=== PATIENT | male | born 1970 | race Caucasian/White ===

== ENCOUNTER 2016-11-13 16:29 | Observation (INO) | payer MEDICARE, OTHER ==
[~2016-11-13] VITALS: Ht 180.3 cm; Wt 122.3 kg
--- NOTE | ~2016-11-13 | HEMODYNAMI ---
PATIENT:DARA TOMPKINS MEDICAL RECORD: [id number] : 70 LOCATION:[facility] D.2114 ADMISSION DATE: 11/13/16 Generatedon:11/15/20169:49 Patient name: DARA TOMPKINS Patient #: [id number] SSN: : 1970 Date of study: 11/15/2016 Page: Of Hemodynamic Procedure Report Patient Data Patient Demographics Procedure consent was obtained First Name: DARA Gender: Male Last Name: LEDA : 1970 [facility] Initial: H Age: 46 year(s) Patient #: [id number] Race: Additional ID: [id number] Contact details Address: [address] [place] [address] State: [place] City: [place] Zip code: [address] Past Medical History History of disease Date Diagnosis Comments CAD Allergies: No known allergies Admission Admission Data Admission Date: 11/13/2016 Admission Time: 16:29 Room #: D.2114 Insurance Payor: Private health insurance, Medicare Height (in.): 71 BSA: 2.4 (m2) Height (cm.): 180.34 BMI: 37.82 (kg/m2) Weight (lbs.): 271.17 Weight (kg.): 123 Procedure Procedure Types Cath Procedure Diagnostic Procedure C [facility] w/Coronaries Miscellaneous Procedures Moderate Sedation up to 15 minutes Procedure Description Procedure Date Procedure Date: 11/15/2016 Procedure Start Time: 9:37 Procedure End Time: 9:44 Procedure Staff Name Function iRley Tran MD Performing Physician Kelly Marie RT Scrub Keith Gallardo RN Nurse Shashank Gilliam RT Monitor Procedure Data Cath Procedure Fluoroscopy Diagnostic fluoroscopy Total fluoroscopy Time: 1.2 time: 1.2 min min Diagnostic fluoroscopy Total fluoroscopy dose: 589 dose: 589 mGy mGy Contrast Material Contrast Material Type Amount (ml) Isovue 300 49 Entry Location Entry Primary Successful Side Size Upsize Upsize Entry Closure Succes sful Closure Location (Fr) 1 (Fr) 2 (Fr) Remarks Device Remarks Femoral Right 5 Fr Vascade artery Closure System Estimated blood loss: 5 ml Diagnostic catheters Device Type Used For End Catheter Placement Cordis 5Fr Pigtail Procedure Catheter (MP) Cordis 5Fr JL 4.0 Procedure Catheter (MP) Cordis 5Fr 3DRC Catheter Procedure (MP) Procedure Complications No complications Procedure Medications Medication Administration Route Dosage Oxygen NC 2 l/min Lidocaine 2% added to field 20 Heparin Flush Bag added to field 2 bags (1000units/500ml NS) 0.9% NaCl I.V. 100 ml/hr Versed I.V. 2 mg Fentanyl I.V. 100 mcg Versed I.V. 1 mg Fentanyl I.V. 50 mcg Versed I.V. 1 mg Hemodynamics Rest BSA: 2.4 (m2) O2 Consumption: Estimated: 284.47 (ml/min) O2 Consumption indexed: Estimated:118.53 (ml/min/m) Heart Rate: 65 (bpm) Snapshots Pre Cath Intra NCS Post Cath Vital Signs Time Heart Resp SPO2 etCO2 [id number] NIBP Rhythm Pain Sedation Rate (ipm) (%) (mmHg) (mmHg) (mmHg) Status Level (bpm) 9:31:21 64 14 95 0 0 94/54(79) NSR 0 (11) 10(A) , No pain 9:35:30 63 16 94 0 0 101/51(77) NSR 0 (11) 10(A) , No pain 9:39:40 62 17 94 0 0 101/51(68) NSR 0 (11) 9(A) , No pain 9:43:44 61 16 95 0 0 91/65(83) NSR 0 (11) 9(A) , No pain 9:48:31 64 16 94 0 0 85/63(69) NSR 0 (11) 10(A) , No pain Medications Time Medication Route Dose Verified Delivered Reason Notes Effect iveness by by 9:25:56 Oxygen NC 2 Riley Buffie used for l/min Chelsea Gallardo RN procedure 9:26:02 Lidocaine 2% added 20ml Riley Buffie used for to vial Chelsea Gallardo nurse [employer] field 9:26:07 Heparin Flush added 2 Riley Buffie used for Bag to bags Chelsea Gallardo nurse [employer] (1000units/500ml field NS) 9:26:16 0.9% NaCl I.V. 100 Riley Parker Per ml/hr Chelsea Gallardo RN physician 9:34:09 Versed I.V. 2 mg Riley Parker for Chelsea Gallardo RN sedation 9:34:14 Fentanyl I.V. 100 Riley Parker for mcg Chelsea Gallardo RN sedation 9:39:39 Versed I.V. 1 mg Riley Parker for Chelsea Gallardo RN sedation 9:39:53 Fentanyl I.V. 50 Riley Willettie for mcg Chelsea Gallardo RN sedation 9:42:00 Versed I.V. 1 mg Riley Parker for Chelsea Gallardo RN sedation Procedure Log Time Note 9:00:25 Kelly Marie RT(R) sent for patient. Start room use. 9:07:08 Diagnostic Cath Status : Elective 9:07:33 Time tracking: Regular hours 9:08:02 Plan of Care:Hemodynamics will remain stable., Cardiac rhythm will remain stable., Comfort level will be maintained., Respiratory function will remain adequate., Patient/ family verbilizes understanding of procedure., Procedure tolerated without complication., Recovers from procedure without complications.. 9:25:56 Oxygen 2 l/min NC was given by Keith Gallardo RN; used for procedure; 9:25:57 Patient received from Med II to CCL 1 Alert and oriented. Tansferred to table in Supine position. 9:26:02 Lidocaine 2% 20ml vial added to field was given by Keith Gallardo RN; used for procedure; 9:26:07 Heparin Flush Bag (1000units/500ml NS) 2 bags added to field was given by Keith Gallardo RN; used for procedure; 9:26:16 0.9% NaCl 100 ml/hr I.V. was given by Keith Gallardo RN; Per physician; 9:29:46 Kelly Marie RT(R) was relieved by Shashank Gilliam RT(R) as monitoring person 9:29:52 Plan of Care:Hemodynamics will remain stable., Cardiac rhythm will remain stable., Comfort level will be maintained., Respiratory function will remain adequate., Patient/ family verbilizes understanding of procedure., Procedure tolerated without complication., Recovers from procedure without complications.. 9:30:05 Warm blankets applied, and regine hugger turned on for patient comfort. 9:30:06 Correct patient and procedure confirmed by team. 9:30:07 Signed procedure consent form obtained from patient. 9:30:08 ECG and BP/O2 sat monitors applied to patient. 9:30:09 Baseline sample Acquired. 9:30:09 Vital chart was started 9:30:24 Rhythm: sinus rhythm 9:30:25 Full Disclosure recording started 9:31:20 H&P Date Dictated: 11/14/2016 Within 30 days and on chart.. 9:31:21 Pre-procedure instructions explained to patient. 9:31:21 Pre-op teaching completed and patient verbalized understanding. 9:31:23 Family unavailable. 9:31:24 Patient NPO since Midnight. 9:31:32 Patient allergic to No known allergies 9:31:34 Is the patient allergic to Iodine/contrast media? No. 9:31:35 Is patient on blood thinner?Yes 9:31:38 ACC The patient was administered the following blood thiners within the last 24 hours: ACCEffient 9:31:39 Patient diabetic? No. 9:31:43 Previous problem with sedation/anesthesia? No ? 9:31:46 Snore? Yes 9:31:47 Sleep apnea? Yes 9:31:48 Deviated septum? No 9:31:49 Opens mouth fully? Yes 9:31:49 Sticks out tongue? Yes 9:31:53 Airway obstruction? Yes COPD 9:31:57 Dentures? No ? 9:32:02 Pre procedure: right dorsailis pedis pulse 2+ Normal; easily identifiable; not easily obliterated 9:32:05 Patient pain scale 7/10 ?. 9:32:23 IV patent on arrival in left forearm with 0.9% NaCl at [facility]. 9:32:58 Lab Result : Creatinine 0.6 mg/dl 9:32:58 Lab Result : BUN 6 mg/dl 9:32:58 Lab Result : Hemoglobin 14.8 g/dl 9:33:03 Lab results completed and on chart. 9:33:05 Right groin area was prepped with chlora-prep and draped in sterile fashion 9:33:06 Alarms reviewed by R. N. 9:33:06 Sharps counted by scrub and verified by R.N. 9:33:10 Use device set Femoral Dx 9:33:11 Tegaderm 4 x 4 opened to sterile field. 9:33:14 Acist Manifold opened to sterile field. 9:33:15 Acist Hand Control opened to sterile field. 9:33:17 Acist Syringe opened to sterile field. 9:33:17 Bag Decanter opened to sterile field. 9:33:18 Cardinal Cath Pack opened to sterile field. 9:33:19 Terumo 5Fr [place] Sheath opened to sterile field. 9:33:19 St Abdiel 260cm J .035 wire opened to sterile field. 9:33:20 Cordis Infinity 5Fr Multipack catheter opened to sterile field. 9:33:28 --------ALL STOP TIME OUT------ 9:33:28 Final Timeout: patient, procedure, and site verified with staff and physician. All members of the team are in agreement. 9:33:30 Right groin site verified by team. 9:33:33 Physical assessment completed. ASA score P 3 - A patient with severe systemic disease as per Riley Tran MD. 9:33:35 Sedation plan: IV Moderate Sedation Versed, Fentanyl 9:34:09 Versed 2 mg I.V. was given by Keith Gallardo RN; for sedation; 9:34:14 Fentanyl 100 mcg I.V. was given by Keith Gallardo RN; for sedation; 9:36:57 Zero performed for pressure channel P1 9:37:05 Procedure started. 9:37:08 Local anesthetic to right femoral artery with Lidocaine 2% by Riley Tran MD.INITIAL ACCESS ONLY 9:37:15 A 5 Fr sheath was inserted into the Right Femoral artery 9:37:21 A Cordis 5Fr Pigtail Catheter (MP) was advanced over the wire and used for Procedure. 9:37:57 LV gram done using AQUINO 9:38:02 EF : 50 % 9:38:03 Catheter exchanged over wire. 9:38:07 A Cordis 5Fr JL 4.0 Catheter (MP) was advanced over the wire and used for Procedure. 9:39:10 LCA angiography performed. 9:39:39 Versed 1 mg I.V. was given by Keith Gallardo RN; for sedation; 9:39:53 Fentanyl 50 mcg I.V. was given by Keith Gallardo RN; for sedation; 9:40:24 Catheter exchanged over wire. 9:40:31 A Cordis 5Fr 3DRC Catheter (MP) was advanced over the wire and used for Procedure. 9:40:57 RCA totally occluded 9:41:03 Catheter removed. 9:41:09 Vascade 5Fr Closure Device opened to sterile field. 9:41:18 Patient Weight : 271.17 lbs 9:41:29 Patient Height : 71 inches 9:41:39 Insurance Payor : Private health insurance, Medicare 9:42:00 Versed 1 mg I.V. was given by Keith Gallardo RN; for sedation; 9:42:03 Sheath removed intact; hemostasis achieved with Vascade Closure System to the Right Femoral artery. 9:42:22 Procedure ended.(Physican Out) 9:42:35 Fluoroscopy time 01.20 minutes. 9:42:39 Flurop Dose total: 589 9:42:39 Fluoroscopy dose: 589 mGy 9:42:51 Contrast amount:Isovue 300 49ml. 9:42:53 Sharps counted by scrub and verified by R.N. 9:42:53 Insertion/operative site no bleeding no hematoma. 9:42:57 Post-op/insertion site Right Femoral artery dressed using a 4 x 4 and Tegaderm. 9:43:00 Post right femoral artery:stable, soft, clean and dry 9:43:02 Post Procedure Pulses reassessed and unchanged 9:43:09 Post-procedure physical assessment completed. ASA score P 3 - A patient with severe systemic disease as per Riley Tran MD. 9:43:12 Post procedure rhythm: unchanged. 9:43:14 Estimated blood loss: 5 ml 9:43:15 Post procedure instruction explained to patient.Patient verbalizes understanding. 9:43:15 Patient needs reinforcement of post procedure teaching. 9:43:57 Procedure type changed to Cath procedure, Diagnostic procedure, LHC, LHC w/Coronaries, Miscellaneous Procedures, Moderate Sedation up to 15 minutes 9:44:10 Procedure and supply charges have been captured, reviewed, submitted and are correct. 9:44:12 Procedure Complication : No complications 9:44:14 Vital chart was stopped 9:44:14 See physician's report for complete and final results. 9:44:15 Report given to PCU. 9:44:17 Patient transfered to PCU with Stretcher. 9:44:19 Procedure ended. 9:44:19 Full Disclosure recording stopped 9:44:25 ACC-PCI Only Patient was given prescriptions, or instructed by Riley Tran MD to start/continue the following medications upon discharge: Effient 9:45:14 End room use (Document Last) Device Usage Item Name Manufacture Quantity Catalog Number Hospital Part Current Minimal Lot# / Charge Number Stock Stock Serial# Code Tegaderm 1 [id number] [id number] 197799 5 4 x 4 Acist Acist 1 59388 206415 127000 594140 5 Manifold Medical Systems Inc Acist Acist 1 97712 044550 427086 019281 5 Hand Medical Control Systems Inc Acist Acist 1 25253 703468 165641 185519 20 Syringe Medical Systems Inc Bag Microtek 1 2002S 453487 08836 412235 5 Decanter Medical Inc. Cardinal Cardinal 1 [id number] 162635 33395 298618 5 Cath Pack Health Terumo Terumo 1 [id number] 306551 176917 631870 [address] [place] [address] Abd[address] St Abdiel 1 955847 704833 256369 703046 30 260cm J .035 wire Cordis Cardinal 1 [id number] 605485 37230 663481 30 Infinity Health 5Fr Multipack catheter Cordis Cardinal 1 105574 5 5Fr Health Pigtail Catheter (MP) Cordis Cardinal 1 691939 5 5Fr JL Health 4.0 Catheter (MP) Cordis Cardinal 1 [id number] 5 5Fr 3DRC Health Catheter (MP) Vascade Cardiva 1 [id number] 556022 34585 264636 10 5Fr Medical, Closure Inc. Device Signature Audit [place] Stage Time Signature Unsigned Intra-Procedure 11/15/2016 Shashank Gilliam 9:49:16 AM RT(R) Signatures Monitor : Shashank Gilliam RT Signature : Date : Time : [facility] [address] [facility] [place] [address]
[~2016-11-13 16:29] MED LIST: ASPIRIN325 MG PO; ASPIRIN81 MG PO; BABY ASPIRIN81 MG PO; BAYER CHEWABLE81 MG PO; BYSTOLIC20 MG PO; CARDIZEM120 MG; CARDIZEM120 MG PO; CIPRO500 MG PO; COMBIVENT INH14.7 GM INH; COMBIVENT RESPIM4 GM INH; CRESTOR5 MG PO; DALIRESP500 MCG PO; DILAUDID4 MG PO; DILAUDID8 MG PO; DUONEB 2.5-0.5 M3 ML UPD; EFFIENT10 MG PO; FLOMAX0.4 MG PO; HUMALOG 30100 UNITS/; HYDROXYZINE PA100 MG; IMDUR30 MG PO; IMDUR60 MG PO; LANTUS SOL100 UNIT/1 INJ; LANTUS SOL100 UNIT/1 SC; LASIX20 MG PO; LEVAQUIN500 MG PO; LIBRIUM5 MG PO; LOVENOX INJ100 MG/ML SC; LOVENOX150 MG/ML; LOVENOX150 MG/ML SC; LOVENOX150 MG/ML SQ; MIRALAX17 GM PO; NITROQUICK0.4 MG SL; OLEPTRO ER150 MG PO; OXYGEN; PERCOCET 5/3251 TA1 PO; PLAVIX75 MG PO; POTASSIUM99 M1 PO; PRAVACHOL40 MG PO; PREDNISONE10 MG; PREDNISONE20 MG PO; PROTONIX40 MG PO; SINGULAIR10 MG PO; TAPAZOLE 5 MG TA5 MG PO; THEO-24300 MG PO; THEO-24400 MG PO; THEOCHRON100 MG PO; TOPROL XL25 MG PO; TRAZODONE HCL150 MG PO; TRAZODONE HCL300 MG PO; TUSSIONEX 5 ML S5 ML PO; XANAX2 MG PO; XARELTO15 MG PO; XARELTO20 MG PO; ZEBETA10 MG PO; ZITHROMAX500 MG PO; ZOCOR20 MG PO
[2016-11-13] MEDS ORDERED: DILAUDID2 MG PO (16:54)
[2016-11-13 16:59] VITALS: BP 160/93
[2016-11-13 17:01] VITALS: BP 160/93; BMI 37.0
--- NOTE | 2016-11-13 17:12 | NUR ---
ARRIVED FROM DR. PAZ OFFICE VIA . ASSESSMENT DONE. ON 4L O2. MONITOR SHOWS SR @ 87. WILL CONTINUE TO MONITOR.
[2016-11-13 17:31] LABS: BASOPHILS 0.3 % (0.0-2.0); EOSINOPHILS 0.9 % (0-7); HEMATOCRIT 43.1 % (42.0-54.0); HEMOGLOBIN 14.8 g/dL (13.5-17.5); IMMATURE GRANULOCYTES 0.3 % (0-5); LYMPHOCYTES 21.7 % (15-50); MCH 28.7 pg (26.0-34.0); MCHC 34.3 g/dL (31.0-37.0); MCV 83.5 fL (80.0-100.0); MEAN PLATELET VOLUME 9.7 fL (7.4-10.4); MONOCYTES 4.5 % (2-11); NEUTROPHILS 72.3 % (40-80); PLATELET COUNT 261 10x3/uL (130-400); RBC 5.16 10x6/uL (4.20-6.10); WBC 10.9 10x3/uL (4.8-10.8)
[2016-11-13 17:54] LABS: CALC OSMOLALITY 277 mosm/kg (275-300); CALCIUM 9.1 mg/dL (8.5-10.1); CARBON DIOXIDE 28.5 mmol/L (21.0-32.0); CHLORIDE - SERUM 103 mmol/L (98-107); CREATININE - SERUM 0.6 mg/dL (0.6-1.3); GLUCOSE 110 mg/dL (74-106); POTASSIUM - SERUM 3.7 mmol/L (3.5-5.1); SODIUM 140 mmol/L (136-145); TROPONIN-I 0.045 ng/mL (0.000-0.060); UREA NITROGEN 6 mg/dL (7-18); eGFR NON AFRICAN AMERICAN > 90 mL/min (90-120)
[2016-11-13 22:18] VITALS: BP 155/97
--- NOTE | 2016-11-13 23:00 | NUR ---
REPORT RECIEVED AD INITIAL ASSESSMENT COMPLETE, PLEASE SEE FLOW SHEETS FOR DETAILS. COMPLAINS OF CHEST PAIN AT 9/10. ASKED FOR WATER BEFORE MIDNIGHT, THIS WAS PROVIDED. NO S&S OF ACUTE DISTRESS NOTED, WILL CONTINUE TO MONITOR.
--- NOTE | 2016-11-14 01:00 | NUR ---
PT SLEEPING, NO S&S OF ACUTE DISTRESS, RR EVEN AND UNLABORED. VSS AT THIS TIME, WILL CONTINUE TO MONITOR.
[2016-11-14 01:42] VITALS: BP 109/62
--- NOTE | 2016-11-14 05:18 | NUR ---
PT REFUSED TO TAKE MALCOLM PER PROFESSOR OF FAMILY MEDICINE, TALKED TO PT, HE AGREED TO SHOWER IF PROVIDED A SHOWER CHAIR. EXPLAINED THAT THIS WOULD BE PROVIDED.
[2016-11-14 05:48] VITALS: BP 104/73
[2016-11-14 07:45] VITALS: BP 114/48
--- NOTE | 2016-11-14 07:55 | NUR ---
SLEEPING AT PRESENT TIME. MONITOR SHOWS SINUS @ 70. WILL CONTINUE TO MONITOR
--- NOTE | 2016-11-14 10:06 | NUR ---
AWAKE CO CHEST PAIN "PRESSURE LIKE AND RADIATING DOWN LEFT ARM." PATIENT WARM AND DRY. MONITOR SHOWS NSR. DR. PAZ CALLED AND ORDERS RECEIVED FOR IV DILAUDID 1-2 MG Q2 FOR CHEST. IV OUT AND WAS RESTARTED WITH 20 G ON FIRST ATTEMPT. DILAUDID 1 MG GIVEN.
--- NOTE | 2016-11-14 11:57 | NUR ---
CO PAIN IN BACK AND L LEG. FEMSTOP RELEASED. NO BLEEDING AND EDEMA. SITE CLEAN ORDERS RECEIVED FROM DR. PAZ FOR MS IV FOR PAIN.
[2016-11-14 12:20] VITALS: BP 117/63
[2016-11-14 15:05] VITALS: Ht 180.3 cm; Wt 122.3 kg
[2016-11-14 15:43] VITALS: BP 131/56
[2016-11-14 20:03] VITALS: BP 181/96
[2016-11-15 01:14] VITALS: BP 102/57
[2016-11-15 04:00] VITALS: BP 101/56
--- NOTE | 2016-11-15 07:20 | NUR ---
PT LAYING IN BED WITH CELL PHONE IN HAND AND NO DISTRESS OBSERVED PT AMBULATORY TO BATHROOM WITH NO ASSISTANCE NEEDED CALL LIGHTIN REACH SRX2 BED LOW AND LOCKED PT REQUESTED PAIN MEDS X2 DOCUMENTED IN DEC. SR ON TELEMETRY AND RESPERATIONS EVEN AND UNLABORED ON 2LNC IVP TO RIGHT FOREARM SALINE LOCKED AND FLUSHED WITH 10CC SALINE WILL MONITOR
[2016-11-15 07:50] VITALS: BP 111/61
--- NOTE | 2016-11-15 09:10 | NUR ---
TELEMETRY SR. PRE-OPS GIVEN. TO CLERK OPERATOR BY BED.
--- NOTE | 2016-11-15 10:07 | NUR ---
BACK FROM SHIPPING PACKER. VS WNL. RIGHT GROIN STABLE WITHOUT BLEEDING OR HEMATOMA NBOTED. WILL MONITOR.
[2016-11-15] MEDS ORDERED: CARDIZEM CD240 MG PO (10:41)
[2016-11-15] MEDS ORDERED: ISOSORBIDE MONO60 M1 PO (10:44)
--- NOTE | 2016-11-15 11:57 | NUR ---
BR UP. GROIN STABLE. 500CC BOLLUS GIVEN FOR B/P 85/44. BP NOW STABLE AT 109/59. WILL CONT. PLAN OF CARE.
[2016-11-15 11:59] VITALS: BP 85/44
--- NOTE | 2016-11-15 14:29 | NUR ---
AWAKE AND ALERT. IV AND TELEMETRY DCD. DC PLANS GIVE. UNDERSTANDING VOICED. SPOKE TO FOR RIDE HOME. WILL CONT. PLAN OF CARE.
--- NOTE | 2016-11-15 16:09 | NUR ---
ESCORTED TO CAR BY W/C.
--- NOTE | 2016-11-16 13:59 | OP ---
PATIENT NAME: DARA TOMPKINS MEDICAL RECORD: [id number] :70 LOCATION:D.M2 D.2114 ADMISSION DATE:11/13/16 SURGEON: ISIDRA PAZ MD DATE OF OPERATION: 11/15/2016 PROCEDURES: 1. Left heart catheterization. 2. Selective coronary angiography. 3. Left ventriculogram. INDICATION: Angina and coronary artery disease. PROCEDURE: After informed consent was obtained and after detailed explanation of risks, benefits as well as alternative therapies, the patient elected to proceed with angiogram and heart catheterization. The right femoral area was prepped and draped in normal sterile fashion. The right femoral artery was cannulated via modified Seldinger technique with placement of 6-Khmer sheath. All catheters exchanged through this sheath. FINDINGS: Left ventriculogram was performed in standard 30-degree AQUINO view reveals preserved cardiac wall motion, ejection fraction 50%. SELECTIVE CORONARY ANGIOGRAPHY: 1. Left main showed no significant angiographic disease. 2. Left anterior descending has moderate irregularities, but no flow-limiting stenosis. 3. The left circumflex has moderate irregularities, but no flow-limiting stenosis. 4. Right coronary is chronically totally occluded. The distal right coronary fills via left to right collaterals. OVERALL IMPRESSION: Chronic total occlusion of the right coronary artery with left to right collaterals. Continue medical management of the coronary artery disease, cardiac risk factors, and chronic stable angina. TRANSINT:[id number] Voice Confirmation ID: [id number] DOCUMENT ID: [id number] ISIDRA PAZ MD at 1359 CC: [id number] DICTATION DATE: 11/15/16 0950 ELECTROSTATIC PAINTER: 11/15/16 1019 DIS IN 11/15/16 [facility] [address] [place] [address]
--- NOTE | 2016-11-16 13:59 | DS ---
PATIENT:DARA VENEGAS :70 MEDICAL RECORD: [id number] DISCHARGE SUMMARY ADMISSION DATE: 11/13/16 DISCHARGE DATE: 11/15/16 DISCHARGE DIAGNOSES: 1. Angina, chronic, stable. 2. Hypertension. 3. Chronic obstructive pulmonary disease. HOSPITAL COURSE: Mr. Venegas presents with anginal symptomatology and out of control hypertension. He underwent cardiac catheterization revealing total occlusion of the RCA with good collateral flow from left to right. His blood pressure was controlled with increasing his diltiazem and increasing his Imdur. His chest pain was well controlled. He was discharged home with the increased diltiazem, increased Imdur, discontinuation of the Procardia and continuing the atenolol. He will follow up with [facility] in 1 month. TRANSINT:[id number] Voice Confirmation ID: [id number] DOCUMENT ID: [id number] ISIDRA PAZ MD at 1359 CC: [id number] DICTATION DATE: 11/15/16 0948 MACHINE WHITENER: 11/15/16 1145 DIS IN 11/15/16 [facility] [address] [place] [address]
== END 2016-11-15 16:10 | disposition home or self-care (01) ==
LOC: OBSVTIME 16:29 → D.M2 16:29
PROVIDERS: ADMIT Internal Medicine Interventional Cardiology
DX: I25.118 Atherosclerotic heart disease of native coronary artery with other forms of angina pectoris (principal); I25.82 Chronic total occlusion of coronary artery; I10 Essential (primary) hypertension; J44.9 Chronic obstructive pulmonary disease, unspecified

== ENCOUNTER → 2016-11-30 09:27 | Outpatient (CLI) | payer MEDICARE, OTHER ==
[2016-11-14 15:05] VITALS: BMI 37.6
[~2016-11-30 09:27] MED LIST changes: +CARDIZEM CD240 MG PO; +DILAUDID2 MG PO; +HYDROCODONE-APA1 TAB PO; +IPRAT-ALBUT 0.5-3 ML UPD; +ISOSORBIDE MONO60 M1 PO; +LOVENOX40 MG/0.4 SC; +PHENERGAN25 M1 PO; +REGLAN10 MG PO
== END | disposition home or self-care (01) ==
LOC: D.RAD 09:27
DX: R13.10 Dysphagia, unspecified (principal); K21.9 Gastro-esophageal reflux disease without esophagitis

== ENCOUNTER 2016-12-12 07:13 | Day surgery (SDC) | payer MEDICARE, OTHER ==
[~2016-12-12] VITALS: Ht 180.3 cm; Wt 119.5 kg
[~2016-12-12 07:13] MED LIST changes: -HYDROCODONE-APA1 TAB PO; -IPRAT-ALBUT 0.5-3 ML UPD; -LOVENOX40 MG/0.4 SC; -PHENERGAN25 M1 PO; -REGLAN10 MG PO
[2016-12-12 08:34] LABS: HEMATOCRIT 44.5 % (42.0-54.0); HEMOGLOBIN 15.1 g/dL (13.5-17.5); MCH 28.2 pg (26.0-34.0); MCHC 33.9 g/dL (31.0-37.0); MEAN PLATELET VOLUME 9.7 fL (7.4-10.4); RBC 5.36 10x6/uL (4.20-6.10); RDW 14.1 % (11.5-14.5); WBC 10.2 10x3/uL (4.8-10.8)
[2016-12-12] MEDS ORDERED: XANAX2 MG PO (08:40)
[2016-12-12 08:46] LABS: CALC OSMOLALITY 276 mosm/kg (275-300); CALCIUM 9.5 mg/dL (8.5-10.1); CARBON DIOXIDE 29.3 mmol/L (21.0-32.0); CHLORIDE - SERUM 102 mmol/L (98-107); CREATININE - SERUM 0.7 mg/dL (0.6-1.3); GLUCOSE 125 mg/dL (74-106); POTASSIUM - SERUM 3.6 mmol/L (3.5-5.1); SODIUM 139 mmol/L (136-145); UREA NITROGEN 8 mg/dL (7-18); eGFR NON AFRICAN AMERICAN > 90 mL/min (90-120)
[2016-12-12 08:49] VITALS: BP 136/78; Ht 180.3 cm; Wt 119.5 kg
--- NOTE | 2016-12-12 13:51 | NUR ---
1115 IV DC WITH CATHER TIP INTACT
--- NOTE | 2017-01-05 13:21 | OP ---
PATIENT NAME: DARA TOMPKINS MEDICAL RECORD: [id number] :70 LOCATION:D.OPS ADMISSION DATE: SURGEON: SHAJI SHEPPARD MD DATE OF OPERATION: 12/12/2016 PREOPERATIVE DIAGNOSES: 1. History of achalasia. 2. Dysphagia. 3. Chronic obstructive pulmonary disease. 4. Coronary artery disease. 5. GERD. 6. Hypertension. 7. Hypercholesterolemia. 8. Obstructive sleep apnea. 9. Morbid obesity. 10. Diabetes mellitus. 11. History of deep venous thrombosis/pulmonary embolism. POSTOPERATIVE DIAGNOSES: 1. History of achalasia. 2. Dysphagia. 3. Chronic obstructive pulmonary disease. 4. Coronary artery disease. 5. GERD. 6. Hypertension. 7. Hypercholesterolemia. 8. Obstructive sleep apnea. 9. Morbid obesity. 10. Diabetes mellitus. 11. History of deep venous thrombosis/pulmonary embolism. PROCEDURE: EGD with biopsy. SURGEON: Shaji Sheppard MD REPORT OF PROCEDURE: An Olympus endoscope was advanced through the mouth and esophagus. We were able to pass through the stomach and into the duodenum. We got to the third portion of the duodenum. As we pulled back, I could see there was a polyp present just past the pylorus and biopsy was performed. We did not completely remove the polyp. It was approximately 1 to 1.5 cm in size. As we continued our pulled back, there was another small polyp present at the prepyloric region of the antrum. A biopsy was taken overlying this. Again, this was about 1 to 1.5 cm in size and appeared to be submucosal. There was some mild gastritis in the antrum of the stomach, but no other masses, lesions or ulcerations were visualized. We retroflexed the camera and can see that the patient still had an intact partial wrap from the previous Heller myotomy with Homer fundoplication. There was no sign of a hiatal hernia. We pulled back to the GE junction and can see there were some signs of some ulceration present. A biopsy was performed at the distal end of the esophagus. The esophagus itself appeared to be open and patent with no signs of continued achalasia. The remainder of the esophagus appeared to be normal with no masses or lesions visible. At this point, the insufflation was removed followed by the scope. COMPLICATIONS: None. OPERATIVE REPORT [id number] DARA TOMPKINS CONDITION: Stable. ANESTHESIA: TIVA. BLOOD LOSS: Minimal. TRANSINT:[id number] Voice Confirmation ID: [id number] DOCUMENT ID: [id number] SHAJI SHEPPARD MD at 1321 CC: MARYAM GONZALEZ MD [id number] DICTATION DATE: 12/12/16 1018 SODA TESTER: 12/12/16 1150 [facility] 12/12/[address] [address]
== END 2016-12-12 11:30 | disposition home or self-care (01) ==
LOC: D.OPS 07:13
PROVIDERS: Anesthesiology
DX: K29.50 Unspecified chronic gastritis without bleeding (principal); K22.0 Achalasia of cardia; R13.10 Dysphagia, unspecified; K21.9 Gastro-esophageal reflux disease without esophagitis; J44.9 Chronic obstructive pulmonary disease, unspecified; I25.10 Atherosclerotic heart disease of native coronary artery without angina pectoris; I10 Essential (primary) hypertension; E78.00 Pure hypercholesterolemia, unspecified; G47.33 Obstructive sleep apnea (adult) (pediatric); E66.01 Morbid (severe) obesity due to excess calories; E11.9 Type 2 diabetes mellitus without complications; Z86.718 Personal history of other venous thrombosis and embolism

== ENCOUNTER 2017-01-01 12:45 | Emergency (ER) | payer MEDICARE, OTHER ==
[2016-12-12 08:49] VITALS: BMI 36.7
[2017-01-01 13:39] LABS: BASOPHILS 0.3 % (0.0-2.0); EOSINOPHILS 1.4 % (0-7); HEMATOCRIT 44.2 % (42.0-54.0); HEMOGLOBIN 14.9 g/dL (13.5-17.5); IMMATURE GRANULOCYTES 0.2 % (0-5); LYMPHOCYTES 22.3 % (15-50); MCH 28.1 pg (26.0-34.0); MCHC 33.7 g/dL (31.0-37.0); MCV 83.2 fL (80.0-100.0); MEAN PLATELET VOLUME 10.3 fL (7.4-10.4); MONOCYTES 6.1 % (2-11); NEUTROPHILS 69.7 % (40-80); RBC 5.31 10x6/uL (4.20-6.10); RDW 14.3 % (11.5-14.5); WBC 11.2 10x3/uL (4.8-10.8)
[2017-01-01 14:02] LABS: PLATELET COUNT 318 10x3/uL (130-400)
[2017-01-01 14:02] LABS: ALBUMIN 3.8 g/dL (3.4-5.0); ALKALINE PHOSPHATASE 81 U/L (46-116); ALT (SGPT) 34 U/L (10-68); CALC OSMOLALITY 278 mosm/kg (275-300); CALCIUM 9.3 mg/dL (8.5-10.1); CARBON DIOXIDE 27.2 mmol/L (21.0-32.0); CHLORIDE - SERUM 100 mmol/L (98-107); CREATININE - SERUM 0.8 mg/dL (0.6-1.3); GLUCOSE 150 mg/dL (74-106); POTASSIUM - SERUM 3.3 mmol/L (3.5-5.1); PROTEIN - SERUM 7.8 g/dL (6.4-8.2); SODIUM 139 mmol/L (136-145); UREA NITROGEN 7 mg/dL (7-18); eGFR NON AFRICAN AMERICAN > 90 mL/min (90-120)
[2017-01-01 14:25] LABS: CHOL - HDL RATIO 5.2 ratio (2.3-4.9); CHOLESTEROL, TOTAL 194 mg/dL (0-200); CKMB 3.4 U/L (0.0-3.6); CREATINE KINASE 346 UL (21-232); HDL CHOLESTEROL 37 mg/dL (32-96); LDL CHOLESTEROL 110 mg/dL (0-100); MAGNESIUM - SERUM 1.9 mg/dL (1.8-2.4); PRO BNP 133 pg/mL (0-125); TROPONIN-I 0.049 ng/mL (0.000-0.060)
[2017-01-01 14:28] LABS: TRIGLYCERIDE 235 mg/dL (30-200)
== END 2017-01-01 17:48 | disposition home or self-care (01) ==
LOC: D.ER 12:45
PROVIDERS: Emergency Medicine
DX: R07.9 Chest pain, unspecified (principal); J44.9 Chronic obstructive pulmonary disease, unspecified; I10 Essential (primary) hypertension; J45.909 Unspecified asthma, uncomplicated; N40.0 Benign prostatic hyperplasia without lower urinary tract symptoms; E11.9 Type 2 diabetes mellitus without complications

== ENCOUNTER 2017-01-11 05:50 | Day surgery (SDC) | payer MEDICARE, OTHER ==
[2017-01-10 11:41] LABS: BASOPHILS 0.3 % (0.0-2.0); EOSINOPHILS 0.8 % (0-7); HEMATOCRIT 46.5 % (42.0-54.0); HEMOGLOBIN 15.7 g/dL (13.5-17.5); IMMATURE GRANULOCYTES 0.2 % (0-5); LYMPHOCYTES 16.2 % (15-50); MCHC 33.8 g/dL (31.0-37.0); MONOCYTES 5.1 % (2-11); NEUTROPHILS 77.4 % (40-80); PLATELET COUNT 281 10x3/uL (130-400); RDW 13.9 % (11.5-14.5); WBC 10.8 10x3/uL (4.8-10.8)
[2017-01-10 11:48] LABS: CALC OSMOLALITY 277 mosm/kg (275-300); CALCIUM 9.6 mg/dL (8.5-10.1); CARBON DIOXIDE 30.2 mmol/L (21.0-32.0); CHLORIDE - SERUM 101 mmol/L (98-107); CREATININE - SERUM 0.8 mg/dL (0.6-1.3); GLUCOSE 136 mg/dL (74-106); POTASSIUM - SERUM 4.4 mmol/L (3.5-5.1); SODIUM 139 mmol/L (136-145); UREA NITROGEN 8 mg/dL (7-18); eGFR NON AFRICAN AMERICAN > 90 mL/min (90-120)
[2017-01-10 11:56] LABS: APTT 25.6 SECONDS (22.8-39.4); INR 0.95 (0.85-1.17); PROTIME 12.6 SECONDS (11.6-15.0)
[~2017-01-11] VITALS: Ht 180.3 cm; Wt 118.2 kg
--- NOTE | ~2017-01-11 | OP ---
PATIENT NAME: DARA TOMPKINS MEDICAL RECORD: [id number] :70 LOCATION:D.MS [id number] ADMISSION DATE: SURGEON: SHAJI SHEPPARD MD DATE OF OPERATION: 01/11/2017 PREOPERATIVE DIAGNOSES: 1. Gastroesophageal reflux disease. 2. History of achalasia status post Heller myotomy. 3. Coronary artery disease. 4. Chronic obstructive pulmonary disease. 5. Diabetes mellitus. 6. Hypertension. 7. Hypercholesterolemia. 8. Obstructive sleep apnea. 9. Morbid obesity. 10. History of deep venous thrombosis/pulmonary thromboembolism POSTOPERATIVE DIAGNOSES: 1. Gastroesophageal reflux disease. 2. History of achalasia status post Heller myotomy. 3. Coronary artery disease. 4. Chronic obstructive pulmonary disease. 5. Diabetes mellitus. 6. Hypertension. 7. Hypercholesterolemia. 8. Obstructive sleep apnea. 9. Morbid obesity. 10. History of deep venous thrombosis/pulmonary thromboembolism. PROCEDURES: 4. Laparoscopic Toupet fundoplication with hiatal hernia repair. 5. Laparoscopic lysis of adhesions. SURGEON: Shaji Sheppard MD. REPORT OF PROCEDURE: The patient's abdomen was prepped and draped in sterile fashion. A Veress needle was inserted in the left upper quadrant and abdomen was insufflated. An 11-mm Visiport trocar was inserted in the midline just above the umbilicus. I could see the Veress needle at this point and could see there was no sign of any injury to bowel or surrounding structures. The 11-mm trocar was placed in the left subcostal region. A 5-mm trocar was placed in the epigastrium, a 5-mm blunt trocar was placed in the left subcostal region and a 5-mm trocar was placed in the right lateral subcostal region. The patient's abdomen was then inspected and there was a large amount of adhesions present in the patient's left upper quadrant from her previous laparoscopic Heller myotomy. These were taken down with a tedious blunt dissection and the use of Harmonic scalpel, I was eventually able to come around the fundus of the stomach where there were some scant adhesions present from previous ligation of the vessels at the previous surgery. At this point, I could see the lateral aspect of the patient's esophagus along with the left side of the right gavin. We dissected this free as much as we could. At this point, we went back to the area between the stomach and the liver bed. Again, the adhesions here were very dense, but I was eventually able to get through these adhesions. There were a few times when I got some bites end of the liver. Any liver bleeding was treated with electrocautery. I was eventually able to get to the right side of the right OPERATIVE REPORT [id number] DARA TOMPKINS. We continued our dissection up into the thoracic cavity, was eventually able to dissect out the patient's small hiatal hernia. The patient's esophageal hiatus was opened and I did not see any evidence of the sutures, which were placed at the previous surgery. Once we had a completely dissected free, then we reapproximated the esophageal hiatus with interrupted 0 Polydek times 3. There was good reapproximation of the tissue at this point. We then performed a 270-degree posterior to Toupet wrap. The stomach was pulled posterior to the esophagus. Three sutures were used to affix this portion of the stomach to the right side of the patient's esophagus. The most superior suture was actually attached to the patient's esophageal hiatus. The other 2 were used to get bites into the patient's esophagus, this rewrap the other side. This again incorporating the bite of the esophageal hiatus with the most superior bite and the other 2 bites of the stomach incorporated by the patient's esophagus. At this point, the wrap appeared to be intact. I inspected closely and saw no sign of any bleeding. We irrigated out the abdomen thoroughly with normal saline and one last inspection showed there did not appear to be any sign of any bile leakage present. At this point, the two 11-mm trocar site fascias were closed with 0 Vicryl using a Venancio-Herminia suture passer device. At this point, the ports and insufflation were then removed. The subcutaneous tissues were infused with a total of 10 mL of 0.25% Marcaine with epinephrine and the skin incisions were then closed with subcutaneous 5-0 Monocryl. COMPLICATIONS: None. CONDITION: Stable. ANESTHESIA: General endotracheal and local. BLOOD LOSS: 50 mL. TRANSINT:[id number] Voice Confirmation ID: [id number] DOCUMENT ID: [id number] SHAJI SHEPPARD MD CC: MARYAM GONZALEZ MD [id number] DICTATION DATE: 01/11/17 4525 EDUCATION PROFESSOR: 04/06/17 1556 [facility] [address] [id number]
[2017-01-11 06:56] VITALS: BP 134/78; BMI 36.3
[2017-01-11] MEDS ORDERED: IPRAT-ALBUT 0.5-3 ML UPD (06:56)
[2017-01-11 12:16] VITALS: BP 168/104
[2017-01-11 12:25] VITALS: BP 168/104; Ht 180.3 cm; Wt 118.2 kg
--- NOTE | 2017-01-11 12:33 | NUR ---
RECIEVED TO ROOM FROM R WITH PAIN UNCONTROLLED RATE OF 10 LAP SITES X 5 NOTED TO ABDOMEN FIRM. VERY TENDER. PIV TO RIGHT FORARM PROJECT OFFICER DILAUDID INIATED BOLUS DOSE OF 0.4 MG GIVEN O2 4LPM NOTED
[2017-01-11 12:52] VITALS: BP 168/96
--- NOTE | 2017-01-11 14:58 | NUR ---
PT AWAKE LYING IN BED WITH NO ACUTE DISTRESS NOTED PATIENT ACCESS DIRECTOR DILAUDID BEING USED FOR PAIN CONTROL.
[2017-01-11 16:00] VITALS: BP 156/95
--- NOTE | 2017-01-11 18:58 | NUR ---
TOLERATING PAIN MEDS WELL PAIN CONTROLLED WITH DILAUDID FOUNDRY HAND LAP SITES X 5 WITH NO BLEEDING NOTED VITAL SIGNS WNL.
[2017-01-11 19:00] VITALS: BP 146/86
[2017-01-12] VITALS: BP 163/82
[2017-01-12 04:00] VITALS: BP 154/92
--- NOTE | 2017-01-12 04:28 | NUR ---
PT HAS LIED IN BED ALL SHIFT. ENCOURAGED PT TO MOVE AROUND AND SIT UP IN BED TO NO AVAIL. PT USING QUARRYING SPECIALIST FOR PAIN CONTROL. NO OTHER NEEDS. WILL CONTINUE TO MONITOR.
[2017-01-12 05:26] LABS: BASOPHILS 0.2 % (0.0-2.0); EOSINOPHILS 2.3 % (0-7); HEMATOCRIT 43.4 % (42.0-54.0); HEMOGLOBIN 14.4 g/dL (13.5-17.5); IMMATURE GRANULOCYTES 0.2 % (0-5); LYMPHOCYTES 11.8 % (15-50); MCH 28.1 pg (26.0-34.0); MCHC 33.2 g/dL (31.0-37.0); MCV 84.6 fL (80.0-100.0); MEAN PLATELET VOLUME 10.3 fL (7.4-10.4); MONOCYTES 7.9 % (2-11); NEUTROPHILS 77.6 % (40-80); PLATELET COUNT 252 10x3/uL (130-400); RBC 5.13 10x6/uL (4.20-6.10); RDW 14.3 % (11.5-14.5); WBC 11.1 10x3/uL (4.8-10.8)
[2017-01-12 05:43] LABS: CALC OSMOLALITY 272 mosm/kg (275-300); CALCIUM 8.7 mg/dL (8.5-10.1); CARBON DIOXIDE 31.1 mmol/L (21.0-32.0); CHLORIDE - SERUM 100 mmol/L (98-107); CREATININE - SERUM 0.8 mg/dL (0.6-1.3); GLUCOSE 98 mg/dL (74-106); POTASSIUM - SERUM 3.9 mmol/L (3.5-5.1); SODIUM 137 mmol/L (136-145); UREA NITROGEN 9 mg/dL (7-18); eGFR NON AFRICAN AMERICAN > 90 mL/min (90-120)
--- NOTE | 2017-01-12 07:15 | NUR ---
ANA AT BEDSIDE.PT IS TALKING WITH HER,HE WANTS FOOD AND DRINKS.HE IS WITHOUT DISTRESS AND NAUSEA.CALL LIGHT IN REACH.INSTRUCTED USE.
--- NOTE | 2017-01-12 07:35 | NUR ---
GETTING DRESSED FOR XRAY, HOPEFUL TO HAVE FOOD LATER TODAY, DENIES NEEDS, BED LOWEST POSITION, CALL LIGHT IN REACH, WILL CONTINUE TO MONITOR
[2017-01-12 08:20] VITALS: BP 123/76
[2017-01-12 12:14] VITALS: BP 125/74
[2017-01-12] MEDS ORDERED: DILAUDID2 MG PO (13:11)
[2017-01-12] MEDS ORDERED: HYDROCODONE-APA1 TAB PO (13:12)
[2017-01-12] MEDS ORDERED: REGLAN10 MG PO (13:13)
[2017-01-12] MEDS ORDERED: PHENERGAN25 M1 PO (13:13)
--- NOTE | 2017-01-12 14:20 | NUR ---
DISCHARGE PAPER AND INSTRUCTIONS GIVEN TO PT AND SPOUSE, QUESTIONS ANSWERED, IV REMOVED TIP INTACT, DISCHARGED PER WC WITH BELONGINGS
== END 2017-01-12 14:23 | disposition home or self-care (01) ==
LOC: D.MS 05:50 → D.OPS 05:50 → D.PAN 07:30 → D.MS 11:55 → D.OPS 01-12 14:23
PROVIDERS: Surgery
DX: K21.9 Gastro-esophageal reflux disease without esophagitis (principal); I25.10 Atherosclerotic heart disease of native coronary artery without angina pectoris; J44.9 Chronic obstructive pulmonary disease, unspecified; E11.9 Type 2 diabetes mellitus without complications; I10 Essential (primary) hypertension; E78.00 Pure hypercholesterolemia, unspecified; E66.01 Morbid (severe) obesity due to excess calories; Z68.36 Body mass index [BMI] 36.0-36.9, adult; Z86.718 Personal history of other venous thrombosis and embolism; G47.33 Obstructive sleep apnea (adult) (pediatric)

== ENCOUNTER 2017-01-14 09:57 | Emergency (ER) | payer MEDICARE, OTHER ==
[~2017-01-14 09:57] MED LIST changes: +HYDROCODONE-APA1 TAB PO; +IPRAT-ALBUT 0.5-3 ML UPD; +PHENERGAN25 M1 PO; +REGLAN10 MG PO
[2017-01-14 10:37] LABS: BASOPHILS 0.2 % (0.0-2.0); EOSINOPHILS 5.7 % (0-7); HEMATOCRIT 45.3 % (42.0-54.0); HEMOGLOBIN 15.2 g/dL (13.5-17.5); IMMATURE GRANULOCYTES 0.3 % (0-5); LYMPHOCYTES 17.4 % (15-50); MCHC 33.6 g/dL (31.0-37.0); MCV 83.4 fL (80.0-100.0); MEAN PLATELET VOLUME 9.9 fL (7.4-10.4); MONOCYTES 6.7 % (2-11); NEUTROPHILS 69.7 % (40-80); PLATELET COUNT 258 10x3/uL (130-400); RBC 5.43 10x6/uL (4.20-6.10); RDW 13.9 % (11.5-14.5)
[2017-01-14 10:45] LABS: APTT 25.1 SECONDS (22.8-39.4); INR 1.11 (0.85-1.17); PROTIME 14.2 SECONDS (11.6-15.0)
[2017-01-14 10:50] LABS: ALBUMIN 3.4 g/dL (3.4-5.0); ALKALINE PHOSPHATASE 79 U/L (46-116); ALT (SGPT) 68 U/L (10-68); BILIRUBIN - TOTAL 0.52 mg/dL (0.2-1.3); CALC OSMOLALITY 272 mosm/kg (275-300); CALCIUM 9.4 mg/dL (8.5-10.1); CARBON DIOXIDE 29.4 mmol/L (21.0-32.0); CHLORIDE - SERUM 99 mmol/L (98-107); CREATININE - SERUM 0.8 mg/dL (0.6-1.3); GLUCOSE 117 mg/dL (74-106); POTASSIUM - SERUM 3.7 mmol/L (3.5-5.1); PROTEIN - SERUM 8.1 g/dL (6.4-8.2); SODIUM 137 mmol/L (136-145); UREA NITROGEN 7 mg/dL (7-18); eGFR NON AFRICAN AMERICAN > 90 mL/min (90-120)
[2017-01-14 14:34] LABS: APPEARANCE CLEAR (CLEAR); BACTERIA FEW /hpf (NONE SEEN); BILIRUBIN NEGATIVE (NEGATIVE); COLOR DK YELLOW (YELLOW); EPITHELIAL CELLS OCC /hpf (0-5); GLUCOSE NEGATIVE (NEGATIVE); KETONE MODERATE mg/dL (NEGATIVE); LEUKOCYTE ESTERASE 1+ (NEGATIVE); MUCUS <1+ /lpf (NONE SEEN); NITRITE NEGATIVE (NEGATIVE); PROTEIN NEGATIVE (NEGATIVE); SPECIFIC GRAVITY 1.005 (1.005-1.020)
--- NOTE | 2017-02-14 09:43 | PN ---
PATIENT:DARA VENEGAS MEDICAL RECORD: [id number] LOCATION:D.ER ADMISSION DATE: 01/14/17 PROGRESS NOTE DATE OF SERVICE: 01/14/2017 CHIEF COMPLAINT: Coughing up blood. I received a beep from Mr. Venegas earlier today. I answered his beep. He states that he has been coughing up blood, having hematochezia, is also his hematuria. He was having some shortness of breath. He is on 4 liters of oxygen by nasal cannula at home. He recently underwent a Payam fundoplication. I saw him in the Emergency Room. I think he can be dismissed home. I have personally reviewed the CT images. I have personally reviewed the CT report. He does not have a pulmonary embolism on the CT scan of the chest. He does have a right upper quadrant cecum but it does not appear to be a cecal volvulus. He does not have pain in the right upper quadrant. Most of the pain is around the incisions and the epigastrium as well as the left upper quadrant. The patient had a DVT in the past. He is on Effient as well as Lovenox. I told him to stop Lovenox for a week, can continue the Effient. Hopefully, this will help cause the bleeding to stop. In a week, he can restart the Lovenox. When Dr. Sheppard returns tomorrow, I will tell him about my visit with Mr. Venegas in the Emergency Room. TRANSINT:[id number] Voice Confirmation ID: [id number] DOCUMENT ID: [id number] LUIS ANTONIO ALLEN MD at 0943 CC: MARYAM GONZALEZ MD and KRISTINA SHEPPARD MD [id number] DICTATION DATE: 01/14/17 1457 WAD BLANKING PRESS ADJUSTER: 01/14/[address] [facility] ER 01/14/17 [facility] [address] [id number]
== END 2017-01-14 15:39 | disposition home or self-care (01) ==
LOC: D.ER 09:57
PROVIDERS: Emergency Medicine; Nurse Practitioner Family
DX: R10.9 Unspecified abdominal pain (principal); R11.2 Nausea with vomiting, unspecified; Z98.890 Other specified postprocedural states; J45.909 Unspecified asthma, uncomplicated; N40.0 Benign prostatic hyperplasia without lower urinary tract symptoms; J44.9 Chronic obstructive pulmonary disease, unspecified; E11.9 Type 2 diabetes mellitus without complications; I10 Essential (primary) hypertension

== ENCOUNTER → 2017-02-01 09:17 | Outpatient (CLI) | payer MEDICARE, OTHER ==
[2017-01-11 12:25] VITALS: BMI 36.3
[~2017-02-01 09:17] MED LIST changes: +LOVENOX40 MG/0.4 SC
== END | disposition home or self-care (01) ==
LOC: D.RAD 09:17
DX: R13.10 Dysphagia, unspecified (principal)

== ENCOUNTER 2017-02-02 09:03 | Day surgery (SDC) | payer MEDICARE, OTHER ==
[~2017-02-02] VITALS: Ht 180.3 cm; Wt 110.0 kg
[~2017-02-02 09:03] MED LIST changes: -LOVENOX40 MG/0.4 SC
[2017-02-02 10:13] LABS: BASOPHILS 0.3 % (0-2); EOSINOPHILS 3.5 % (0-7); HEMATOCRIT 46.5 % (42.0-54.0); HEMOGLOBIN 15.7 g/dL (13.5-17.5); IMMATURE GRANULOCYTES 0.2 % (0-5); LYMPHOCYTES 25.5 % (15-50); MCH 28.5 pg (26.0-34.0); MCHC 33.8 g/dL (31.0-37.0); MCV 84.5 fL (80.0-100.0); MEAN PLATELET VOLUME 10.1 fL (7.4-10.4); MONOCYTES 5.2 % (2-11); NEUTROPHILS 65.3 % (40-80); PLATELET COUNT 269 10x3/uL (130-400); RDW 14.4 % (11.5-14.5); WBC 8.9 10x3/uL (4.8-10.8)
[2017-02-02 10:25] LABS: CALC OSMOLALITY 273 mosm/kg (275-300); CALCIUM 9.5 mg/dL (8.5-10.1); CHLORIDE - SERUM 101 mmol/L (98-107); CREATININE - SERUM 0.9 mg/dL (0.6-1.3); GLUCOSE 99 mg/dL (74-106); POTASSIUM - SERUM 3.7 mmol/L (3.5-5.1); SODIUM 138 mmol/L (136-145); UREA NITROGEN 8 mg/dL (7-18); eGFR NON AFRICAN AMERICAN > 90 mL/min (90-120)
[2017-02-02 10:29] VITALS: BP 126/87; Ht 180.3 cm; Wt 110.0 kg
[2017-02-02 10:41] LABS: INR 1.01 (0.85-1.17); PROTIME 13.1 SECONDS (11.6-15.0)
[2017-02-02] MEDS ORDERED: LOVENOX40 MG/0.4 SC (10:44)
--- NOTE | 2017-02-06 14:52 | OP ---
PATIENT NAME: DARA TOMPKINS MEDICAL RECORD: [id number] :70 LOCATION:DTammyOPS ADMISSION DATE: SURGEON: KRISTINA SHEPPARD MD DATE OF OPERATION: 02/02/2017 PREOPERATIVE DIAGNOSES: 1. Food bolus in the esophagus. 2. Gastroesophageal reflux disease, status post recent Toupet fundoplication. 3. Achalasia with history of Heller myotomy. 4. Chronic obstructive pulmonary disease. 5. Morbid obesity. 6. History of deep venous thrombosis/pulmonary embolism on chronic blood thinners. POSTOPERATIVE DIAGNOSES: 1. Food bolus in the esophagus. 2. Gastroesophageal reflux disease, status post recent Toupet fundoplication. 3. Achalasia with history of Heller myotomy. 4. Chronic obstructive pulmonary disease. 5. Morbid obesity. 6. History of deep venous thrombosis/pulmonary embolism on chronic blood thinners. PROCEDURE: EGD with removal of esophageal food bolus. SURGEON: Kristina Sheppard MD. REPORT OF PROCEDURE: An Olympus endoscope was advanced through the mouth and esophagus. In the lower third of the esophagus, we encountered a large bolus of food, it was difficult to determine what the contents were, but it appeared to be a potato or possibly shrimp, it appeared to have been present there for quite some time as it was not very firm, but just balled and mashed up. There was a pill that was present within it. As I maneuvered around this and into the stomach, I could see that the opening from the recent Toupet fundoplication was open and patent into the stomach without obstruction. I then backed up and began manipulation of the food bolus and was eventually able to get most of the food bolus into the stomach through the distal esophagus, there were a few pieces of the food bolus, which I could not manipulate down and these were grasped and brought out through the mouth. At the conclusion of the case, we had irrigated out the esophagus and all of the food bolus was completely removed. The stomach itself appeared to be intact and there was no sign of any injury to the esophagus or GE junction. At this point, the insufflation and the scope were removed. COMPLICATIONS: None. CONDITION: Stable. ANESTHESIA: TIVA. BLOOD LOSS: None. TRANSINT:[id number] Voice Confirmation ID: [id number] DOCUMENT ID: [id number] OPERATIVE REPORT [id number] BROWN,KRISTINA LOPEZ MD at 1452 CC: [id number] DICTATION DATE: 02/02/17 1333 SUPERINTENDENT TESTS: 02/02/172024 [facility] 02/02/17 [address] [place] [address]
== END 2017-02-02 13:30 | disposition home or self-care (01) ==
LOC: D.OPS 09:03
PROVIDERS: Anesthesiology
DX: T18.128A Food in esophagus causing other injury, initial encounter (principal); K21.9 Gastro-esophageal reflux disease without esophagitis; K22.0 Achalasia of cardia; J44.9 Chronic obstructive pulmonary disease, unspecified; E66.01 Morbid (severe) obesity due to excess calories; Z86.718 Personal history of other venous thrombosis and embolism

== ENCOUNTER 2017-04-24 13:55 | Emergency (ER) | payer MEDICARE, OTHER ==
[2017-02-02 10:29] VITALS: BMI 33.8
[~2017-04-24 13:55] MED LIST changes: +LOVENOX40 MG/0.4 SC
[2017-04-24 14:33] LABS: BASOPHILS 0.4 % (0-2); EOSINOPHILS 3.2 % (0-7); HEMATOCRIT 43.3 % (42.0-54.0); HEMOGLOBIN 14.7 g/dL (13.5-17.5); IMMATURE GRANULOCYTES 0.3 % (0-5); LYMPHOCYTES 28.3 % (15-50); MCH 29.1 pg (26.0-34.0); MCHC 33.9 g/dL (31.0-37.0); MCV 85.6 fL (80.0-100.0); MEAN PLATELET VOLUME 9.4 fL (7.4-10.4); NEUTROPHILS 60.8 % (40-80); PLATELET COUNT 292 10x3/uL (130-400); RBC 5.06 10x6/uL (4.20-6.10); RDW 14.8 % (11.5-14.5); WBC 9.6 10x3/uL (4.8-10.8)
[2017-04-24 14:46] LABS: APPEARANCE CLEAR (CLEAR); BILIRUBIN NEGATIVE (NEGATIVE); COLOR YELLOW (YELLOW); GLUCOSE NEGATIVE (NEGATIVE); KETONE NEGATIVE (NEGATIVE); LEUKOCYTE ESTERASE NEGATIVE (NEGATIVE); NITRITE NEGATIVE (NEGATIVE); PROTEIN NEGATIVE (NEGATIVE); UROBILINOGEN NORMAL (NORMAL)
[2017-04-24 14:58] LABS: ALBUMIN 3.8 g/dL (3.4-5.0); ALKALINE PHOSPHATASE 83 U/L (46-116); ALT (SGPT) 60 U/L (10-68); BILIRUBIN - TOTAL 0.23 mg/dL (0.2-1.3); CALC OSMOLALITY 282 mosm/kg (275-300); CALCIUM 8.8 mg/dL (8.5-10.1); CARBON DIOXIDE 27.6 mmol/L (21.0-32.0); CHLORIDE - SERUM 100 mmol/L (98-107); CREATININE - SERUM 0.7 mg/dL (0.6-1.3); POTASSIUM - SERUM 4.3 mmol/L (3.5-5.1); PROTEIN - SERUM 7.5 g/dL (6.4-8.2); SODIUM 139 mmol/L (136-145); UREA NITROGEN 13 mg/dL (7-18); eGFR NON AFRICAN AMERICAN > 90 mL/min (90-120)
[2017-04-24 14:58] LABS: UDS - AMPHET NEGATIVE QUAL (NEGATIVE); UDS - BARB NEGATIVE QUAL (NEGATIVE); UDS - BENZO POSITIVE QUAL (NEGATIVE); UDS - COCAINE NEGATIVE QUAL (NEGATIVE); UDS - METH NEGATIVE QUAL (NEGATIVE); UDS - OPIATE NEGATIVE QUAL (NEGATIVE); UDS - PCP NEGATIVE QUAL (NEGATIVE); UDS - THC NEGATIVE QUAL (NEGATIVE)
[2017-04-24 15:02] LABS: GLUCOSE 194 mg/dL (74-106); TROPONIN-I 0.042 ng/mL (0.000-0.060)
== END 2017-04-24 18:43 | disposition home or self-care (01) ==
LOC: D.ER 13:55
PROVIDERS: Emergency Medicine
DX: R06.00 Dyspnea, unspecified (principal); F17.200 Nicotine dependence, unspecified, uncomplicated; I10 Essential (primary) hypertension; J44.9 Chronic obstructive pulmonary disease, unspecified; E11.9 Type 2 diabetes mellitus without complications; Z95.5 Presence of coronary angioplasty implant and graft; R94.31 Abnormal electrocardiogram [ECG] [EKG]

== ENCOUNTER 2017-06-06 18:00 | Observation (INO) | payer MEDICARE, OTHER ==
[~2017-06-06] VITALS: Ht 180.3 cm; Wt 126.0 kg
--- NOTE | 2017-06-06 18:31 | NUR ---
TRANSFER FROM ADMISSIONS BY W/C. OREINTED TO ROOM. CALL LIGHT IN REACH. WILL CONT. PLAN OF CARE.
[2017-06-06 19:00] VITALS: BP 141/113
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
[2017-06-06 23:55] VITALS: BP 141/113; BMI 13.9
[2017-06-07] VITALS: BP 114/61
[2017-06-07 04:00] VITALS: BP 94/57
[2017-06-07 09:12] VITALS: BP 100/57
[2017-06-07 11:33] VITALS: BP 102/62
[2017-06-07 13:41] VITALS: Ht 180.3 cm; Wt 126.0 kg
--- NOTE | 2017-06-07 16:30 | NUR ---
REVIEWED DISCHARGED INSTRUCTIONS WITH PT STATES UNDERSTANDING COPY GIVEN DCD SALINE LOCK TO RFA WITH IV CATHETER INTACT SITE FREE OF REDNESS OR EDEMA PT DISCHARGED HOME LEFT UNIT VIA W/C IN STABLE CONDITION WITH ALL PERSONAL BELONGINGS
--- NOTE | 2017-06-08 13:52 | DS ---
PATIENT:DARA VENEGAS :70 MEDICAL RECORD: [id number] DISCHARGE SUMMARY ADMISSION DATE: 06/06/17 DISCHARGE DATE: 06/07/17 DATE OF SERVICE: 06/07/2017 DISCHARGE DIAGNOSES: 1. Angina. 2. Coronary artery disease. 3. Chronic obstructive pulmonary disease. 4. Hypertension. 5. Hyperlipidemia. HOSPITAL COURSE: Mr. Venegas presents with increasing anginal symptomatology; however, cardiac catheterization reveals no new disease. We will continue medical management of the chronic stable angina. TRANSINT:[id number] Voice Confirmation ID: [id number] DOCUMENT ID: [id number] ISIDRA PAZ MD at 1352 CC: [id number] DICTATION DATE: 06/07/17 1244 CAREER DEVELOPMENT DIRECTOR: 06/08/17 0115 DIS IN 06/07/17 [facility] [address] [place] [address]
--- NOTE | 2017-06-08 13:52 | OP ---
PATIENT NAME: DARA TOMPKINS MEDICAL RECORD: [id number] :70 LOCATION:D.M2 D.2117 ADMISSION DATE:06/06/17 SURGEON: ISIDRA PAZ MD DATE OF OPERATION: 06/07/2017 PROCEDURES: 1. Left heart catheterization. 2. Selective coronary angiography. 3. Left ventriculogram. INDICATION: Angina and coronary artery disease. PROCEDURE IN DETAIL: After informed consent was obtained and after detailed explanation of risks, benefits as well as alternative therapies, the patient elected to proceed with angiogram and heart catheterization. The right femoral area was prepped and draped in normal sterile fashion. The right femoral artery was cannulated via modified Seldinger technique with placement of 6-Burundian sheath. All catheters exchanged through this sheath. FINDINGS: The left ventriculogram was performed in the standard 30-degree AQUINO view, reveals global hypokinesis throughout all segments. Overall ejection fraction estimated at 35%. SELECTIVE CORONARY ANGIOGRAPHY: 1. Left main showed no significant angiographic disease. 2. Left anterior descending has moderate irregularities, but no flow-limiting stenosis. 3. The left circumflex shows moderate irregularities, but no flow-limiting stenosis. 4. Right coronary is chronically totally occluded, unchanged from previous angiography. OVERALL IMPRESSION: Wide patency of the left system, chronic total occlusion of the RCA, unchanged from previous angiography. Center medical management on treatment of chronic stable angina. TRANSINT:[id number] Voice Confirmation ID: [id number] DOCUMENT ID: [id number] ISIDRA PAZ MD at 1352 CC: [id number] DICTATION DATE: 06/07/17 1246 CERTIFIED PERFORMANCE TECHNOLOGIST: 06/07/17 1832 DIS IN 06/07/17 [address] [place] [address]
== END 2017-06-07 16:30 | disposition home or self-care (01) ==
LOC: D.M2 18:00 → OBSVTIME 18:00 → D.M2 18:00
PROVIDERS: ADMIT Internal Medicine Interventional Cardiology
DX: I25.118 Atherosclerotic heart disease of native coronary artery with other forms of angina pectoris (principal); I10 Essential (primary) hypertension; J44.9 Chronic obstructive pulmonary disease, unspecified; E78.5 Hyperlipidemia, unspecified

== ENCOUNTER 2017-06-28 13:57 | Emergency (ER) | payer MEDICARE, OTHER ==
[2017-06-07 13:41] VITALS: BMI 38.7
[2017-06-28 16:32] LABS: BASOPHILS 0.5 % (0-2); EOSINOPHILS 3.3 % (0-7); HEMATOCRIT 44.4 % (42.0-54.0); HEMOGLOBIN 15.4 g/dL (13.5-17.5); IMMATURE GRANULOCYTES 0.2 % (0-5); LYMPHOCYTES 26.2 % (15-50); MCH 28.9 pg (26.0-34.0); MCHC 34.7 g/dL (31.0-37.0); MCV 83.3 fL (80.0-100.0); MEAN PLATELET VOLUME 10.4 fL (7.4-10.4); MONOCYTES 7.8 % (2-11); PLATELET COUNT 313 10x3/uL (130-400); RBC 5.33 10x6/uL (4.20-6.10); RDW 13.7 % (11.5-14.5); WBC 9.5 10x3/uL (4.8-10.8)
[2017-06-28 16:36] LABS: ALBUMIN 3.8 g/dL (3.4-5.0); ALKALINE PHOSPHATASE 87 U/L (46-116); ALT (SGPT) 30 U/L (10-68); BILIRUBIN - TOTAL 0.18 mg/dL (0.2-1.3); CALC OSMOLALITY 279 mosm/kg (275-300); CARBON DIOXIDE 25.1 mmol/L (21.0-32.0); CHLORIDE - SERUM 101 mmol/L (98-107); CREATININE - SERUM 0.8 mg/dL (0.6-1.3); GLUCOSE 190 mg/dL (74-106); POTASSIUM - SERUM 4.5 mmol/L (3.5-5.1); PROTEIN - SERUM 7.4 g/dL (6.4-8.2); SODIUM 138 mmol/L (136-145); UREA NITROGEN 9 mg/dL (7-18); eGFR NON AFRICAN AMERICAN > 90 mL/min (90-120)
[2017-06-28 16:43] LABS: APTT 24.7 SECONDS (22.8-39.4); INR 0.89 (0.85-1.17); PROTIME 11.9 SECONDS (11.6-15.0)
== END 2017-06-28 19:28 | disposition home or self-care (01) ==
LOC: D.ER 13:57
PROVIDERS: Physician Assistant
DX: M79.605 Pain in left leg (principal); R22.42 Localized swelling, mass and lump, left lower limb; Z86.718 Personal history of other venous thrombosis and embolism; J44.9 Chronic obstructive pulmonary disease, unspecified; Z86.79 Personal history of other diseases of the circulatory system; E11.9 Type 2 diabetes mellitus without complications

== ENCOUNTER 2017-07-10 02:07 | Observation (INO) | payer MEDICARE, OTHER ==
--- NOTE | ~2017-07-10 | HEMODYNAMI ---
PATIENT:DARA TOMPKINS MEDICAL RECORD: [id number] : 70 LOCATION:[facility] D.2115 ADMISSION DATE: 07/10/17 Generatedon:07/10/201711:25 Patient name: DARA TOMPKINS Patient #: [id number] SSN: : 1970 Date of study: 07/10/2017 Page: Of Hemodynamic Procedure Report Patient Data Patient Demographics Procedure consent was obtained First Name: DARA Gender: Male Last Name: LEDA : 1970 [facility] Initial: H Age: 47 year(s) Patient #: [id number] Race: Additional ID: [id number] Contact details Address: [address] [place] [address] State: [place] City: [place] Zip code: [address] Past Medical History History of disease Date Diagnosis Comments CAD Allergies: No known allergies Admission Admission Data Admission Date: 07/10/2017 Admission Time: 2:07 Room #: D.2115 Height (in.): 70.87 BSA: 2.4 (m2) Height (cm.): 180 BMI: 37.96 (kg/m2) Weight (lbs.): 271.17 Weight (kg.): 123 Lab Results Lab Result Date: 07/10/2017 Lab Result Time: 0:00 Biochemistry Name Units Result Min Max BUN mg/dl 15 --(--*-)-- 7 18 Creatinine mg/dl 0.8 --(-*--)-- 0.6 1.3 CBC Name Units Result Min Max Hematocrit % 44.2 --(*---)-- 42 54 Hemoglobin g/dl 15 --(-*--)-- 13.5 17.5 Procedure Procedure Types Cath Procedure Diagnostic Procedure [facility] w/Coronaries Miscellaneous Procedures Moderate Sedation up to 15 minutes Procedure Description Procedure Date Procedure Date: 07/10/2017 Procedure Start Time: 11:18 Procedure End Time: 11:23 Procedure Staff Name Function Riley Tran MD Performing Physician Kelly PATEL Scrub Keith Gallardo RN Nurse Kym Schreiber RT Monitor Procedure Data Cath Procedure Fluoroscopy Diagnostic fluoroscopy Total fluoroscopy Time: 0.7 time: 0.7 min min Diagnostic fluoroscopy Total fluoroscopy dose: 368 dose: 368 mGy mGy Contrast Material Contrast Material Type Amount (ml) Isovue 300 35 Entry Location Entry Primary Successful Side Size Upsize Upsize Entry Closure Succes sful Closure Location (Fr) 1 (Fr) 2 (Fr) Remarks Device Remarks Femoral Right 5 Fr Exoseal artery Estimated blood loss: 10 ml Diagnostic catheters Device Type Used For End Catheter Placement Cordis 5Fr Pigtail Procedure Catheter (MP) Cordis 5Fr JL 4.0 Procedure Catheter (MP) Cordis 5Fr 3DRC Catheter Procedure (MP) Procedure Complications No complications Procedure Medications Medication Administration Route Dosage Oxygen NC 2 l/min Lidocaine 2% added to field 20 Heparin Flush Bag added to field 2 bags (1000units/500ml NS) 0.9% NaCl I.V. 100 ml/hr Versed I.V. 2 mg Fentanyl I.V. 100 mcg Versed I.V. 1 mg Fentanyl I.V. 50 mcg Versed I.V. 1 mg Fentanyl I.V. 50 mcg Hemodynamics Rest BSA: 2.4 (m2) O2 Consumption: Estimated: 326.4 (ml/min) O2 Consumption indexed: Estimated:136 (ml/min/m) Pre Cath Intra NCS Post Cath Vital Signs Time Heart Resp SPO2 NIBP (mmHg) Rhythm Pain Sedation Rate (ipm) (%) Status Level (bpm) 11:09:51 82 15 97 160/100(134) NSR 0 (11) 10(A) , No pain 11:14:11 81 15 96 146/91(127) NSR 0 (11) 10(A) , No pain 11:18:23 80 14 98 158/98(115) NSR 0 (11) 9(A) , No pain 11:22:31 78 15 97 146/98(138) NSR 0 (11) 10(A) , No pain Medications Time Medication Route Dose Verified Delivered Reason Notes Effe ctiveness by by 11:08:11 Oxygen NC 2 Riley Parker used for l/min Chelsea Gallardo agricultural services director 11:08:21 Lidocaine 2% added 20ml Riley Lin for local to vial Chelsea Tran MD anesthetic field 11:08:30 Heparin Flush added 2 Riley Lin used for Bag to bags Chelsea Tran MD procedure (1000units/500ml field NS) 11:08:38 0.9% NaCl I.V. 100 Riley Buffie Per ml/hr Chelsea Gallardo RN physician 11:13:59 Versed I.V. 2 mg Riley Buffie for Chelsea Gallardo RN sedation 11:14:06 Fentanyl I.V. 100 Riley Buffie for mcg Chelsea Gallardo RN sedation 11:18:26 Versed I.V. 1 mg Riley Buffie for Chelsea Gallardo RN sedation 11:18:30 Fentanyl I.V. 50 Riley Buffie for mcg Chelsea Gallardo RN sedation 11:21:49 Versed I.V. 1 mg Riley Buffie for Chelsea Gallardo RN sedation 11:21:53 Fentanyl I.V. 50 Riley Buffie for mcg Chelsea Gallardo RN sedation Procedure Log Time Note 10:31:25 Kelly Marie RT(R) sent for patient. Start room use. 10:31:30 Diagnostic Cath Status : Elective 10:53:29 Patient Height : 180 inches 10:53:33 Patient Weight : 123 lbs 10:54:17 Lab Result : Hematocrit 44.2 % 10:54:17 Lab Result : Hemoglobin 15 g/dl 10:54:17 Lab Result : BUN 15 mg/dl 10:54:17 Lab Result : Creatinine 0.8 mg/dl 10:55:10 Time tracking: Regular hours 10:55:14 Plan of Care:Hemodynamics will remain stable., Cardiac rhythm will remain stable., Comfort level will be maintained., Respiratory function will remain adequate., Patient/ family verbilizes understanding of procedure., Procedure tolerated without complication., Recovers from procedure without complications.. 10:55:21 Patient received from Med II to CCL 2 Alert and oriented. Tansferred to table in Supine position. 10:55:23 Warm blankets applied, and regine hugger turned on for patient comfort. 10:55:24 Correct patient and procedure confirmed by team. 10:55:26 Signed procedure consent form obtained from patient. 10:55:37 H&P Date Dictated: 07/09/2017 Within 30 days and on chart.. 10:55:40 Family unavailable. 10:55:45 Patient NPO since Midnight. 10:55:53 Patient allergic to No known allergies 10:55:56 Is the patient allergic to Iodine/contrast media? No. 11:08:11 Oxygen 2 l/min NC was administered by Keith Gallardo RN; used for procedure; 11:08:21 Lidocaine 2% 20ml vial added to field was administered by Riley Tran MD; for local anesthetic; 11:08:30 Heparin Flush Bag (1000units/500ml NS) 2 bags added to field was administered by Riley Tran MD; used for procedure; 11:08:38 0.9% NaCl 100 ml/hr I.V. was administered by Keith Gallardo RN; Per physician; 11:08:44 Vital chart was started 11:12:17 Is patient on blood thinner?No 11:12:22 Patient diabetic? Yes. 11:12:30 Snore? Yes 11:12:33 Sleep apnea? No 11:12:43 Airway obstruction? Yes COPD 11:12:47 Dentures? No ? 11:12:52 Patient pain scale 0/10 ?. 11:13:16 IV started by Keith Gallardo RN inLeft upper arm with a 22 gauge IV catheter with 0.9% NaCl at KVO. 11:13:20 Lab results completed and on chart. 11:13:24 Right groin area was prepped with chlora-prep and draped in sterile fashion 11:13:26 Alarms reviewed by R. N. 11:13:26 Sharps counted by scrub and verified by R.N. 11:13:28 Physician arrived 11:13:29 --------ALL STOP TIME OUT------ 11:13:30 Final Timeout: patient, procedure, and site verified with staff and physician. All members of the team are in agreement. 11:13:33 Right groin site verified by team. 11:13:38 Sedation plan: IV Moderate Sedation Versed, Fentanyl 11:13:59 Versed 2 mg I.V. was administered by Keith Gallardo RN; for sedation; 11:14:06 Fentanyl 100 mcg I.V. was administered by Keith Gallardo RN; for sedation; 11:17:33 Use device set Femoral Dx 11:17:35 Acist Syringe opened to sterile field. 11:17:35 Bag Decanter opened to sterile field. 11:17:36 Medline Cath Pack opened to sterile field. 11:17:36 Terumo 5Fr [place] Sheath opened to sterile field. 11:17:37 St Abdiel 260cm J .035 wire opened to sterile field. 11:17:38 Acist Hand Control opened to sterile field. 11:17:38 Acist Manifold opened to sterile field. 11:17:38 Diagnostic Infinity 5Fr Multipack catheter opened to sterile field. 11:17:39 Tegaderm 4 x 4 opened to sterile field. 11:17:47 Procedure started. 11:17:48 Full Disclosure recording started 11:18:06 Local anesthetic to right femoral artery with Lidocaine 2% by Riley Tran MD.INITIAL ACCESS ONLY 11:18:18 A 5 Fr sheath was inserted into the Right Femoral artery 11:18:22 Zero performed for pressure channel P1 11:18:26 Versed 1 mg I.V. was administered by Keith Gallardo RN; for sedation; 11:18:27 Zero performed for pressure channel P1 11:18:30 Fentanyl 50 mcg I.V. was administered by Keith Gallardo RN; for sedation; 11:18:35 Zero performed for pressure channel P1 11:18:43 Zero performed for pressure channel P1 11:19:06 A Cordis 5Fr Pigtail Catheter (MP) was advanced over the wire and used for Procedure. 11:19:15 EF : 50 % 11:19:17 Catheter removed. 11:19:24 A Cordis 5Fr JL 4.0 Catheter (MP) was advanced over the wire and used for Procedure. 11:20:08 Catheter removed. 11:20:39 A Cordis 5Fr 3DRC Catheter (MP) was advanced over the wire and used for Procedure. 11:20:54 Catheter removed. 11:21:02 Cordis 5Fr Exoseal opened to sterile field. 11:21:39 Sheath removed intact; hemostasis achieved with Exoseal to the Right Femoral artery. 11:21:43 Procedure ended.(Physican Out) 11:21:49 Versed 1 mg I.V. was administered by Keith Gallardo RN; for sedation; 11:21:53 Fentanyl 50 mcg I.V. was administered by Keith Gallardo RN; for sedation; 11:21:54 Fluoroscopy time 00.70 minutes. 11::57 Fluoroscopy dose: 368 mGy 11:21:57 Flurop Dose total: 368 11:22:01 Contrast amount:Isovue 300 35ml. 11:22:34 Sharps counted by scrub and verified by R.N. 11:22:36 Insertion/operative site no bleeding no hematoma. 11:22:40 Post right femoral artery:stable 11:22:42 Post Procedure Pulses reassessed and unchanged 11:22:46 Post procedure rhythm: unchanged. 11:22:49 Estimated blood loss: 10 ml 11:22:50 Post procedure instruction explained to patient.Patient verbalizes understanding. 11:22:55 Procedure and supply charges have been captured, reviewed, submitted and are correct. 11:23:15 Procedure Complication : No complications 11:23:17 Vital chart was stopped 11:23:18 See physician's report for complete and final results. 11:23:20 Report given to [facility]. 11:23:26 Patient transfered to [facility] with Bed. 11:23:28 Procedure ended. 11:23:28 Full Disclosure recording stopped 11:23:39 End room use (Document Last) Device Usage Item Name Manufacture Quantity Catalog Hospital Part Current Minimal Lo t# / Number Charge Number Stock Stock Serial# Code Acist Acist 1 10873 350556 658553 147431 20 Syringe [employer] Inc Bag Microtek 1 2002S 500239 08790 479922 5 Decanter [employer] Medline Cardinal 1 [id number] 077787 23722 771356 5 Cath Pack Health Terumo 5Fr Terumo 1 [id number] 593234 669800 061163 [address] [place] [address] Abdiel 1 789464 369713 002514 584104 30 260cm J .035 wire Acist Hand Acist 1 33437 834769 474074 593756 5 Control [employer] Inc Acist Acist 1 00692 717210 259434 104468 5 Manifold Medical [employer] Inc Diagnostic Cardinal 1 DW2450 007577 88626 612096 30 Infinity Health 5Fr Multipack catheter Tegaderm 4 3M 1 1626W 418338 351487 352527 5 x 4 Cordis 5Fr Cardinal 1 397383 5 Pigtail Health Catheter (MP) Cordis 5Fr Cardinal 1 018404 5 JL 4.0 Health Catheter (MP) Cordis 5Fr Cardinal 1 748036 5 3DRC Health Catheter (MP) Cordis 5Fr Cardinal 1 EX500 467112 751055 050750 10 Exoseal Health Signature Audit [place] Stage Time Signature Unsigned Intra-Procedure 07/10/2017 Kym Schreiber 11:25:36 AM RT(R) Signatures Monitor : Kym Schreiber Signature : RT Date : Time : [address] [place] [address]
--- NOTE | 2017-07-10 01:50 | NUR ---
PT ARRIVES VIA EMS FROM [facility]. ASSISTED INTO BED VIA EMS. RESP EVEN AND UNLABORED. AUDIBLE WHEEZING HEARD THROUGH OUT ALL LUNG BARNARD. O2 4LPM NC - PT STATES WEARING THIS AT HOME. SATS 96%. NSR ON MONITOR, HR 90'S. ROSARIO CATH TO BSD, DRAINS CLEAR ANDREA URINE. MEDICATIONS RECONCILED AT THE BEDSIDE. ASSESSMENT AND HISTORY COMPLETED. UNIT ROUTINES AND PROTOCOLS DISCUSSED WITH PT, UNDERSTANDING VERBALIZED. CALL LIGHT PLACED WITHIN REACH. WILL CONT TO MONITOR.
[2017-07-10 02:09] VITALS: BP 145/122; BMI 38.0
--- NOTE | 2017-07-10 02:38 | NUR ---
SPOKE WITH DR MORGAN RE: ADMISSION ORDERS. WILL KEEP NPO FOR POSSIBLE CATH IN AM BY DR PAZ. PT UPDATED ON POC AND VERBALIZES UNDERSTANDING. WILL CONT TO MONITOR.
--- NOTE | 2017-07-10 03:13 | NUR ---
PT C/O CHEST PAIN, RATES @ 6/10 ON PAIN SCALE. ALSO REPORTS FEELING NAUSEATED AND C/O DYSPNEA. MORPHINE 4 MG IV AND ZOFRAN 4 MG IV GIVEN. CALL TO RT BHAVANI - NOTIFIED THAT PT IS REQUESTING A BREATHING TREATMENT. WILL MONITOR.
[2017-07-10 04:28] VITALS: BP 117/83
--- NOTE | 2017-07-10 07:35 | NUR ---
ASSESSMENT COMPLETED. MORPHINE GIVEN FOR C/O PAIN. TELEMERTY SHOWS SR 98 . O2 AT 4 L/M PER NC. ROSARIO CATH PATENT TO GRAVITY BAG. NPO FOR CATH. WILL MONITOR
[2017-07-10 08:01] LABS: BASOPHILS 0.5 % (0-2); EOSINOPHILS 3.2 % (0-7); HEMATOCRIT 44.2 % (42.0-54.0); IMMATURE GRANULOCYTES 0.1 % (0-5); LYMPHOCYTES 28.1 % (15-50); MCH 28.1 pg (26.0-34.0); MCHC 33.9 g/dL (31.0-37.0); MCV 82.9 fL (80.0-100.0); MEAN PLATELET VOLUME 9.4 fL (7.4-10.4); MONOCYTES 7.4 % (2-11); NEUTROPHILS 60.7 % (40-80); PLATELET COUNT 259 10x3/uL (130-400); RBC 5.33 10x6/uL (4.20-6.10); RDW 13.5 % (11.5-14.5); WBC 9.8 10x3/uL (4.8-10.8)
[2017-07-10 08:09] LABS: CALC OSMOLALITY 278 mosm/kg (275-300); CALCIUM 8.8 mg/dL (8.5-10.1); CARBON DIOXIDE 29.6 mmol/L (21.0-32.0); CHLORIDE - SERUM 101 mmol/L (98-107); CREATININE - SERUM 0.8 mg/dL (0.6-1.3); GLUCOSE 170 mg/dL (74-106); SODIUM 137 mmol/L (136-145); UREA NITROGEN 15 mg/dL (7-18); eGFR NON AFRICAN AMERICAN > 90 mL/min (90-120)
[2017-07-10 09:05] VITALS: BP 150/88
[2017-07-10 10:19] VITALS: BMI 37.9
--- NOTE | 2017-07-10 10:54 | NUR ---
TO TRANSITIONAL NURSE PER BED
--- NOTE | 2017-07-10 12:00 | NUR ---
BACK FROM RESIDENT PHYSICIAN. V/S STABLE. LEFT GROIN SOFT WITH DRSG DRY AND INTACT. TELEMERTY SHOWS SR. PPP. CLEAN CATH.
[2017-07-10 15:25] VITALS: BP 118/89
--- NOTE | 2017-07-10 18:09 | NUR ---
PT WANTING TO GO HOME. AWAITING DR SCHERER'S RECOMMENDATION FOR ROSARIO. RIGHT GROIN SOFT WITH DRSG DRY AND INTACT. PPP. TELEMERTY SHOWS SR..WILL MONITOR
[2017-07-10 19:00] VITALS: BP 131/82
--- NOTE | 2017-07-10 19:30 | NUR ---
ASSESSMENT COMPLETE, A&O. RESPERATIONS EVEN ON O2 AT 4 LITER VIA NC. IV TO LEFT UPPER ARM SL, SITE CLEAN AND DRY. ROSARIO CATH DRAINING TO GRAVITY. DRSG TO RIGHT GROIN C/D/I. PT DENIES PAIN OR NEEDS, BED LOW, CL IN REACH, WILL CONT TO MONITOR.
--- NOTE | 2017-07-10 21:50 | NUR ---
HS MEDS GIVEN WITH FRESH ICE WATER. XANAX 2 MG GIVEN AT TPT REQUEST TO ASSIST WITH ANXIETY AND SLEEP. NO OTHER NEEDS AT THIS TIME VOICED. BED LOW, CL IN REACH.
--- NOTE | 2017-07-11 00:08 | NUR ---
MOLD OPERATOR AT BED SIDE TO OBTAIN VITALS.
[2017-07-11 04:00] VITALS: BP 100/47
--- NOTE | 2017-07-11 04:58 | NUR ---
PT LYING IN BED ON LEFT SIDE, RESPIRATIONS EVEN AND UNLABORED. CONTINUE TO MONITOR.
[2017-07-11 08:11] VITALS: BP 131/77
--- NOTE | 2017-07-11 11:46 | OP ---
PATIENT NAME: DARA TOMPKINS MEDICAL RECORD: [id number] :70 LOCATION:D.M2 D.2115 ADMISSION DATE:07/10/17 SURGEON: ISIDRA PAZ MD DATE OF OPERATION: 07/10/2017 PROCEDURES: 1. Left heart catheterization. 2. Selective coronary angiography. 3. Left ventriculogram. INDICATION: Chest pain compatible with angina, increased troponin. PROCEDURE: After informed consent was obtained and after a detailed explanation of risks and benefits as well as alternative therapies, the patient elected to proceed with angiogram and heart catheterization. The right femoral area was prepped and draped in normal sterile fashion. The right femoral artery was cannulated via modified Seldinger technique with placement of a 6-Lao sheath. All catheter was exchanged through this sheath. FINDINGS: The left ventriculogram was performed in standard 30-degree AQUINO view, reveals inferior hypokinesis. Ejection fraction 45% to 50%. SELECTIVE CORONARY ANGIOGRAPHY: 1. Left main showed no significant angiographic disease. 2. Left anterior descending has mild irregularities, but no flow-limiting stenosis. 3. Left circumflex shows mild irregularities, but no flow-limiting stenosis. 4. Right coronary is chronically totally occluded, unchanged from previous angiography. OVERALL IMPRESSION: Wide patency of the left system. Chronic total occlusion of the RCA, unchanged from previous angiography. Chest pain is secondary to the demand ischemia from the distal RCA. TRANSINT:[id number] Voice Confirmation ID: [id number] DOCUMENT ID: [id number] ISIDRA PAZ MD at 1146 CC: [id number] DICTATION DATE: 07/10/17 1126 MAIL CARRIER TECHNICIAN: 07/10/17 1209 ADM IN [facility] [address] [id number]
--- NOTE | 2017-07-11 14:03 | NUR ---
IV AND TELEMETRY DCD FOR DC. WILL DC HOME WITH ROSARIO CATH. RESTS IN BED AWAITING RIDE HOME.
--- NOTE | 2017-07-11 15:00 | NUR ---
ESCORTED PATIENT VIA WHEELCHAIR TO AWAITING VEHICLE. SPOKE WITH SHREDDED FILLER CIGAR MAKER MACHINE WHO IDENTIFIED HERSELF MRS. TOMPKINS/PT'S SPOUSE. ASSISTED PATIENT INTO VEHICLE, SECURED DOOR AND WITNESSED VEHICLE DRIVE OUT OF DROP OFF/BUNK ASSEMBLER AREA.
--- NOTE | 2017-07-13 13:09 | DS ---
PATIENT:DARA VENEGAS :70 MEDICAL RECORD: [id number] DISCHARGE SUMMARY ADMISSION DATE: 07/10/17 DISCHARGE DATE: 07/11/17 DISCHARGE DIAGNOSES: 1. Chest pain. 2. Coronary artery disease. 3. Previous percutaneous transluminal coronary angioplasty stent. 4. Urinary retention. 5. Bladder pacemaker. HOSPITAL COURSE: Mr. Venegas presented to [place] [facility] with urinary retention. His troponin was mildly elevated. He was sent here. He has a chronically totally occluded RCA. Angiogram revealed no change. He was discharged home. No change in cardiac medication. Keep his cardiac followup as previously scheduled. TRANSINT:[id number] Voice Confirmation ID: [id number] DOCUMENT ID: [id number] ISIDRA PAZ MD at 1309 CC: [id number] DICTATION DATE: 07/11/17 1147 WEBSITE PROGRAMMER: 07/11/17 1442 DIS IN 07/11/17 [address] [place] [address]
== END 2017-07-11 15:06 | disposition home or self-care (01) ==
LOC: OBSVTIME 02:07 → D.M2 02:07 → D.SDCHOLD 18:01 → D.M2 18:02
PROVIDERS: Internal Medicine Interventional Cardiology; ADMIT Internal Medicine Interventional Cardiology
DX: I24.8 Other forms of acute ischemic heart disease (principal); I25.119 Atherosclerotic heart disease of native coronary artery with unspecified angina pectoris; Z95.5 Presence of coronary angioplasty implant and graft; R79.89 Other specified abnormal findings of blood chemistry; I25.82 Chronic total occlusion of coronary artery; R33.9 Retention of urine, unspecified; E11.9 Type 2 diabetes mellitus without complications; I10 Essential (primary) hypertension; J44.9 Chronic obstructive pulmonary disease, unspecified; Z86.718 Personal history of other venous thrombosis and embolism; Z79.01 Long term (current) use of anticoagulants; Z87.891 Personal history of nicotine dependence

== ENCOUNTER 2018-11-30 15:52 | Observation (INO) | payer MEDICARE, OTHER ==
[~2018-11-30] VITALS: Ht 180.3 cm; Wt 106.8 kg
--- NOTE | ~2018-11-30 | HEMODYNAMI ---
PATIENT:DARA TOMPKINS MEDICAL RECORD: [id number] : 70 LOCATION:[facility] D.2115 ADMISSION DATE: 11/30/18 Generatedon:12/03/201810:43 Patient name: DARA TOMPKINS Patient #: [id number] SSN: : 1970 Date of study: 12/03/2018 Page: Of Hemodynamic Procedure Report Patient Data Patient Demographics Procedure consent was obtained First Name: DARA Gender: Male Last Name: LEDA : 1970 [facility] Initial: H Age: 48 year(s) Patient #: [id number] Race: Additional ID: [id number] Contact details [address]: [address] [place] [address] State: [place] City: [place] Zip code: [address] Past Medical History History of disease Date Diagnosis Comments CAD Allergies: No known allergies Admission Admission Data Admission Date: 11/30/2018 Admission Time: 15:52 Room #: .[facility]5 Weight (lbs.): 235.9 Weight (kg.): 107 Lab Results Lab Result Date: 12/03/2018 Lab Result Time: 0:00 Biochemistry Name Units Result Min Max BUN mg/dl 11 --(-*--)-- 7 18 Creatinine mg/dl 0.8 --(-*--)-- 0.6 1.3 CBC Name Units Result Min Max Hemoglobin g/dl 12.4 *-(----)-- 13.5 17.5 Platelets 10^3/l 260 --(-*--)-- 130 400 Coagulation Name Units Result Min Max INR units 2.28 --(----)-* 0.85 1.17 PT sec 24.4 --(----)-* 11.6 15 Procedure Procedure Types Cath Procedure Diagnostic Procedure LHC LHC w/Coronaries Procedure Description Procedure Date Procedure Date: 12/03/2018 Procedure Start Time: 10:30 Procedure End Time: 10:38 Procedure Staff Name Function Riley Tran MD Performing Physician Otoniel Moreno RT Monitor Kelly Marie RT Scrub Silvina Friend RT Scrub Alcon Parra RN Nurse Kym Schreiber RT Monitor Procedure Data Cath Procedure Fluoroscopy Diagnostic fluoroscopy Total fluoroscopy Time: 1.3 time: 1.3 min min Diagnostic fluoroscopy Total fluoroscopy dose: 534 dose: 534 mGy mGy Contrast Material Contrast Material Type Amount (ml) Isovue 300 48 Entry Location Entry Primary Successful Side Size Upsize Upsize Entry Closure Castillo ccessful Closure Location (Fr) 1 (Fr) 2 (Fr) Remarks Device Remarks Radial Right 6 Fr Mechanical artery Short Compression Estimated blood loss: 10 ml Diagnostic catheters Device Type Used For End Catheter Placement DIAGNOSTIC Mobile 110cm 5 Procedure Fr catheter ([id number]) Procedure Complications No complications Procedure Medications Medication Administration Route Dosage 0.9% NaCl I.V. 100 ml/hr Oxygen etCO2 Nasal cannula 2 l/min Heparin Flush Bag added to field 2 bags (1000units/500ml NS) Lidocaine 2% added to field 20 Radial Cocktail added to field 1 syringe (Verapomil 2mg/Nitro 400mcg/Heparin 1500units) Versed I.V. 2 mg Fentanyl I.V. 100 mcg Versed I.V. 2 mg Fentanyl I.V. 100 mcg Versed I.V. 2 mg Radial Cocktail I.A. 1 syringe (Verapomil 2mg/Nitro 400mcg/Heparin 1500units) Hemodynamics Rest HGB: 12.4 (g/dl) Heart Rate: 68 (bpm) Snapshots Pre Cath Intra NCS Post Cath Vital Signs Time Heart Resp SPO2 etCO2 NIBP (mmHg) Rhythm Pain Sedation Rate (ipm) (%) (mmHg) Status Level (bpm) 9:33:20 66 20 100 0 137/85(101) NSR 0 (11) 10(A) , No pain 9:37:32 68 15 96 0 141/84(115) NSR 0 (11) 10(A) , No pain 9:42:21 63 14 97 0 137/83(107) NSR 0 (11) 10(A) , No pain 9:46:35 66 14 96 0 129/76(105) NSR 0 (11) 10(A) , No pain 9:50:45 62 12 97 0 131/83(106) NSR 0 (11) 10(A) , No pain 9:54:55 64 19 97 0 134/78(97) NSR 0 (11) 10(A) , No pain 10:00:22 70 15 95 0 140/84(99) NSR 0 (11) 10(A) , No pain 10:04:32 65 10 97 0 139/82(97) NSR 0 (11) 10(A) , No pain 10:08:42 64 19 96 0 128/84(105) NSR 0 (11) 10(A) , No pain 10:14:30 73 12 95 0 137/84(105) NSR 0 (11) 10(A) , No pain 10:18:44 63 17 95 0 136/78(111) NSR 0 (11) 10(A) , No pain 10:22:56 67 15 100 0 134/84(98) NSR 0 (11) 10(A) , No pain 10:27:08 66 14 99 0 133/82(121) NSR 0 (11) 10(A) , No pain 10:38:06 68 12 98 0 114/78(101) NSR 0 (11) 10(A) , No pain Medications Time Medication Route Dose Verified Delivered Reason Notes Effectiveness by by 9:32:14 0.9% NaCl I.V. 100 Alcon Alcon Per ml/hr Aida Parra physician RN RN 9:32:30 Oxygen etCO2 2 l/min Alcon Alcon for low 02 Nasal Lorigan Lorigan sats cannula RN RN 9:32:45 Heparin Flush added 2 bags Alcon Alcon used for Bag to Lorigan Aida procedure (1000units/500ml RN RN NS) 9:32:56 Lidocaine 2% added 20ml Alcon Alcon for local to vial Lorigan Lorigan anesthetic field PATEL RN 9:35:12 Radial Cocktail added 1 Alcon Alcon used for (Verapomil to syringe Lorigan Lorigan procedure 2mg/Nitro RN RN 400mcg/Heparin 1500units) 10:28:26 Versed I.V. 2 mg Alcon Alcon for sedation Aida Parra RN RN 10:28:34 Fentanyl I.V. 100 mcg Alcon Alcon for sedation Aida Parra RN RN 10:29:53 Versed I.V. 2 mg Alcon Alcon for sedation Lorigan Lorigan RN RN 10:29:59 Fentanyl I.V. 100 mcg Alcon Alcon for sedation Aida Parra RN RN 10:31:38 Versed I.V. 2 mg Alcon Alcon for sedation Aida Parra RN RN 10:32:41 Radial Cocktail I.A. 1 Alcon Lin for (Verapomil syringe Aida Tran MD vasodilation 2mg/Nitro RN 400mcg/Heparin 1500units) Procedure Log Time Note 9:07:26 Diagnostic Cath Status : Elective 9:07:59 Kelly Marie RT(R) sent for patient. Start room use. 9:08:00 Time tracking: Regular hours (M-F 7:00 - 5:00) 9:08:04 Plan of Care:Hemodynamics will remain stable., Cardiac rhythm will remain stable., Comfort level will be maintained., Respiratory function will remain adequate., Patient/ family verbilizes understanding of procedure., Procedure tolerated without complication., Recovers from procedure without complications.. 9:24:00 Patient received from PCU to CCL 2 Alert and oriented. Tansferred to table in Supine position. 9:24:01 Warm blankets applied, and regine hugger turned on for patient comfort. 9:24:01 Correct patient and procedure confirmed by team. 9:24:03 Signed procedure consent form obtained from patient. 9:24:09 ECG and BP/O2 sat monitors applied to patient. 9:24:10 Full Disclosure recording started 9:24:40 H&P Date Dictated: 12/01/2018 Within 30 days and on chart.. 9:24:41 Pre-procedure instructions explained to patient. 9:24:41 Pre-op teaching completed and patient verbalized understanding. 9:24:46 Family in patients room. 9:24:48 Patient NPO since Midnight. 9:25:04 Is the patient allergic to Iodine/contrast media? No. 9:26:01 Is patient on blood thinner?Yes 9:26:06 ACC The patient was administered the following blood thiners within the last 24 hours: Coumadin 9:29:15 PATIENT'S LAST DOSE OF COUMADIN 12/02/18. INR 2.28 THIS AM AFTER 5UNITS FFP. DR. TRAN AWARE. 9:29:17 If diabetic: On Metformin? Yes 9:29:22 If on Metformin: Last Dose? 12/02/2018 9:29:26 Previous problem with sedation/anesthesia? No ? 9:29:27 Snore? Yes 9:29:28 Sleep apnea? Yes 9:29:28 Deviated septum? No 9:29:29 Opens mouth fully? Yes 9:29:30 Sticks out tongue? Yes 9:29:33 Airway obstruction? Yes COPD 9:29:47 Dentures? No ? 9:29:51 Pre procedure: right dorsailis pedis pulse 2+ Normal; easily identifiable; not easily obliterated 9:29:55 Modified Hussein's test Ulnar < 7 seconds 9:29:59 Patient pain scale 0/10 ?. 9:30:32 IV patent on arrival in right forearm with 0.9% NaCl at [facility]. 9:31:00 Lab results completed and on chart. 9:31:03 Right Radial & Right Groin area was prepped with chlora-prep and draped in sterile fashion 9:31:04 Alarms reviewed by R. N. 9:31:05 Sharps counted by scrub and verified by R.N. 9:32:14 0.9% NaCl 100 ml/hr I.V. was administered by Alcon Parra RN; Per physician; 9:32:15 Vital chart was started 9:32:30 Oxygen 2 l/min etCO2 Nasal cannula was administered by Alcon Parra RN; for low 02 sats; 9:32:45 Heparin Flush Bag (1000units/500ml NS) 2 bags added to field was administered by Alcon Parra RN; used for procedure; 9:32:56 Lidocaine 2% 20ml vial added to field was administered by Alcon Parra RN; for local anesthetic; 9:35:12 Radial Cocktail (Verapomil 2mg/Nitro 400mcg/Heparin 1500units) 1 syringe added to field was administered by Alcon Parra RN; used for procedure; 9:36:33 Use device set Radial Dx or PCI 9:36:35 Medline Cath Pack ([id number]) opened to sterile field. 9:36:36 ACIST Syringe (54185) opened to sterile field. 9:36:37 Bag Decanter () opened to sterile field. 9:36:37 DIAGNOSTIC WIRE .035 260cm J wire (320397) opened to sterile field. 9:36:38 ACIST Hand Control (11291) opened to sterile field. 9:36:39 ACIST Manifold (91798) opened to sterile field. 9:36:40 Tegaderm 4 x 4 (1626W) opened to sterile field. 9:36:41 MBrace Wrist Support ([id number]) opened to sterile field. 9:36:43 SHEATH 6FR Slender (57-0758) opened to sterile field. 9:39:47 Baseline sample Acquired. 9:44:51 Patient Weight : 235.9 lbs 9:45:50 Lab Result : Hemoglobin 12.4 g/dl 9:45:50 Lab Result : Creatinine 0.8 mg/dl 9:45:50 Lab Result : BUN 11 mg/dl 9:45:50 Lab Result : INR 2.28 units 9:45:50 Lab Result : PT 24.4 sec 9:45:50 Lab Result : Platelets 260 10^3/l 9:46:01 Rhythm: sinus rhythm 10:06:32 Pre procedure: right dorsailis pedis pulse 2+ Normal; easily identifiable; not easily obliterated 10:06:35 Pre procedure: left dorsailis pedis pulse 2+ Normal; easily identifiable; not easily obliterated 10:16:08 Physician paged 10:27:52 Physician arrived 10:27:54 --------ALL STOP TIME OUT------ 10:27:58 Final Timeout: patient, procedure, and site verified with staff and physician. All members of the team are in agreement. 10:28:03 Right Radial & Right Groin site verified by team. 10:28:08 Fire Safety Assessment: A--An alcohol-based skin anteseptic being used preoperatively., C--Open oxygen or nitrous oxide is being used., D--An ESU, laser, or fiber-optic light is being used. 10:28:13 Physical assessment completed. ASA score P 2 - A patient with mild systemic disease as per Riley Tran MD. 10:28:16 Sedation plan: IV Moderate Sedation Medication:Versed, Fentanyl 10:28:26 Versed 2 mg I.V. was administered by Alcon Parra RN; for sedation; 10:28:34 Fentanyl 100 mcg I.V. was administered by Alcon Lorigan RN; for sedation; 10:29:53 Versed 2 mg I.V. was administered by Alcon Parra RN; for sedation; 10::59 Fentanyl 100 mcg I.V. was administered by Alcon Parra RN; for sedation; 10:30:21 Zero performed for pressure channel P1 10:30:31 Procedure started. 10:30:42 Local anesthetic to right radial artery with Lidocaine 2% by Riley Tran MD.INITIAL ACCESS ONLY 10:31:38 Versed 2 mg I.V. was administered by Alcon Parra RN; for sedation; 10:31:44 A 6 Fr Short sheath was inserted into the Right Radial artery 10::59 A DIAGNOSTIC Mobile 110cm 5 Fr catheter ([id number]) was advanced over the wire and used for Procedure. 10:32:41 Radial Cocktail (Verapomil 2mg/Nitro 400mcg/Heparin 1500units) 1 syringe I.A. was administered by Riley Tran MD; for vasodilation; 10:32:50 LV angiography performed. 10:33:38 EF : 55 % 10:33:55 LCA angiography performed. 10:34:57 RCA angiography performed. 10:35:26 Catheter removed. 10:35:33 TR BAND Standard ([id number]) opened to sterile field. 10:36:15 Sheath removed intact; hemostasis achieved with Mechanical Compression to the Right Radial artery. 10:36:21 Procedure ended.(Physican Out) 10:36:32 Fluoroscopy time 01.30 minutes. 10:36:36 Fluoroscopy dose: 534 mGy 10:36:36 Flurop Dose total: 534 10:36:52 Contrast amount:Isovue 300 48ml. 10:36:53 Sharps counted by scrub and verified by R.N. 10:36:58 TR band inflated with 13cc of air. 10:37:00 Insertion/operative site no bleeding no hematoma. 10:37:15 Post-procedure physical assessment completed. ASA score P 2 - A patient with mild systemic disease as per Riley Tran MD. 10:37:19 Post procedure rhythm: unchanged. 10:37:23 Estimated blood loss: 10 ml 10:37:24 Post procedure instruction explained to patient.Patient verbalizes understanding. 10:37:36 Procedure and supply charges have been captured, reviewed, submitted and are correct. 10:37:55 Procedure Complication : No complications 10:37:58 Vital chart was stopped 10:37:59 See physician's report for complete and final results. 10:38:15 Report given to Med II. 10:38:19 Patient transfered to Med II with Stretcher. 10:38:22 Procedure ended. 10:38:22 Full Disclosure recording stopped 10:38:28 End room use (Document Last) Device Usage Item Name Manufacture Quantity Catalog Hospital Part Current Minimal Lot# / Number Charge Number Stock Stock Serial# Code Medline Medline 1 [id number] 232669 29650 848147 5 Cath Pack ([id number]) ACIST Acist 1 95640 762329 682389 358393 20 Syringe Medical (37696) Systems Inc Bag Microtek 1 2001S 292959 28497 419237 5 Decanter Medical Inc. (2001S) DIAGNOSTIC St Abdiel 1 742781 425148 869177 873490 30 WIRE .035 260cm J wire (171531) ACIST Hand Acist 1 72164 098902 414837 700832 5 Control Medical (88001) Systems Inc ACIST Acist 1 67543 465658 311207 312831 5 Manifold Medical (15525) Systems Inc Tegaderm 4 3M 1 1626W 395279 823489 282912 5 x 4 (1626W) MBrace Advanced 1 140-0250-00 687225 75733 776648 5 Wrist Vascular Support Dynamics ([id number]) SHEATH 6FR Terumo 1 [id number] 184436 976307 717627 5 Slender (80-1060) DIAGNOSTIC Terumo 1 40-6283 655046 614981 886201 5 Mobile 110cm 5 Fr catheter (924638) TR BAND Terumo 1 [id number] 531153 361828 347355 40 Standard ([id number]) Signature Audit [place] Stage Time Signature Unsigned Intra-Procedure 12/03/2018 Kym Schreiber 10:43:29 AM RT(R) Signatures Monitor : Otoniel Moreno RT Signature : Date : Time : Monitor : Kym Schreiber Signature : RT Date : Time : [address] [place] [address]
--- NOTE | 2018-11-30 17:58 | NUR ---
RECEIVED VIA STRETCHER TO ROOM. ON 2L PER NC. PATIENT HAS A "HEART MONITOR" ON THAT HE STATES FROM A CARIOLOGIS FROM [place]. RIGHT FA PIV SEEN SALINE LOCK. WILL ADMIT
[2018-11-30 18:04] VITALS: BP 142/61; BMI 32.8
[2018-11-30] MEDS ORDERED: XANAX2 MG PO (18:25)
[2018-11-30] MEDS ORDERED: COREG 3.1253.125 MG PO (18:27)
[2018-11-30] MEDS ORDERED: COLACE100 MG (18:28)
[2018-11-30] MEDS ORDERED: ISOSORBIDE MONO60 M1 PO (18:34)
[2018-11-30] MEDS ORDERED: THEOCHRON200 MG PO (18:36)
[2018-11-30] MEDS ORDERED: HYDRALAZINE HCL50 MG PO ×2 (18:37→18:42)
[2018-11-30] MEDS ORDERED: OXYBUTYNIN CHLOR5 M1 PO (18:37)
[2018-11-30] MEDS ORDERED: LIPITOR80 MG PO (18:38)
[2018-11-30] MEDS ORDERED: KLOR-CON M2020 MEQ PO (18:38)
[2018-11-30] MEDS ORDERED: BAYER CHEWABLE81 MG PO (18:38)
[2018-11-30] MEDS ORDERED: BUMETANIDE0.5 MG PO (18:41)
[2018-11-30] MEDS ORDERED: ZESTRIL10 MG PO (18:42)
[2018-11-30] MEDS ORDERED: GLUCOPHAGE500 MG PO (18:43)
[2018-11-30] MEDS ORDERED: NITROSTAT0.4 MG SL (18:43)
[2018-11-30] MEDS ORDERED: ULTRAM50 MG PO (18:44)
[2018-11-30] MEDS ORDERED: ZOFRAN4 MG PO (18:44)
[2018-11-30] MEDS ORDERED: COUMADIN4 MG PO (18:45)
[2018-11-30] MEDS ORDERED: TRAMADOL HCL E100 M1 PO (18:45)
[2018-11-30] MEDS ORDERED: COMBIVENT RESPIM4 GM INH (20:08)
[2018-11-30 20:10] VITALS: BP 136/73
[2018-11-30] MEDS ORDERED: IPRAT-ALBUT 0.5-3 ML UPD (20:10)
--- NOTE | 2018-11-30 22:11 | NUR ---
INITIAL ROUNDS COMPLETED AT 0 HRS. PT ASKING FOR HIS PM TRAZADONE, XANAX AND ULTRAM. ASSESSMENT COMPLETED AT [address] PER CM HR 133. O2 2LNC. LUNGS DIMINISHED IN BASES BILAT. EDWARDS. IV TO RFA SL. ALERT AND ORIENTED TO PERSON, PLACE AND TIME. FAMILY AT BEDSIDE. ULTRAM 50MG PO GIVEN AT 2056 HRS FOR C/O CHRONIC CHEST PAIN 06/17. PM MEDS GIVEN AT 2149 HRS. PT STATES HE TAKES HIS TRAZADONE AND XANAX TOGETHER AT HS AND HAS DONE SO FOR A LONG TIME. PT CURRENTLY WATCHING TV. WILL CONTINUE TO MONITOR. SR UP X2, CALL LIGHT WITHIN REACH.
[2018-11-30 23:55] VITALS: BP 98/62
--- NOTE | 2018-12-01 00:11 | NUR ---
PT RESTING WITH EYES CLOSED. ON R SIDE. RESP 15 DEEP EVEN AND REGULAR. S RUP X2, CALL LIGHT WITHIN REACH.
--- NOTE | 2018-12-01 02:30 | NUR ---
PT RESTING WITH EYES CLOSED. RESP EVEN AND REGULAR. SR UP X2, CALL LIGHT WITHIN REACH.
[2018-12-01 03:55] VITALS: BP 91/54
--- NOTE | 2018-12-01 04:58 | NUR ---
PT RESTING WITH EYES CLOSED. RESP EVEN AND REGULAR. SR UP X2, CALL LIGHT WITHIN REACH.
--- NOTE | 2018-12-01 05:42 | NUR ---
VSS THROUGHOUT NIGHT. SR PER CM. PT RESTED WELL DURING SHIFT. PT NOW HAS C/O SOB. NO DISTRESS NOTED. REQUESTS UD. RT NOTIFIED.
--- NOTE | 2018-12-01 07:14 | NUR ---
ROUNDING DONE WITH PATIENT LAYING ON RIGHT SIDE, DENIES NEEDS AT THIS TIME. ON HEART MONITOR SHOWING SR, HR 68. ON 2L PER NC. RIGHT FA PIV SEEN WITH SALINE LOCK. AMINAH MAT ALARM IS ON AND IN USE. DENIES NEEDS AT THIS TIME.
[2018-12-01 08:50] VITALS: BP 118/65
--- NOTE | 2018-12-01 09:28 | NUR ---
PATIENT HAS AN INFUSAPORT SEEN TO LEFT UPPER CHEST AREA THAT IS NOT ACCESSED. PATIENT STATES THAT IT HAS NOT BEEN USED FOR APPROX. 7 MONTHS AND THAT IT "FLIPPED OVER".
--- NOTE | 2018-12-01 09:30 | NUR ---
BILATERAL SCD'S PLACED ON PATIENT AND TURNED ON.
[2018-12-01 10:20] LABS: INR 3.45 (0.85-1.17)
[2018-12-01 12:21] VITALS: BP 122/68
--- NOTE | 2018-12-01 13:24 | NUR ---
DENIES NEEDS AT THIS TIME. EMPTIED URINAL.
[2018-12-01 15:48] VITALS: BP 113/63
[2018-12-01 19:55] VITALS: BP 132/77
[2018-12-01 23:50] VITALS: BP 124/75
--- NOTE | 2018-12-02 00:16 | NUR ---
INITIAL ROUNDS COMPLETED AT 1909 HRS. NO DISTRESS NOTED. ASSESSMENT COMPLETED AT 1954 HRS. VSS. SR PER CM HR 73. O2 3LNC. LUNGS DIMINISHED IN BASES BILAT. GRACE. IV TO RFA SL. ALERT AND ORIENTED TO PERSON, PLACE AND TIME. GRACE. [facility] EXPLAINED TO PT. PM MEDS GIVEN. PT CURRENTLY WATCHING TV; NO DISTRESS NOTED. CALL LIGHT WITHIN REACH AND BED ALARM ON.
--- NOTE | 2018-12-02 02:50 | NUR ---
PT RESTING WITH EYES CLOSED. RESP EVEN AND REGULAR. SR UP X2, CALL LIGHT WITHIN REACH.
[2018-12-02 03:43] VITALS: BP 122/74
--- NOTE | 2018-12-02 05:08 | NUR ---
PT OFF MONITOR AT 0435. WENT IN PT'S ROOM AND FOUND PT LYING ON TOP OF HIS BLANKETS IN THE SUPINE POSITION. PT STATED HE ROLLED OUT OF BED. PT ALSO STATED HE HIT HIS HEAD ON THE FLOOR. DENIED ANY LOC. NO SWELLING NOTED TO BACK OF HEAD. NO INJURIES NOTED. ASSISTED PT WITH STAFF X3 TO BED. MAE. BERKWOITZ. ALERT AND ORIENTED TO PERSON, PLACE AND TIME. WEEK BU T EQUAL HAND AND FOOT STRENGHT. VS BP 122/74. HR 75 SR. TEMP 97.4, RESP 18 WITH O2 SAT 98% ON 3LNC. SR UP X2, CALL LIGHT WITHIN REACH AND BED ALARM ON.
--- NOTE | 2018-12-02 05:19 | NUR ---
DR JACKSON GALARZA.
--- NOTE | 2018-12-02 05:53 | NUR ---
DR PAZ RETURNS PAGE. INFORMED PT ROLLED OUT OF BED AND STATED HIT HIS HEAD. INFORMED OF CURRENT VS, SR PER CM, NO EURO DEIFICITS, NO INJURIES NOTED AND INR YESTERDAY WAS 3.45. NEW ORDERS RECEIVED AND NOTED.
[2018-12-02 05:54] LABS: BASOPHILS 0.2 % (0-2); EOSINOPHILS 3.9 % (0-7); HEMATOCRIT 37.6 % (42.0-54.0); HEMOGLOBIN 12.4 g/dL (13.5-17.5); IMMATURE GRANULOCYTES 0.1 % (0-5); LYMPHOCYTES 25.6 % (15-50); MCH 26.3 pg (26.0-34.0); MCV 79.7 fL (80.0-100.0); MEAN PLATELET VOLUME 9.7 fL (7.4-10.4); MONOCYTES 7.6 % (2-11); NEUTROPHILS 62.6 % (40-80); PLATELET COUNT 260 10x3/uL (130-400); RBC 4.72 10x6/uL (4.20-6.10); RDW 15.1 % (11.5-14.5); WBC 9.7 10x3/uL (4.8-10.8)
[2018-12-02 06:01] LABS: INR 4.83 (0.85-1.17); PROTIME 44.3 SECONDS (11.6-15.0)
[2018-12-02 06:02] LABS: CALC OSMOLALITY 278 mosm/kg (275-300); CALCIUM 9.3 mg/dL (8.5-10.1); CARBON DIOXIDE 25.1 mmol/L (21.0-32.0); CHLORIDE - SERUM 101 mmol/L (98-107); CREATININE - SERUM 0.8 mg/dL (0.6-1.3); GLUCOSE 136 mg/dL (74-106); POTASSIUM - SERUM 3.6 mmol/L (3.5-5.1); SODIUM 139 mmol/L (136-145); UREA NITROGEN 11 mg/dL (7-18); eGFR NON AFRICAN AMERICAN > 90 mL/min (90-120)
[2018-12-02 06:06] LABS: TROPONIN-I < 0.017 ng/mL (0.000-0.060)
--- NOTE | 2018-12-02 06:34 | NUR ---
PT STATED NOT TO CALL FAMILY ABOUT HIM ROLLING OUT OF BED.
[2018-12-02 08:21] VITALS: BP 121/54
[2018-12-02 08:47] LABS: INR 3.47 (0.85-1.17); PROTIME 34.1 SECONDS (11.6-15.0)
--- NOTE | 2018-12-02 08:50 | NUR ---
1ST UNIT FFP STARTED. VS WNL. LINE IS PATENT. WILL MONITOR.
[2018-12-02 11:09] LABS: INR 2.47 (0.85-1.17)
--- NOTE | 2018-12-02 11:16 | NUR ---
PT INR CALLED TO DR. PAZ.
[2018-12-02 12:40] VITALS: Ht 180.3 cm; Wt 106.8 kg
--- NOTE | 2018-12-02 13:21 | NUR ---
3RD UNIT FFP STARTED. VS WNL. LINE IS PATENT. WILL MONITOR.
--- NOTE | 2018-12-02 14:16 | NUR ---
4TH UNIT FFP INFUSING WITHOUT ADVERSE REACTION NOTED.
--- NOTE | 2018-12-02 15:54 | NUR ---
FFP COMPLETED WITHOUT ADVERSE REACTIONS NOTED.
--- NOTE | 2018-12-02 17:09 | MORECARE ---
CASE MANAGEMENT DISCHARGE SUMMARY PATIENT: DARA TOMPKINS UNIT: [id number] ADM DATE: 11/30/18 AGE: 48 : 70 SEX: M ROOM/BED: D.2115 AUTHOR: ANOOP TORIBIO PHYSICIAN: REFERRING PHYSICIAN: ISIDRA PAZ MD DATE OF SERVICE: 12/02/18 Discharge Plan Patient Name: DARA [facility]PKINS [facility] [facility] 1970 Planned Disposition: Home Anticipated Discharge Date: 12/03/18 Discharge Date: Expected LOS: 3 Initial Reviewer: [email or web address] Initial Review Date: 11/30/2018 Generated: 12/02/18 6:09 pm DCPIA - Discharge Planning Initial Assessment Updated by [email or web address]: Lavell Eastman on 12/02/18 5:07 pm * Is the patient Alert and Oriented? Yes * How many steps to enter\exit or inside your home? * PCP DR. DERICK VELASCO, [place] * Pharmacy [facility], [place] * Preadmission Environment Home with Family * ADLs Independent * Equipment Cane Oxygen * Other Equipment HOME OXYGEN NEEDED [employer] - OXYGEN PROVIDER * List name and contact numbers for known caregivers / representatives who currently or will assist patient after discharge: FAITH RANKIN, GIRLFRIEND, * Verbal permission to speak to the caregivers and representatives has been obtained from the patient. Yes * Community resources currently utilized Home Health Private Duty Care * Please name any agencies selected above. [facility], [facility], M-F, 4-5 HOURS DAILY * Additional services required to return to the preadmission environment? No * Can the patient safely return to the preadmission environment? Yes * Has this patient been hospitalized within the prior 30 days at any hospital? No Patient Name: DARA TOMPKINS Page 69590 at 170 All edits/amendments must be made on the electronic document DICTATION DATE: 12/02/181708 BUFFER NICKEL: KEYANNA 12/02/181708 RPT#: [id number] DC DATE: STATUS: ADM IN [facility] [address] [place] [place] [id number] END OF REPORT
--- NOTE | 2018-12-02 17:16 | MORECARE ---
CASE MANAGEMENT DISCHARGE SUMMARY PATIENT: DARA TOMPKINS UNIT: [id number] ADM DATE: 11/30/18 AGE: 48 : 70 SEX: M ROOM/BED: D.8743 AUTHOR: CATARINO,DOC PHYSICIAN: REFERRING PHYSICIAN: ISIDRA PAZ MD DATE OF SERVICE: 12/02/18 Discharge Plan Patient Name: DARA TOMPKINS Facility: [facility]:[place] : 1970 Planned Disposition: Home Anticipated Discharge Date: 12/03/18 Discharge Date: Expected LOS: 3 Initial Reviewer: [email or web address] Initial Review Date: 11/30/2018 Generated: 12/02/18 6:16 pm Comments DCP- Discharge Planning Updated by [email or web address]: Lavell Eastman on 12/02/18 4:[address] Patient Name: DARA TOMPKINS Admission Status: Elective Accout number: [id number] Admission Date: 11-30-2018 : 1970 Admission Diagnosis: Attending: GARUAV PAZ Current LOS: 2 Anticipated DC Date: 12-03-2018 Planned Disposition: Home WITH HOME HEALTH Primary Insurance: MEDICARE A & B PLANNED EXTERNAL PROVIDER: [facility] Discharge Planning Comments: CM RECEIVED REQUEST FROM PT TO SEE HIM IN ROOM. CM MET WITH PT IN ROOM TO DISCUSS DISCHARGE PLANNING AND NEEDS. PT REPORTS LIVING AT HOME INDEPENDENTLY WITH HIS GIRLFRIEND. PT HAS CANE AND HOME OXYGEN THAT HE USES NEEDED. PT'S MEDICAL EQUIPMENT PROVIDER IS [employer]. PT HAS PERSONAL CARE WITH [facility] 24 HOURS PER WEEK; PT HAS [facility] FOR OBSERVIATION AND ASSESSMENT, PT/INR MONITORING. CM DISCUSSED AVAILABILITY OF HOME HEALTH, REHAB SERVICES AND MEDICAL EQUIPMENT. PT DENIES DISCHARGE NEEDS, AND NEEDS CM TO CALL [place] [employer] FOR DISCHARGE HOME. CM TO ATTEMPT TO ARRANGE MEDICAID BUS IOS DEVELOPER FOR DISCHARGE HOME TOMORROW. PT LIVES AT [address] [place] [address], [place] [address]. PT'S CELL NUMBER IS [phone], MEDICAID NUMBER [id number]. Welt Cutter: Lavell Eastman DCPIA - Discharge Planning Initial Assessment Updated by [email or web address]: Lavell Eastman on 12/02/18 5:07 pm * Is the patient Alert and Oriented? Yes * How many steps to enter\exit or inside your home? * PCP DR. DERICK VELASCO, [place] * Pharmacy [facility], [place] * Preadmission Environment Home with Family * ADLs Independent * Equipment Cane Oxygen * Other Equipment HOME OXYGEN NEEDED [facility] - OXYGEN PROVIDER * List name and contact numbers for known caregivers / representatives who currently or will assist patient after discharge: FAITH RANKIN, GIRLFRIEND, * Verbal permission to speak to the caregivers and representatives has been obtained from the patient. Yes * Community resources currently utilized Home Health Private Duty Care * Please name any agencies selected above. [facility], [facility], M-F, 4-5 HOURS DAILY * Additional services required to return to the preadmission environment? No * Can the patient safely return to the preadmission environment? Yes * Has this patient been hospitalized within the prior 30 days at any hospital? No Last DP export: 12/02/18 4:09 p Patient Name: DARA TOMPKINS Page 70102 at 1716 All edits/amendments must be made on the electronic document DICTATION DATE: 12/02/181715 WATCHMAKER APPRENTICE: KEYANNA 12/02/181715 RPT#: [id number] DC DATE: STATUS: ADM IN [facility] [address] [place] [address] END OF REPORT
--- NOTE | 2018-12-02 20:51 | NUR ---
HS MEDS GIVEN WITH FRESH ICE WATER. ULTRAM 1 TAB GIVEN FOR C/O GENERALIZED PAIN. NO OTHER NEEDS EXPRESSED AT THIS TIME. BED LOW, CL IN REACH.
[2018-12-02 21:43] VITALS: BP 127/64
[2018-12-03 05:57] VITALS: BP 134/68
[2018-12-03 08:10] LABS: INR 2.28 (0.85-1.17); PROTIME 24.4 SECONDS (11.6-15.0)
[2018-12-03 08:19] VITALS: BP 120/74
--- NOTE | 2018-12-03 09:15 | NUR ---
PRE-OPS GIVEN. TO STRUCTURAL MILL SUPERVISOR BY BED.
--- NOTE | 2018-12-03 10:12 | MORECARE ---
CASE MANAGEMENT DISCHARGE SUMMARY PATIENT: DARA TOMPKINS UNIT: [id number] ADM DATE: 11/30/18 AGE: 48 : [birth year] SEX: M ROOM/BED: D.6605 AUTHOR: CATARINO,DOC PHYSICIAN: REFERRING PHYSICIAN: ISIDRA PZA MD DATE OF SERVICE: 12/03/18 Discharge Plan Patient Name: DARA TOMPKINS Facility: [facility]:[place] : 1970 Planned Disposition: Home Anticipated Discharge Date: 12/03/18 Discharge Date: Expected LOS: 3 Initial Reviewer: [id number] Initial Review Date: 11/30/2018 Generated: 12/03/18 11:12 am Comments DCP- Discharge Planning Updated by [id number]: Lavell Eastman on 12/03/18 9:[address] Patient Name: DARA TOMPKINS Encounter No: [id number] : 1970 Primary Insurance: MEDICARE A & B Anticipated DC Date: 12-03-2018 Planned Disposition: Home DCP follow-up note: CM CALLED [facility] [employer], MEDICAID TRANSPORTATION, , SPOKE TO SHARON WHO INFORMED CM THAT THE LATEST PT CAN GEOLOGY PROFESSOR TODAY IS NOON DUE TO DISTANCE OF TRANSPORT. CM SPOKE TO BEDSIDE NURSE WHO INFORMED CM THAT PT WILL NOT BE READY FOR GEOLOGY PROFESSOR AT NOON TODAY AFTER CATH PROCEDURE. CM SCHEDULED FOR 8AM GEOLOGY PROFESSOR 12-04, MEDICAID TRANSPORT WILL GEOLOGY PROFESSOR BETWEEN 4:30AM AND 8:00AM 12-04-18, THE EARLIEST AVAILABLE GEOLOGY PROFESSOR. PT NOTIFIED AND REPORTS THAT TO BE ACCEPTABLE HE HAS NO FUNDS TO PAY FOR TRANSPORT AND HAS NO ONE TO PICK HIM UP TO GET HIM HOME. CM CALLED [employer], , RECEIVED QUOTE OF $245. CM LEFT MESSAGE FOR CM SUPERVISING LIBRARIAN PASCUAL TO UPDATE ON DISCHARGE TRANSPORT SITUATION. PATIENT IS SCHEDULED FOR MEDICAID TRANSPORT GEOLOGY PROFESSOR BETWEEN 4:30AM AND 8:00AM, 12-04-18. ERIC Gleason DCP- Discharge Planning Updated by [email or web address]: Lavell Eastman on 12/02/18 4:[address] Patient Name: DARA TOMPKINS Admission Status: Elective Accout number: [id number] Admission Date: 11-30-2018 : 1970 Admission Diagnosis: Attending: GAURAV PAZ Current LOS: 2 Anticipated DC Date: 12-03-2018 Planned Disposition: Home WITH HOME HEALTH Primary Insurance: MEDICARE A & B PLANNED EXTERNAL PROVIDER: [facility] Discharge Planning Comments: CM RECEIVED REQUEST FROM PT TO SEE HIM IN ROOM. CM MET WITH PT IN ROOM TO DISCUSS DISCHARGE PLANNING AND NEEDS. PT REPORTS LIVING AT HOME INDEPENDENTLY WITH HIS GIRLFRIEND. PT HAS CANE AND HOME OXYGEN THAT HE USES NEEDED. PT'S MEDICAL EQUIPMENT PROVIDER IS [employer]. PT HAS PERSONAL CARE WITH [employer] [facility] 24 HOURS PER WEEK; PT HAS [facility] FOR OBSERVIATION AND ASSESSMENT, PT/INR MONITORING. CM DISCUSSED AVAILABILITY OF HOME HEALTH, REHAB SERVICES AND MEDICAL EQUIPMENT. PT DENIES DISCHARGE NEEDS, AND NEEDS CM TO CALL [place] [facility] TRANSPORT FOR DISCHARGE HOME. CM TO ATTEMPT TO ARRANGE MEDICAID BUS GEOLOGY PROFESSOR FOR DISCHARGE HOME TOMORROW. PT LIVES AT [address] [place] [address]. PT'S CELL NUMBER IS [phone], MEDICAID NUMBER [id number]. Orthopedic Physician: Lavell Eastman DCPIA - Discharge Planning Initial Assessment Updated by [id number]: Lavell Eastman on 12/02/18 5:07 pm * Is the patient Alert and Oriented? Yes * How many steps to enter\exit or inside your home? * PCP DR. DERICK VELASCO, [place] * Pharmacy [facility], [place] * Preadmission Environment Home with Family * ADLs Independent * Equipment Cane Oxygen * Other Equipment HOME OXYGEN NEEDED [employer] - OXYGEN PROVIDER * List name and contact numbers for known caregivers / representatives who currently or will assist patient after discharge: FAITH RANKIN, GIRLFRIEND, * Verbal permission to speak to the caregivers and representatives has been obtained from the patient. Yes * Community resources currently utilized Home Health Private Duty Care * Please name any agencies selected above. [facility], [facility], M-F, 4-5 HOURS DAILY * Additional services required to return to the preadmission environment? No * Can the patient safely return to the preadmission environment? Yes * Has this patient been hospitalized within the prior 30 days at any hospital? No Last DP export: 12/02/18 4:16 p Patient Name: DARA TOMPKINS Page [id number] at 1012 All edits/amendments must be made on the electronic document DICTATION DATE: 12/03/18 1012 DIRECTOR OF RESEARCH: KEYANNA 12/03/18 1012 RPT#: [id number] DC DATE: STATUS: ADM IN [facility] [address] [place] [address] END OF REPORT
--- NOTE | 2018-12-03 11:01 | NUR ---
BACK FROM CDATH LAB. VS WNL. RIGHT WRISR STABLE WITH TR BAND INTACT. WILL MONITOR.
--- NOTE | 2018-12-03 11:18 | HP ---
PATIENT: DARA VENEGAS MEDICAL RECORD: [id number] ACCOUNT: [id number] LOCATION:[address] : [birth year] ADMISSION DATE: 11/30/18 PCP: ISIDRA PAZ MD HISTORY AND PHYSICAL EXAMINATION ADMITTING DIAGNOSES: 1. Angina. 2. Coronary artery disease. 3. Previous percutaneous transluminal coronary angioplasty stent. 4. Chronic obstructive pulmonary disease. 5. Smoking history. 6. Coumadin anticoagulation. 7. Hyperlipidemia. 8. Hypertension. HISTORY OF PRESENT ILLNESS: Mr. Venegas presents with increasing anginal symptomatology. He supposedly underwent cardiac catheterization at the [facility] and was told there was a lesion that could not be fixed. We have not seen him in a couple of years. Back when he lived here, we had to fixed multiple lesions of his right coronary and left system. When he left here, all the vessels were widely patent. PHYSICAL EXAMINATION: GENERAL APPEARANCE: Well-nourished, well-developed, appears stated age. Level of distress, comfortable. PSYCHIATRIC: Mental status, alert, normal affect. Orientation, oriented to time, place and person. EYES: Lids and conjunctiva, noninjected. No discharge, no pallor. ENT: Lips, teeth, gums, normal dentition. Oropharynx, no cyanosis, no pallor. NECK: Carotid arteries, bilateral normal upstroke, no bruits, no thrills. JUGULAR VEINS: No jugular venous pressure or distention. CERVICAL LYMPH NODES: Nontender, nonenlarged. THYROID: Not enlarged. Nontender. No nodules. LUNGS: Respiratory effort, unlabored. CHEST: Normal curvature. No thoracic deformity. No chest wall tenderness. Percussion, resonant. Auscultation, clear. No wheezes, no rales, no rhonchi. CARDIOVASCULAR: Precordial exam, nondisplaced. No heaves or pericardial thrills. Rate and rhythm, regular. Heart sounds, normal S1, normal S2. No S3, no gallop, no rub. Systolic murmur, not heard. Diastolic murmur, not heard. EXTREMITIES: No cyanosis, no edema. Peripheral pulses, full and equal in all extremities, except as noted. No bruits appreciated. ABDOMEN: Soft, nondistended. Normal aorta. No bruit. Nontender. No masses. Liver, nontender, no hepatomegaly. Spleen, nontender, no splenomegaly. MUSCULOSKELETAL: No joint tenderness. No joint swelling. No erythema. NEUROLOGICAL: Normal gait, normal strength, normal tone. SKIN: Warm and dry. OVERALL IMPRESSION: Anginal symptomatology. We will proceed with coronary angiography in the a.m. Further care depends upon findings of the angiography. TRANSINT:[id number] Voice Confirmation ID: [id number] DOCUMENT ID: [id number] HISTORY AND PHYSICAL [id number] DARA VENEGAS JEFFREY MD at 1118 CC: [id number] DICTATION DATE: 12/01/18923 BULLET SWAGING MACHINE OPERATOR: 12/01/18 1010 ADM IN [place] [id number] [place] [id number]
[2018-12-03] MEDS ORDERED: HYDROCODON-ACE1 EAC2 PO (11:51)
[2018-12-03 12:17] VITALS: BP 125/71
--- NOTE | 2018-12-03 14:21 | NUR ---
TR BAND DCD WITHOUT BLEEDING OR HEMATOMA NOTED.
--- NOTE | 2018-12-03 15:16 | NUR ---
02 SAT 97% ON RA.
[2018-12-03 16:26] VITALS: BP 138/70
[2018-12-04] VITALS: BP 152/80
--- NOTE | 2018-12-04 02:42 | NUR ---
AWAKE AND ALERT RESTING IN BED, REQUESTING PAIN MEDICATION WILL NOTIFY PRIMARY NURSE, CALL LIGHT IN REACH
[2018-12-04 04:00] VITALS: BP 101/55
--- NOTE | 2018-12-04 06:25 | NUR ---
IV CATH REMOVED, TIP INTACT. DC INSTRUCTIONS GONE OVER WITH PT AND PRESCRIPTIONS GIVEN. TELEMETRY RETURNED TO SUPERVISOR FELTING. WILL ESCORT PT DOWN TO BUS WHEN BUS ARRIVES.
--- NOTE | 2018-12-04 09:13 | MORECARE ---
CASE MANAGEMENT DISCHARGE SUMMARY PATIENT: DARA TOMPKINS UNIT: [id number] ADM DATE: 11/30/18 AGE: 48 : 70 SEX: M ROOM/BED: D.3055 AUTHOR: CATARINO,DOC PHYSICIAN: REFERRING PHYSICIAN: ISIDRA PAZ MD DATE OF SERVICE: 12/04/18 Discharge Plan Patient Name: DARA TOMPKINS Facility: [facility]:[place] : 1970 Planned Disposition: Home Anticipated Discharge Date: 12/04/18 Discharge Date: 12/04/2018 Expected LOS: 4 Initial Reviewer: [id number] Initial Review Date: 11/30/2018 Generated: 12/04/18 10:13 am Comments DCP- Discharge Planning Updated by [id number]: Lavell Eastman on 12/03/18 9:[address] Patient Name: DARA TOMPKINS Encounter No: [id number] : 1970 Primary Insurance: MEDICARE A & B Anticipated DC Date: 12-03-2018 Planned Disposition: Home DCP follow-up note: CM CALLED [facility], MEDICAID TRANSPORTATION, , SPOKE TO SHARON WHO INFORMED CM THAT THE LATEST PT CAN TRIMMER MACHINE OPERATOR TODAY IS NOON DUE TO DISTANCE OF TRANSPORT. CM SPOKE TO BEDSIDE NURSE WHO INFORMED CM THAT PT WILL NOT BE READY FOR TRIMMER MACHINE OPERATOR AT NOON TODAY AFTER CATH PROCEDURE. CM SCHEDULED FOR 8AM TRIMMER MACHINE OPERATOR 12-04, MEDICAID TRANSPORT WILL TRIMMER MACHINE OPERATOR BETWEEN 4:30AM AND 8:00AM 12-04-18, THE EARLIEST AVAILABLE TRIMMER MACHINE OPERATOR. PT NOTIFIED AND REPORTS THAT TO BE ACCEPTABLE HE HAS NO FUNDS TO PAY FOR TRANSPORT AND HAS NO ONE TO PICK HIM UP TO GET HIM HOME. CM CALLED [employer], , RECEIVED QUOTE OF $245. CM LEFT MESSAGE FOR CM OUTPATIENT PHLEBOTOMIST PASCUAL TO UPDATE ON DISCHARGE TRANSPORT SITUATION. PATIENT IS SCHEDULED FOR MEDICAID TRANSPORT TRIMMER MACHINE OPERATOR BETWEEN 4:30AM AND 8:00AM, 12-04-18. Lavell Eastman, CASE MANAGEMENT DCP- Discharge Planning Updated by [id number]: Lavell Eastman on 12/02/18 4:[address] Patient Name: DARA TOMPKINS Admission Status: Elective Accout number: [id number] Admission Date: 11-30-2018 : 1970 Admission Diagnosis: Attending: GAURAV PAZ Current LOS: 2 Anticipated DC Date: 12-03-2018 Planned Disposition: Home WITH HOME HEALTH Primary Insurance: MEDICARE A & B PLANNED EXTERNAL PROVIDER: [facility] Discharge Planning Comments: CM RECEIVED REQUEST FROM PT TO SEE HIM IN ROOM. CM MET WITH PT IN ROOM TO DISCUSS DISCHARGE PLANNING AND NEEDS. PT REPORTS LIVING AT HOME INDEPENDENTLY WITH HIS GIRLFRIEND. PT HAS CANE AND HOME OXYGEN THAT HE USES NEEDED. PT'S MEDICAL EQUIPMENT PROVIDER IS [employer]. PT HAS PERSONAL CARE WITH [facility] 24 HOURS PER WEEK; PT HAS [facility] FOR OBSERVIATION AND ASSESSMENT, PT/INR MONITORING. CM DISCUSSED AVAILABILITY OF HOME HEALTH, REHAB SERVICES AND MEDICAL EQUIPMENT. PT DENIES DISCHARGE NEEDS, AND NEEDS CM TO CALL [place] [facility] TRANSPORT FOR DISCHARGE HOME. CM TO ATTEMPT TO ARRANGE MEDICAID BUS TRIMMER MACHINE OPERATOR FOR DISCHARGE HOME TOMORROW. PT LIVES AT [address] [place] [address]. PT'S CELL NUMBER IS [phone], MEDICAID NUMBER [id number]. Correspondence Transcriber: Lavell Eastman DCPIA - Discharge Planning Initial Assessment Updated by [id number]: Lavell Eastman on 12/02/18 5:07 pm * Is the patient Alert and Oriented? Yes * How many steps to enter\exit or inside your home? * PCP DR. DERICK VELASCO, [place] * Pharmacy [facility], [place], [place] * Preadmission Environment Home with Family * ADLs Independent * Equipment Cane Oxygen * Other Equipment HOME OXYGEN NEEDED [employer] - OXYGEN PROVIDER * List name and contact numbers for known caregivers / representatives who currently or will assist patient after discharge: FAITH RANKIN, GIRLFRIEND, * Verbal permission to speak to the caregivers and representatives has been obtained from the patient. Yes * Community resources currently utilized Home Health Private Duty Care * Please name any agencies selected above. [facility], [facility], M-F, 4-5 HOURS DAILY * Additional services required to return to the preadmission environment? No * Can the patient safely return to the preadmission environment? Yes * Has this patient been hospitalized within the prior 30 days at any hospital? No Last DP export: 12/03/18 9:12 a Patient Name: DARA TOMPKINS Page [id number] at 0913 All edits/amendments must be made on the electronic document DICTATION DATE: 12/04/18912 FRAMER: KEYANNA 12/04/18912 RPT#: [id number] DC DATE:12/04/18 STATUS: DIS IN [facility] [address] [place] [address] END OF REPORT
--- NOTE | 2018-12-04 15:29 | DS ---
PATIENT:DARA VENEGAS :[birth year] MEDICAL RECORD: [id number] DISCHARGE SUMMARY ADMISSION DATE: 11/30/18 DISCHARGE DATE: 12/04/18 DISCHARGE DIAGNOSES: 1. Angina. 2. Coronary artery disease. 3. Hypertension. 4. Hyperlipidemia. 5. Chronic obstructive pulmonary disease. 6. History of deep vein thrombosis, on Coumadin. HOSPITAL COURSE: Mr. Venegas presents with anginal symptomatology; however, cardiac catheterization was unchanged with chronic total occlusion of his RCA, discharged home to continue his current medications including his Imdur, will follow up with [facility] within the next 6 months. TRANSINT:[id number] Voice Confirmation ID: [id number] DOCUMENT ID: [id number] ISIDRA PAZ MD at 1529 CC: [id number] DICTATION DATE: 12/03/18 1042 DIRECTOR OF CORPORATE SALES: 12/04/18 0241 DIS IN 12/04/18 [place] [address] [place] [address]
--- NOTE | 2018-12-04 15:29 | OP ---
PATIENT NAME: DARA TOMPKINS MEDICAL RECORD: [id number] :[birth year] LOCATION:D.M2 [address].2115 ADMISSION DATE:11/30/18 SURGEON: ISIDRA PAZ MD DATE OF OPERATION: 12/03/2018 PROCEDURES: 1. Left heart catheterization. 2. Selective coronary angiography. 3. Left ventriculogram. INDICATION: Angina and coronary artery disease. PROCEDURE IN DETAIL: After informed consent was obtained and after a detailed description of risks, benefits as well as alternative therapies, the patient elected to proceed with angiogram and heart catheterization. The right radial area was prepped and draped in normal sterile fashion. Right radial artery was cannulated via modified Seldinger technique with placement of 5-[place] Islander sheath. All catheters exchanged through this sheath. FINDINGS: Left ventriculogram was performed in standard 30-degree AQUINO view, reveals mild inferior hypokinesis, but ejection fraction preserved at 50%. SELECTIVE CORONARY ANGIOGRAPHY: 1. Left main has no significant angiographic disease. 2. Left anterior descending has mild irregularities, but no flow-limiting stenosis. 3. The left circumflex has mild irregularities, but no flow-limiting stenosis. 4. Right coronary artery is chronically totally occluded, unchanged from previous angiography. OVERALL IMPRESSION: Chronic total occlusion of the RCA with wide patency of the LAD and circumflex. Continue medical management of the coronary artery disease and cardiac risk factors. TRANSINT:[id number] Voice Confirmation ID: [id number] DOCUMENT ID: [id number] ISIDRA PAZ MD at 1529 CC: [id number] DICTATION DATE: 12/03/18 1041 TEXTILE ENGINEER: 12/03/18 1054 DIS IN 12/04/18 [facility] [address] [place] [address]
== END 2018-12-04 06:37 | disposition home or self-care (01) ==
LOC: D.M2 15:52 → OBSVTIME 18:00 → D.M2 12-04 06:37
PROVIDERS: ADMIT Internal Medicine Interventional Cardiology
DX: I25.119 Atherosclerotic heart disease of native coronary artery with unspecified angina pectoris (principal); J44.9 Chronic obstructive pulmonary disease, unspecified; Z87.891 Personal history of nicotine dependence; E78.5 Hyperlipidemia, unspecified; I10 Essential (primary) hypertension; I25.82 Chronic total occlusion of coronary artery; Z86.718 Personal history of other venous thrombosis and embolism; Z79.01 Long term (current) use of anticoagulants

== ENCOUNTER → 2019-07-29 09:17 | Outpatient (CLI) | payer MEDICARE ==
[2018-12-02 12:40] VITALS: BMI 32.9
[~2019-07-29 09:17] MED LIST changes: +BUMETANIDE0.5 MG PO; +COLACE100 MG; +COREG 3.1253.125 MG PO; +COREG12.5 MG PO; +COUMADIN3 MG PO; +COUMADIN4 MG PO; +GLUCOPHAGE500 MG PO; +HYDRALAZINE HCL50 MG PO; +HYDROCODON-ACE1 EA10 PO; +HYDROCODON-ACE1 EAC2 PO; +K-DUR20 MEQ PO; +KLOR-CON M2020 MEQ PO; +LIPITOR80 MG PO; +LISINOPRIL10 MG PO; +NITROSTAT0.4 MG SL; +OXYBUTYNIN CHLOR5 M1 PO; +SEROQUEL50 MG PO; +THEOCHRON200 MG PO; +TRAMADOL HCL E100 M1 PO; +ULTRAM50 MG PO; +ZESTRIL10 MG PO; +ZOFRAN4 MG PO
== END | disposition home or self-care (01) ==
LOC: D.RAD 09:17
PROVIDERS: ATTEND Legal Medicine
DX: R06.02 Shortness of breath (principal)

== ENCOUNTER 2019-08-09 19:25 | Inpatient (IN) | payer MEDICARE ==
[~2019-08-09] VITALS: Ht 180.3 cm; Wt 82.6 kg
--- NOTE | ~2019-08-09 | HEMODYNAMI ---
PATIENT:DARA TOMPKINS MEDICAL RECORD: [id number] : 70 LOCATION:[facility] D.[address] [facility]# [id number] ADMISSION DATE: 08/09/19 Generatedon:08/11/201913:24 Patient name: DARA TOMPKINS Patient #: [id number] SSN: [id number] : 1970 Date of study: 08/11/2019 Page: Of Hemodynamic Procedure Report Patient Data Patient Demographics Procedure consent was obtained First Name: DARA Gender: Male Last Name: LEDA : 1970 Middle Initial: H Age: 49 year(s) Patient #: [id number] Race: SSN: [id number] Additional ID: [id number] Contact details Address: [address] [place] [address] State: [place] City: [facility] Zip code: [address] Past Medical History History of disease Date Diagnosis Comments CAD Allergies: No known allergies Admission Admission Data Admission Date: 08/09/2019 Admission Time: 21:35 Arrival Date: 08/11/2019 Arrival Time: 0:00 Admit Source: Other Insurance Payor: Medicare, Room #: D.2115 Medicaid HIC #: [id number] Height (in.): 70.87 BSA: 2.02 (m2) Height (cm.): 180 BMI: 25.31 (kg/m2) Weight (lbs.): 180.78 Weight (kg.): 82 Lab Results Lab Result Date: 08/11/2019 Lab Result Time: 0:00 Biochemistry Name Units Result Min Max BUN mg/dl 6 -*(----)-- 7 18 Creatinine mg/dl 0.7 --(*---)-- 0.6 1.3 CBC Name Units Result Min Max Hemoglobin g/dl 9.9 *-(----)-- 13.5 17.5 Procedure Procedure Types Cath Procedure Diagnostic Procedure LHC LHC w/Coronaries Procedure Description Procedure Date Procedure Date: 08/11/2019 Procedure Start Time: 13:16 Procedure End Time: 13:23 Procedure Staff Name Function Riley Tran MD Performing Physician Kym Schreiber RT Monitor Georgette Still RN Nurse Kelly Marie RT Scrub Procedure Data Cath Procedure Fluoroscopy Diagnostic fluoroscopy Total fluoroscopy Time: 1 time: 1 min min Diagnostic fluoroscopy Total fluoroscopy dose: 475 dose: 475 mGy mGy Contrast Material Contrast Material Type Amount (ml) Isovue 300 54 Entry Location Entry Primary Successful Side Size Upsize Upsize Entry Closure Succes sful Closure Location (Fr) 1 (Fr) 2 (Fr) Remarks Device Remarks Femoral Right 5 Fr Exoseal artery Estimated blood loss: 10 ml Diagnostic catheters Device Type Used For End Catheter Placement MULTIPACK Pigtail 5 Fr Procedure catheter MULTIPACK JL 4.0 5Fr Procedure catheter MULTIPACK 3DRC 5Fr Procedure catheter Procedure Complications No complications Procedure Medications Medication Administration Route Dosage 0.9% NaCl I.V. 100 ml/hr Oxygen etCO2 Nasal cannula 2 l/min Lidocaine 2% added to field 20 Heparin Flush Bag added to field 2 bags (1000units/500ml NS) Versed I.V. 2 mg Fentanyl I.V. 50 mcg Fentanyl I.V. 50 mcg Hemodynamics Rest BSA: 2.02 (m2) HGB: 9.9 (g/dl) O2 Consumption: Estimated: 274.72 (ml/min) O2 Con sumption indexed: Estimated:136 (ml/min/m) Heart Rate: 0 (bpm) Snapshots Pre Cath Intra NCS Post Cath Vital Signs Time Heart Resp SPO2 etCO2 NIBP Rhythm Pain Sedation Rate (ipm) (%) (mmHg) (mmHg) Status Level (bpm) 13:04:49 64 18 98 28.5 97/55(82) NSR 0 (11) 10(A) , No pain 13:08:55 66 17 97 31.5 94/52(65) NSR 0 (11) 10(A) , No pain 13:13:01 67 20 98 28.5 91/45(75) NSR 0 (11) 10(A) , No pain 13:17:05 66 12 97 24.7 90/51(62) NSR 0 (11) 10(A) , No pain 13:21:06 63 16 97 31.5 96/53(68) NSR 0 (11) 10(A) , No pain Medications Time Medication Route Dose Verified Delivered Reason Notes Eff ectiveness by by 13:03:53 0.9% NaCl I.V. 100 Riley Georgette used for ml/hr Chelsea Still residential energy auditor 13:03:59 Oxygen etCO2 2 Riley Georgette used for Nasal l/min Chelsea Still procedure cannula RN 13:04:03 Lidocaine 2% added 20ml Riley Lin for local to vial Chelsea Tran MD anesthetic field 13:04:07 Heparin Flush added 2 Riley Riley used for Bag to bags Chelsea Tran MD procedure (1000units/500ml field NS) 13:10:30 Versed I.V. 2 mg Riley Georgette for Chelsea Still sedation RN 13:10:35 Fentanyl I.V. 50 Riley Georgette for mcg Chelsea Still sedation RN 13:16:35 Fentanyl I.V. 50 Riley Georgette for mcg Chelsea Still sedation software test analyst Log Time Note 12:41:27 Admit Source: Other 12:41:29 Arrival Date: 08/11/2019 12:00:00 AM 12:41:42 Patient Height : 70.87 inches 12:41:46 Patient Weight : 180.78 lbs 12:42:27 Insurance Payor : Medicare, Medicaid 12:43:12 Lab Result : Hemoglobin 9.9 g/dl 12:43:12 Lab Result : Creatinine 0.7 mg/dl 12:43:12 Lab Result : BUN 6 mg/dl 12:44:13 ACC Patient presents with Stable Angina CCS Anginal Class 2--Slight limitation of ordinary activity. 12:44:17 Procedure Status Urgent Heart Cath (IP). 12:44:21 Kym Schreiber RT(R) sent for patient. Start room use. 12:44:36 Time tracking: Regular hours (M-F 7:00 - 5:00) 12:44:41 Plan of Care:Hemodynamics will remain stable., Cardiac rhythm will remain stable., Comfort level will be maintained., Respiratory function will remain adequate., Patient/ family verbilizes understanding of procedure., Procedure tolerated without complication., Recovers from procedure without complications.. 12:47:43 Patient received from Med II to [facility] 2 Alert and oriented. Tansferred to table in Supine position. 12:49:57 H&P Date Dictated: 08/09/2019 Within 30 days and on chart., H&P Addendum completed by physician on day of procedure. (MUST COMPLETE FOR ALL OUTPATIENTS). 12:50:00 Pre-procedure instructions explained to patient. 12:50:03 Family in patients room. 12:50:06 Patient NPO since Midnight. 12:53:43 Is the patient allergic to Iodine/contrast media? No. 12:53:49 Was the patient premedicated? Yes 12:54:11 Risk of Mortality: .5 12:54:15 Risk of blood transfusion: 6.4 12:54:20 Risk of BRANDYN: 4.2 13:03:45 Vital chart was started 13:03:53 0.9% NaCl 100 ml/hr I.V. was administered by Georgette Still RN; used for procedure; Verbal order read back and verified. 13:03:59 Oxygen 2 l/min etCO2 Nasal cannula was administered by Georgette Still RN; used for procedure; Verbal order read back and verified. 13:04:03 Lidocaine 2% 20ml vial added to field was administered by Riley Tran MD; for local anesthetic; Verbal order read back and verified. 13:04:07 Heparin Flush Bag (1000units/500ml NS) 2 bags added to field was administered by Riley Tran MD; used for procedure; Verbal order read back and verified. 13:07:43 Signed procedure consent form obtained from patient. 13:07:44 Warm blankets applied, and regine hugger turned on for patient comfort. 13:07:45 Correct patient and procedure confirmed by team. 13:07:46 ECG and BP/O2 sat monitors applied to patient. 13:07:47 Baseline sample Acquired. 13:07:49 Baseline sample Acquired. 13:07:55 Baseline sample Acquired. 13:08:01 Baseline sample Acquired. 13:08:06 Full Disclosure recording started 13:08:11 Is patient on blood thinner?Yes 13:08:15 ACC The patient was administered the following blood thiners within the last 24 hours: ACCPlavix 13:08:25 Patient diabetic? No. 13:08:35 Snore? No 13:08:36 Sleep apnea? No 13:08:42 Airway obstruction? Yes copd 13:08:46 Dentures? No ? 13:08:53 Patient pain scale 1/10 ?. 13:08:59 IV patent on arrival in left forearm with 0.9% NaCl at O. 13:09:02 Lab results completed and on chart. 13:09:05 Alarms reviewed by RTammy N. 13:09:06 Sharps counted by scrub and verified by Maryjo. 13:09:06 Physician paged 13:09:07 Physician arrived 13::08 --------ALL STOP TIME OUT------ 13:09:08 Final Timeout: patient, procedure, and site verified with staff and physician. All members of the team are in agreement. 13:09:11 Right groin site verified by team. 13:09:15 Fire Safety Assessment: A--An alcohol-based skin anteseptic being used preoperatively., C--Open oxygen or nitrous oxide is being used., D--An ESU, laser, or fiber-optic light is being used. 13:09:27 Physical assessment completed. ASA score P 3 - A patient with severe systemic disease as per Riley Tran MD. 13:09:38 1) 90+ Normal kidney functon but urine findings or structural abnormalities or genetic trait point to kidney disease. 13:09:41 Maximum allowable contrast dose (3.7 X eGFR X 0.75)249 ml. 13:09:45 Sedation plan: IV Moderate Sedation Medication:Versed, Fentanyl 13:09:52 Use device set Femoral Dx 13:10:18 ACIST Syringe (24974) opened to sterile field. 13:10:19 Bag Decanter (2002S) opened to sterile field. 13:10:19 Medline Cath Pack ([id number]) opened to sterile field. 13:10:21 ACIST Hand Control (83603) opened to sterile field. 13:10:21 ACIST Manifold (89982) opened to sterile field. 13:10:22 DIAGNOSTIC Multipack 5Fr catheter set (VA6024) opened to sterile field. 13:10:26 SHEATH 5FR [place] (WWM081) opened to sterile field. 13:10:27 EMERALD Guide Wire (888-772) opened to sterile field. 13:10:30 Versed 2 mg I.V. was administered by Georgette Still RN; for sedation; Verbal order read back and verified. 13:10:30 Tegaderm 4 x 4 (1626W) opened to sterile field. 13:10:35 Fentanyl 50 mcg I.V. was administered by Georgette Still RN; for sedation; Verbal order read back and verified. 13:13:08 Zero performed for pressure channel P1 13:15:52 Procedure started. 13:16:01 Local anesthetic to right femoral artery with Lidocaine 2% by Riley Tran MD.INITIAL ACCESS ONLY 13:16:10 A 5 Fr sheath was inserted into the Right Femoral artery 13:16:35 Fentanyl 50 mcg I.V. was administered by Georgette Still RN; for sedation; Verbal order read back and verified. 13:16:41 J wire advanced. 13:16:51 A MULTIPACK Pigtail 5 Fr catheter was advanced over the wire and used for Procedure. 13:16:55 LV gram done using AQUINO 13:17:30 EF : 50 % 13:17:33 LV hemodynamics recorded. 13:17:38 Catheter removed. 13:17:46 A MULTIPACK JL 4.0 5Fr catheter was advanced over the wire and used for Procedure. 13:17:54 LCA angiography performed. 13:19:04 Catheter removed. 13:19:14 A MULTIPACK 3DRC 5Fr catheter was advanced over the wire and used for Procedure. 13:19:16 RCA angiography performed. 13:19:52 Catheter removed. 13:20:08 Sheath removed intact; hemostasis achieved with Exoseal to the Right Femoral artery. 13:20:36 Procedure ended.(Physican Out) 13:20:49 Fluoroscopy time 01.00 minutes. 13:20:55 Fluoroscopy dose: 475 mGy 13:20:55 Flurop Dose total: 475 13:21:03 Dose Area Product 55935 mGy/cm. 13:21:08 Contrast amount:Isovue 300 54ml. 13:21:11 Maximum allowable dose exceeded? No. 13:21:16 Insertion/operative site no bleeding no hematoma. 13:21:21 Post right femoral artery:stable 13:21:26 Post Procedure Pulses reassessed and unchanged 13:21:30 Post-procedure physical assessment completed. ASA score P 2 - A patient with mild systemic disease as per Riley Tran MD. 13:21:34 Post procedure rhythm: unchanged. 13:21:38 Estimated blood loss: 10 ml 13:21:43 Post procedure instruction explained to patient.Patient verbalizes understanding. 13:21:56 Procedure and supply charges have been captured, reviewed, submitted and are correct. 13:22:38 Procedure Complication : No complications 13:22:42 Vital chart was stopped 13:22:49 [facility] Findings: mild to moderate CAD (<70%) 13:22:52 Operative report dictated upon procedure completion. 13:22:53 See physician's report for complete and final results. 13:22:57 Report given to [facility] II. 13:23:01 Patient transfered to [facility] II with Bed. 13:23:03 Procedure ended. 13:23:03 Full Disclosure recording stopped 13:23:14 End room use (Document Last) 13:23:32 End room use (Document Last) 13:24:05 End room use (Document Last) Device Usage Item Name Manufacture Quantity Catalog Hospital Part Current Minimal L ot# / Number Charge Number Stock Stock Serial# Code ACIST Acist 1 70061 094457 660644 144684 20 Syringe Medical (83792) Systems Inc Bag Microtek 1 [id number] 92930 432479 5 Decanter Medical Inc. () Medline Medline 1 [id number] 661641 35238 826094 5 Cath Pack ([id number]) ACIST Hand Acist 1 12058 666905 527059 848490 5 Control Medical (01126) Systems Inc ACIST Acist 1 53679 684274 087183 931255 5 Manifold Medical (50656) Systems Inc DIAGNOSTIC Cardinal 1 ZM8383 632251 25952 567470 30 Multipack Health 5Fr catheter set (VP3988) SHEATH 5FR Terumo 1 WAY562 564115 943276 235391 5 [place] (XBB579) EMERALD Cardinal 1 502-455 037138 678431 621045 5 Guide Wire Health (502-455) Tegaderm 4 3M 1 1626W 774046 098198 059186 5 x 4 (1626W) MULTIPACK Cardinal 1 196652 5 Pigtail 5 Health Fr catheter MULTIPACK Cardinal 1 325541 5 JL 4.0 5Fr Health catheter MULTIPACK Cardinal 1 226652 5 3DRC 5Fr Health catheter Signature Audit [place] Stage Time Signature Unsigned Intra-Procedure 08/11/2019 Kym Schreiber 1:23:33 PM RT(R) Intra-Procedure 08/11/2019 Georgette Still 1:24:05 PM RN Intra-Procedure 08/11/2019 Riley Tran 1:24:28 PM MD Signatures Performing Physician : Signature : Riley Tran MD Date : Time : Monitor : Kym Schreiber Signature : RT Date : Time : Nurse : Georgette Still RN Signature : Date : Time : [place] [address] [place] [address]
[~2019-08-09 19:25] MED LIST changes: -COREG12.5 MG PO; -COUMADIN3 MG PO; -HYDROCODON-ACE1 EA10 PO; -K-DUR20 MEQ PO; -LISINOPRIL10 MG PO; -SEROQUEL50 MG PO
[2019-08-09] MEDS ORDERED: COREG12.5 MG PO (19:32)
[2019-08-09] MEDS ORDERED: COUMADIN3 MG PO (19:33)
[2019-08-09] MEDS ORDERED: LISINOPRIL10 MG PO (19:34)
[2019-08-09] MEDS ORDERED: HYDROCODON-ACE1 EA10 PO (19:34)
[2019-08-09] MEDS ORDERED: PROTONIX40 MG PO (19:35)
--- NOTE | 2019-08-09 19:47 | NUR ---
URINE SPECIMEN SENT TO LAB
[2019-08-09 20:07] LABS: BASOPHILS 0 % (0-2); EOSINOPHILS 0.9 % (0-7); HEMOGLOBIN 11.6 g/dL (13.5-17.5); IMMATURE GRANULOCYTES 0.3 % (0-5); MCH 27.8 pg (26.0-34.0); MCHC 33.1 g/dL (31.0-37.0); MCV 83.9 fL (80.0-100.0); MEAN PLATELET VOLUME 9.6 fL (7.4-10.4); MONOCYTES 6.1 % (2-11); NEUTROPHILS 83.7 % (40-80); PLATELET COUNT 223 10x3/uL (130-400); RBC 4.17 10x6/uL (4.20-6.10); RDW 16.7 % (11.5-14.5); WBC 6.8 10x3/uL (4.8-10.8)
[2019-08-09 20:13] LABS: APTT 21.8 SECONDS (22.8-39.4); INR 1.09 (0.85-1.17); PROTIME 13.6 SECONDS (11.6-15.0)
[2019-08-09 20:25] LABS: C-REACTIVE PROTEIN 1.9 mg/dL (0.0-0.9)
[2019-08-09 20:35] LABS: ALBUMIN 3.1 g/dL (3.4-5.0); ALKALINE PHOSPHATASE 593 U/L (46-116); ALT (SGPT) 314 U/L (10-68); BILIRUBIN - TOTAL 1.25 mg/dL (0.2-1.3); C-REACTIVE PROTEIN 1.6 mg/dL (0.0-0.9); CALC OSMOLALITY 279 mosm/kg (275-300); CALCIUM 8.3 mg/dL (8.5-10.1); CARBON DIOXIDE 28.2 mmol/L (21.0-32.0); CHLORIDE - SERUM 97 mmol/L (98-107); CKMB 1.2 U/L (0.0-3.6); CREATINE KINASE 101 UL (21-232); CREATININE - SERUM 0.8 mg/dL (0.6-1.3); GLUCOSE 275 mg/dL (74-106); MAGNESIUM - SERUM 1.6 mg/dL (1.8-2.4); PROTEIN - SERUM 6.4 g/dL (6.4-8.2); SODIUM 136 mmol/L (136-145); UREA NITROGEN 7 mg/dL (7-18); eGFR NON AFRICAN AMERICAN > 90 mL/min (90-120)
[2019-08-09 20:37] LABS: POTASSIUM - SERUM 2.7 mmol/L (3.5-5.1)
--- NOTE | 2019-08-09 20:37 | NUR ---
FLU SWAB OBTAINED AND SENT TO LAB
[2019-08-09 20:40] LABS: TROPONIN-I 0.079 ng/mL (0.000-0.060)
[2019-08-09 20:42] VITALS: BP 151/85
[2019-08-09 21:00] LABS: APPEARANCE CLEAR (CLEAR); COLOR YELLOW (YELLOW); GLUCOSE 250 mg/dL (NEGATIVE); NITRITE NEGATIVE (NEGATIVE); PROTEIN NEGATIVE (NEGATIVE)
[2019-08-09 21:01] LABS: BILIRUBIN NEGATIVE (NEGATIVE); KETONE NEGATIVE (NEGATIVE); UROBILINOGEN NORMAL (NORMAL)
[2019-08-09 21:38] LABS: UDS - AMPHET NEGATIVE QUAL (NEGATIVE); UDS - BARB NEGATIVE QUAL (NEGATIVE); UDS - BENZO NEGATIVE QUAL (NEGATIVE); UDS - COCAINE NEGATIVE QUAL (NEGATIVE); UDS - OPIATE POSITIVE QUAL (NEGATIVE); UDS - PCP NEGATIVE QUAL (NEGATIVE); UDS - THC NEGATIVE QUAL (NEGATIVE)
--- NOTE | 2019-08-09 21:40 | NUR ---
PT AND FAMILY UPDATED ON PLAN OF CARE.
--- NOTE | 2019-08-09 22:18 | NUR ---
REPORT RECIEVED FROM AMANDA CAPONE IN ER. PT TO BE ADMITTED TO 2114.
[2019-08-09 23:44] VITALS: BP 120/71
[2019-08-10 00:39] LABS: CKMB 0.7 U/L (0.0-3.6); CREATINE KINASE 83 UL (21-232); POTASSIUM - SERUM 2.4 mmol/L (3.5-5.1)
--- NOTE | 2019-08-10 01:02 | NUR ---
OFFICE PAGED CONCERNING LOW K+.
[2019-08-10 01:06] VITALS: BP 120/70; BMI 25.4
[2019-08-10] MEDS ORDERED: SEROQUEL50 MG PO (01:22)
--- NOTE | 2019-08-10 01:39 | NUR ---
HAYDEN KERNS CALLED BACK. ELECTROLYTE PROTOCAL ESTABLISED AT THIS TIME.
[2019-08-10 04:05] VITALS: BP 118/68
[2019-08-10 04:32] LABS: BASOPHILS 0.1 % (0-2); EOSINOPHILS 0.7 % (0-7); HEMATOCRIT 35.5 % (42.0-54.0); HEMOGLOBIN 11.3 g/dL (13.5-17.5); IMMATURE GRANULOCYTES 0.1 % (0-5); LYMPHOCYTES 10.7 % (15-50); MCHC 31.8 g/dL (31.0-37.0); MCV 84.7 fL (80.0-100.0); MEAN PLATELET VOLUME 9.4 fL (7.4-10.4); MONOCYTES 11.2 % (2-11); NEUTROPHILS 77.2 % (40-80); PLATELET COUNT 198 10x3/uL (130-400); RBC 4.19 10x6/uL (4.20-6.10)
[2019-08-10 05:04] LABS: ALBUMIN 2.8 g/dL (3.4-5.0); ALKALINE PHOSPHATASE 550 U/L (46-116); ALT (SGPT) 274 U/L (10-68); BILIRUBIN - TOTAL 3.12 mg/dL (0.2-1.3); CALCIUM 8.3 mg/dL (8.5-10.1); CARBON DIOXIDE 28.2 mmol/L (21.0-32.0); CHLORIDE - SERUM 103 mmol/L (98-107); CKMB 0.6 U/L (0.0-3.6); CREATINE KINASE 80 UL (21-232); CREATININE - SERUM 0.8 mg/dL (0.6-1.3); PROTEIN - SERUM 6.5 g/dL (6.4-8.2); SODIUM 141 mmol/L (136-145); UREA NITROGEN 6 mg/dL (7-18); eGFR NON AFRICAN AMERICAN > 90 mL/min (90-120)
[2019-08-10 05:06] LABS: CALC OSMOLALITY 281 mosm/kg (275-300); GLUCOSE 148 mg/dL (74-106); POTASSIUM - SERUM 2.8 mmol/L (3.5-5.1)
[2019-08-10 05:07] LABS: TROPONIN-I 0.064 ng/mL (0.000-0.060)
--- NOTE | 2019-08-10 05:13 | NUR ---
TREATED PT'S K+ WITH 40MEQ. REDRAW PUT IN.
--- NOTE | 2019-08-10 07:59 | NUR ---
AWAKE AND ALERT. FAMILY AT BEDSIDE. IP TO LEFT SUBCLAVIAN. NS TOINFUSINF AT 125 AND A MORPHINE LAYOUT TECHNICIAN PUMP SET AT 1MG EVERY 10 MIN WITH A 4 HOUR LOCKOUT. FAMILY AT BEDSIDE. TELEMERTY SHOWS FLUTTER AT 144. WILL MONITOR
--- NOTE | 2019-08-10 08:14 | NUR ---
AWAKE AND ALERT . TELEMERTY SHOWS SR 85. IP TO LEFT SUBCLAVIAN WITH NS AT 125 AND SOAP MIXER PUMP WITH SETTING OF MORPHINE 1MGEVERY 10 MIN WITH A 4 HOUR LOCKOUT. FAMILY AT BEDSIDE. DENIES ANY NEEDS AT PRESENT TIME
[2019-08-10 08:45] VITALS: BP 132/87
[2019-08-10 13:09] VITALS: BP 126/85
--- NOTE | 2019-08-10 17:07 | NUR ---
I have reviewed this patient and I concur with the Shift Assessment completed by the Licensed Practical Nurse today this shift.
--- NOTE | 2019-08-10 17:55 | NUR ---
LYING QUIETLY WITH FAMILY AT BEDSIDE,. MAIL FORWARDING SYSTEM MARKUP CLERK PUMP IN USE. TELEMERTY SHOWS SR. NPO FOR CATH TOMORROW
[2019-08-10 17:57] VITALS: BP 104/63
[2019-08-10 20:20] VITALS: BP 101/65
--- NOTE | 2019-08-10 23:07 | NUR ---
RECIEVED BEDSIDE SHIFT REPORT.UP IN BED WITH EYES OPEN AND TV ON. GIRLFRIEND AT BEDSIDE. ALERT AND ORIETNED X4. UP AD WENDY TO B/R. PORT TO LEFT CHEST WITH NS @ 125 AND USER EXPERIENCE ARCHITECT MORPHINE AT 1-10-10. TELEMETRY IN PLACE. DENIES ANY NEEDS AT THIS TIME.
[2019-08-11 00:37] VITALS: BP 94/47
--- NOTE | 2019-08-11 00:43 | NUR ---
RESTING IN BED WITH EYES CLOSED. NO S/S OF DISTRESS OBSERVED. CONT EP.
[2019-08-11 04:30] VITALS: BP 97/52
[2019-08-11 05:32] LABS: BASOPHILS 0.2 % (0-2); EOSINOPHILS 3.7 % (0-7); HEMATOCRIT 31.3 % (42.0-54.0); HEMOGLOBIN 9.9 g/dL (13.5-17.5); IMMATURE GRANULOCYTES 0.4 % (0-5); LYMPHOCYTES 16.7 % (15-50); MCH 26.8 pg (26.0-34.0); MCHC 31.6 g/dL (31.0-37.0); MCV 84.6 fL (80.0-100.0); MEAN PLATELET VOLUME 9.9 fL (7.4-10.4); MONOCYTES 12.5 % (2-11); NEUTROPHILS 66.5 % (40-80); PLATELET COUNT 186 10x3/uL (130-400); RDW 16.9 % (11.5-14.5)
[2019-08-11 05:43] LABS: WBC 5.6 10x3/uL (4.8-10.8)
[2019-08-11 06:04] LABS: ALBUMIN 2.4 g/dL (3.4-5.0); ALKALINE PHOSPHATASE 424 U/L (46-116); BILIRUBIN - TOTAL 2.31 mg/dL (0.2-1.3); CALC OSMOLALITY 280 mosm/kg (275-300); CALCIUM 7.9 mg/dL (8.5-10.1); CARBON DIOXIDE 28.4 mmol/L (21.0-32.0); CHLORIDE - SERUM 104 mmol/L (98-107); CKMB 0.7 U/L (0.0-3.6); CREATINE KINASE 38 UL (21-232); CREATININE - SERUM 0.7 mg/dL (0.6-1.3); GLUCOSE 166 mg/dL (74-106); PROTEIN - SERUM 5.7 g/dL (6.4-8.2); SODIUM 140 mmol/L (136-145); TROPONIN-I 0.034 ng/mL (0.000-0.060); UREA NITROGEN 6 mg/dL (7-18); eGFR NON AFRICAN AMERICAN > 90 mL/min (90-120)
[2019-08-11 06:05] LABS: ALT (SGPT) 172 U/L (10-68)
[2019-08-11 10:35] VITALS: BP 81/43
[2019-08-11 12:47] VITALS: BP 83/37
[2019-08-11 12:55] VITALS: Ht 180.3 cm; Wt 82.6 kg
--- NOTE | 2019-08-11 12:58 | NUR ---
PRE-OPS GIVEN. TO CUPOLA OPERATOR BY BED.
--- NOTE | 2019-08-11 13:50 | NUR ---
BACK FROM SLIDE FASTENER REPAIRER. VS WNL. RIGHT GROIN STABLE WITHOUT BLEEDING OR HEMATOMA NOTED. WILL MONITOR.
--- NOTE | 2019-08-11 15:54 | NUR ---
BED REST UP. GROIN STABLE.
[2019-08-11 16:40] VITALS: BP 98/57
[2019-08-11 20:41] VITALS: BP 92/48
[2019-08-12 00:58] VITALS: BP 91/40
[2019-08-12 04:49] VITALS: BP 92/48
[2019-08-12 06:14] LABS: BASOPHILS 0.2 % (0-2); EOSINOPHILS 4.2 % (0-7); HEMATOCRIT 30.9 % (42.0-54.0); HEMOGLOBIN 9.8 g/dL (13.5-17.5); IMMATURE GRANULOCYTES 0.2 % (0-5); LYMPHOCYTES 24.8 % (15-50); MCH 26.8 pg (26.0-34.0); MCHC 31.7 g/dL (31.0-37.0); MCV 84.4 fL (80.0-100.0); MONOCYTES 9.5 % (2-11); NEUTROPHILS 61.1 % (40-80); RBC 3.66 10x6/uL (4.20-6.10); RDW 16.9 % (11.5-14.5); WBC 4.8 10x3/uL (4.8-10.8)
[2019-08-12 06:25] LABS: CALCIUM 8.2 mg/dL (8.5-10.1); CARBON DIOXIDE 25.4 mmol/L (21.0-32.0); CHLORIDE - SERUM 103 mmol/L (98-107); CREATININE - SERUM 0.6 mg/dL (0.6-1.3); GLUCOSE 164 mg/dL (74-106); SODIUM 139 mmol/L (136-145); eGFR NON AFRICAN AMERICAN > 90 mL/min (90-120)
[2019-08-12 06:26] LABS: CALC OSMOLALITY 278 mosm/kg (275-300); UREA NITROGEN 4 mg/dL (7-18)
[2019-08-12 06:27] LABS: PLATELET COUNT 226 10x3/uL (130-400); POTASSIUM - SERUM 2.9 mmol/L (3.5-5.1)
[2019-08-12 09:14] VITALS: BP 98/49
[2019-08-12] MEDS ORDERED: COMBIVENT RESPIM4 GM INH (13:20)
[2019-08-12] MEDS ORDERED: IPRAT-ALBUT 0.5-3 ML UPD (13:20)
[2019-08-12] MEDS ORDERED: COUMADIN3 MG PO (13:21)
[2019-08-12] MEDS ORDERED: ISOSORBIDE MONO60 M1 PO (13:22)
[2019-08-12] MEDS ORDERED: HYDRALAZINE HCL50 MG PO (13:22)
[2019-08-12] MEDS ORDERED: LIPITOR80 MG PO (13:22)
[2019-08-12] MEDS ORDERED: COREG12.5 MG PO (13:23)
[2019-08-12] MEDS ORDERED: NITROSTAT0.4 MG SL (13:23)
[2019-08-12] MEDS ORDERED: LISINOPRIL10 MG PO (13:24)
[2019-08-12] MEDS ORDERED: TRAZODONE HCL300 MG PO (13:24)
[2019-08-12] MEDS ORDERED: XANAX2 MG PO (13:25)
[2019-08-12] MEDS ORDERED: SEROQUEL50 MG PO (13:25)
[2019-08-12] MEDS ORDERED: KLOR-CON M2020 MEQ PO (13:25)
[2019-08-12] MEDS ORDERED: DALIRESP500 MCG PO (13:26)
[2019-08-12] MEDS ORDERED: SINGULAIR10 MG PO (13:26)
[2019-08-12] MEDS ORDERED: BUMETANIDE0.5 MG PO (13:26)
[2019-08-12] MEDS ORDERED: ZOFRAN4 MG PO (13:27)
[2019-08-12] MEDS ORDERED: PROTONIX40 MG PO (13:27)
[2019-08-12] MEDS ORDERED: OXYBUTYNIN CHLOR5 M1 PO (13:28)
[2019-08-12] MEDS ORDERED: THEOCHRON200 MG PO (13:28)
--- NOTE | 2019-08-12 13:44 | NUR ---
UPON ADMIT, PATIENT HAS NOT HAD A FLU SHOT. WHEN QUESTIONED, HE STATES THAT HE HAD ONE IN [place] 2 WEEKS AGO.
--- NOTE | 2019-08-12 14:19 | NUR ---
IV AND TELEMETRY DCD. DC PLANS GIVEN. UNDERSTANDING VOICED. ESCORTED TO CAR BY W/C.
--- NOTE | 2019-08-12 16:33 | MORECARE ---
CASE MANAGEMENT DISCHARGE SUMMARY PATIENT: DARA TOMPKINS UNIT: [id number] ADM DATE: 08/09/19 AGE: 49 : 70 SEX: M ROOM/BED: D.2115 AUTHOR: ANOOP TORIBIO PHYSICIAN: REFERRING PHYSICIAN: MARYAM GONZALEZ MD DATE OF SERVICE: 08/12/19 Discharge Plan Patient Name: DARA TOMPKINS Facility: [facility]:[place] : 1970 Planned Disposition: Home Anticipated Discharge Date: 08/12/19 Discharge Date: 08/12/2019 Expected LOS: 3 Initial Reviewer: [email or web address] Initial Review Date: 08/12/2019 Generated: 08/12/19 5:33 pm DCPIA - Discharge Planning Initial Assessment Updated by [email or web address]: Lavell Eastman on 08/12/19 4:31 pm * Is the patient Alert and Oriented? Yes * How many steps to enter\exit or inside your home? NONE * PCP DR GONZALEZ OR DR. BARRIENTOS * Pharmacy [facility] * Preadmission Environment Home Alone * ADLs Independent * Equipment Oxygen * Other Equipment HOME OXYGEN NEEDED [employer] - MEDICAL EQUIPMENT PROVIDER * List name and contact numbers for known caregivers / representatives who currently or will assist patient after discharge: AILYN CAMPOVERDE, SON, * Verbal permission to speak to the caregivers and representatives has been obtained from the patient. N/A * Community resources currently utilized None * Please name any agencies selected above. NONE * Additional services required to return to the preadmission environment? No * Can the patient safely return to the preadmission environment? Yes * Has this patient been hospitalized within the prior 30 days at any hospital? No Coverage Notice Reviewer: [id number] - Lavell Eastman Notice Issued Date-Time: 08/12/2019 12:29 Notice Type: IM Discharge Notice Notice Delivered To: Patient Relationship to Patient: Inside Sales Assistant Name: Delivery Method: HAND - Hand Delivered Naomi Days: Prior Verbal Notification: Recipient Understood Notice: Yes Recipient Signature: Yes Med Rec Note Co-signed by Attending: Coverage Notice Comment: Patient Name: DARA TOMPKINS Page [phone] at 1633 All edits/amendments must be made on the electronic document DICTATION DATE: 08/12/191632 UTILITY WORKER PRODUCTION: KEYANNA 08/12/19 163 RPT#: [id number] DC DATE:08/12/19 STATUS: DIS IN [facility] [address] [place] [address] END OF REPORT
--- NOTE | 2019-08-12 16:43 | MORECARE ---
CASE MANAGEMENT DISCHARGE SUMMARY PATIENT: DARA TOMPKINS UNIT: [id number] ADM DATE: 08/09/19 AGE: 49 : 70 SEX: M ROOM/BED: D.6475 AUTHOR: CATARINO,DOC PHYSICIAN: REFERRING PHYSICIAN: MARYAM GONZALEZ MD DATE OF SERVICE: 08/12/19 Discharge Plan Patient Name: DARA TOMPKINS Facility: [facility]:[place] : 1970 Planned Disposition: Home Anticipated Discharge Date: 08/12/19 Discharge Date: 08/12/2019 Expected LOS: 3 Initial Reviewer: [email or web address] Initial Review Date: 08/12/2019 Generated: 08/12/19 5:43 pm Comments DCP- Discharge Planning Updated by [email or web address]: Lavell Eastman on 08/12/19 3:[address] Patient Name: DAAR TOMPKINS Admission Status: ER Accout number: [id number] Admission Date: 08-09-2019 : 1970 Admission Diagnosis: Attending: MARYAM GONZALEZ Current LOS: 3 Anticipated DC Date: 08-12-2019 Planned Disposition: Home Primary Insurance: MEDICARE A & B Discharge Planning Comments: CM MET WITH PT IN ROOM TO DISCUSS DISCHARGE PLANNING AND NEEDS. PT REPORTS LIVING AT HOME INDEPENDENTLY AND ALONE. PT HAS BEEN STAYING AT THE [facility] AND IF HE RUNS OUT OF MONEY, HE WILL BE STAYING IN HIS VEHICLE. PT HAS PORTABLE OXYGEN CONCENTRATOR THAT PLUGS INTO THE CAR CIGARETTE BACKPACKERS MANAGER FROM [employer]. PT HAS NO OUTSIDE SERVICES ASSISTING IN THE HOME. CM DISCUSSED AVAILABILITY OF HOME HEALTH, REHAB SERVICES AND MEDICAL EQUIPMENT. PT DENIES DISCHARGE NEEDS, REPORTS HIS CAR IS HERE AND HIS GIRLFRIEND WILL PICK HIM UP FOR DISCHARGE HOME; HIS GIRLFRIEND IS DRIVING. IMPORTANT MESSAGE FROM MEDICARE PROVIDED AND EXPLAINED. Lining Folder: Lavell Eastman DCPIA - Discharge Planning Initial Assessment Updated by [email or web address]: Lavell Eastman on 08/12/19 4:31 pm * Is the patient Alert and Oriented? Yes * How many steps to enter\exit or inside your home? NONE * PCP DR GONZALEZ OR DR. BARRIENTOS * Pharmacy [facility] * Preadmission Environment Home Alone * ADLs Independent * Equipment Oxygen * Other Equipment HOME OXYGEN NEEDED [employer] - MEDICAL EQUIPMENT PROVIDER * List name and contact numbers for known caregivers / representatives who currently or will assist patient after discharge: AILYN CAMPOVERDE, DIVINA, * Verbal permission to speak to the caregivers and representatives has been obtained from the patient. N/A * Community resources currently utilized None * Please name any agencies selected above. NONE * Additional services required to return to the preadmission environment? No * Can the patient safely return to the preadmission environment? Yes * Has this patient been hospitalized within the prior 30 days at any hospital? No Coverage Notice Reviewer: [email or web address] Fran Eastman Notice Issued Date-Time: 08/12/2019 12:29 Notice Type: IM Discharge Notice Notice Delivered To: Patient Relationship to Patient: Daycare Provider Name: Delivery Method: HAND - Hand Delivered Naomi Days: Prior Verbal Notification: Recipient Understood Notice: Yes Recipient Signature: Yes Med Rec Note Co-signed by Attending: Coverage Notice Comment: Last DP export: 08/12/19 3:33 p Patient Name: DARA TOMPKINS Page 14939 at 1643 All edits/amendments must be made on the electronic document DICTATION DATE: 08/12/191642 MOUNTER BRASS WIND INSTRUMENTS: KEYANNA 08/12/191642 RPT#: [id number] DC DATE:08/12/19 STATUS: DIS IN [facility] [address] [place] [address] END OF REPORT
--- NOTE | 2019-08-13 14:07 | CN ---
PATIENT NAME:DARA TOMPKINS MEDICAL RECORD: [id number] : [birth year] LOCATION:D. D.2115 ADMIT DATE: 08/09/19 ACCOUNT: [id number] CONSULTING PHYSICIAN: ISIDRA PAZ MD REFERRING PHYSICIAN: MARYAM GONZALEZ MD DATE OF CONSULTATION: 08/10/2019 DIAGNOSES: 1. Non-Q-wave myocardial infarction. 2. Coronary artery disease. 3. Previous multivessel percutaneous transluminal coronary angioplasty stent. 4. Hypertension. 5. Hyperlipidemia. 6. Chronic obstructive pulmonary disease. 7. Smoking history. 8. Pancreatic cancer. HISTORY OF PRESENT ILLNESS: Mr. Tompkins has been having episodes of increasing episodes of chest pain, chest discomfort compatible with angina as well as increasing shortness of breath. These are his cardiac symptomatology he has had in the past. He presents now with worsening of this and rules in for a non-Q-wave myocardial infarction. He is undergoing treatment for pancreatic cancer. His last scheduled chemotherapy at this point is for next week. He continues to have episodes of chest discomfort this morning. His medical management is such of Coumadin; however, compliance is questionable, his INR is 1.0; Imdur; hydralazine; Coreg; and lisinopril. PHYSICAL EXAMINATION: CONSTITUTIONAL/GENERAL APPEARANCE: Well nourished, well developed, appears stated age. EYES: Lids and conjunctivae noninjected. No discharge. No pallor. ENT: Lips within normal limit. No cyanosis. No pallor. NECK: Carotid arteries, bilateral normal upstroke. No bruits. No thrills. No jugular venous pressure or distention. CERVICAL LYMPH NODES: Nontender. Nonenlarged. THYROID: Not enlarged. No nodules. CARDIOVASCULAR: Precordial exam, nondisplaced. No heaves or pericardial thrills. Rate and rhythm, regular. Heart sounds, normal S1, normal S2. No S3, no gallop, no rub. Systolic murmur, not heard. Diastolic murmur, not heard. RESPIRATORY: Respiratory effort, unlabored. Normal curvature. No thoracic deformity. No chest wall tenderness. Percussion, resonant. Auscultation, clear. No wheezes, no rales, no rhonchi. ABDOMEN: Soft, nondistended, nontender. No abdominal pain, no vomiting and normal appetite. MUSCULOSKELETAL: No joint tenderness, normal gait, normal tone. SKIN: Warm and dry. OVERALL IMPRESSION: Non-Q-wave myocardial infarction. Again, echocardiogram today to assess his LV function currently and proceed with coronary angiography in the a.m. We will increase his beta blockade to get better heart rate and blood pressure control. TRANSINT:[id number] Voice Confirmation ID: [id number] DOCUMENT ID: [id number] CONSULT REPORT [id number] DARA TOMPKINS JEFFREY MD at 1407 CC: [id number] DICTATION DATE: 08/10/19 1115 VENEER SORTER: 08/10/19 1220 DIS IN 08/12/19 [facility] [address] [place] [address]
--- NOTE | 2019-08-13 14:08 | EC ---
PATIENT:DARA TOMPKINS DATE OF SERVICE: 08/09/19 SEX: M MEDICAL RECORD: [id number] DATE OF : [birth year] LOCATION:D.M2 D.211 AGE OF PATIENT: 49 ADMISSION DATE: 08/09/19 REFERRING PHYSICIAN: INTERPRETING PHYSICIAN: ISIDRA TRAN MD ECHOCARDIOGRAM REPORT ECHO CHARGES 4 ECHO COMPLETE Date: 08/10/19 CLINICAL DIAGNOSIS: LA ECHOCARDIOGRAPHIC MEASUREMENTS (adult normal given) AC root (d.<3.7cm) 4.0 cm LV Septum d (<1.2 cm> 1.4 cm Valve Excursion 1.6 cm LV Septum (systole) 1.6 cm Left Atria (s.<4.0cm> 3.8 cm LVPW d(<1.2cm) 1.7 cm RV (d.<2.3cm) 4.0 cm LVPW (sytole) 1.9 cm LV diastole(<5.6CM) 5.2 cm MV E-F(>70mm/sec) cm LV systole 3.9 cm LVOT Diameter 1.8 cm MV exc.(>10mm) cm Est.ejection fraction (50-75%) % DOPPLER: LVIT cm/sec A 80.0 cm/sec E 101 cm/sec LA cm/sec RVSP 29 mmHg LVOT 122 cm/sec AOP1/2T m/s Asc. Ao 162 cm/sec RVOT 66 cm/sec RA cm/sec PA 109 cm/sec AV Gradient Peak 10.50mmHg AV Mean 7.07 mmHg AV Area 1.9 cm MV Gradient Peak 4.52 mmHg MV Mean 1.80 mmHg MV Area cm COMMENTS: Asbestos Cement Sheet Supervisor: Mikki FITZGERALD Flag Signaler: 1 Dr. Tran TAPE# PACS Pericardial Effusion N DATE OF SERVICE: FINDINGS: 1. Left ventricular chamber size is within normal limits. Left ventricular systolic function is normal. Overall ejection fraction estimated at 50% to 55%. 2. Left atrium is within normal limits at 3.8 cm. Right atrium and right ventricular chamber sizes are mildly dilated. 3. Valvular structures have normal structure and motion. 4. Doppler interrogation reveals mild mitral regurgitation, mild tricuspid regurgitation, no other valvular insufficiency or stenosis. Pulmonary systolic ECHOCARDIOGRAM REPORT [id number] DARA TOMPKINS pressure is estimated at 29 mmHg. 5. No evidence of pericardial effusion or left ventricular thrombus. TRANSINT:[id number] Voice Confirmation ID: [id number] DOCUMENT ID: [id number] ISIDRA TRAN MD at 1408 CC: [id number] DICTATION DATE: 08/11/19 1527 GRANULATING MACHINE OPERATOR: 08/12/19 0035 DIS IN 08/12/19 [place] [id number] [place] [id number]
--- NOTE | 2019-08-13 14:08 | OP ---
PATIENT NAME: DARA TOMPKINS MEDICAL RECORD: [id number] :70 LOCATION:D.M2 D.2115 ADMISSION DATE:08/09/19 SURGEON: ISIDRA PAZ MD DATE OF OPERATION: 08/11/2019 PROCEDURES: 1. Left heart catheterization. 2. Selective coronary angiography. 3. Left ventriculogram. INDICATION: Angina, non-Q-wave myocardial infarction, and coronary artery disease. PROCEDURE IN DETAIL: After informed consent was obtained and after a detailed description of risks, benefits as well as alternative therapies, the patient elected to proceed with angiogram and heart catheterization. The right femoral area was prepped and draped in normal sterile fashion. Right femoral artery was cannulated via modified Seldinger technique with placement of 5-Slovak sheath. All catheters exchanged through this sheath. FINDINGS: Left ventriculogram was performed in standard 30-degree AQUINO view, reveals inferior hypokinesis, ejection fraction in the 40% to 45% range. SELECTIVE CORONARY ANGIOGRAPHY: 1. Left main is with no significant angiographic disease. 2. Left anterior descending has mild irregularities, but no flow-limiting stenosis. 3. The left circumflex has mild irregularities, but no flow-limiting stenosis. 4. Right coronary artery is chronically totally occluded. Distal right coronary fills via [id number] collaterals. OVERALL IMPRESSION: Wide patency of the LAD and circumflex, total occlusion of the RCA, unchanged from previous angiography, non-Q-wave myocardial infarction secondary to demand ischemia from collateralization of the distal RCA. Center medical management on treatment of the angina and coronary artery disease. TRANSINT:[id number] Voice Confirmation ID: [id number] DOCUMENT ID: [id number] ISIDRA PAZ MD at 1408 CC: [id number] DICTATION DATE: 08/11/19 1326 FILBERT GROWER: 08/11/19 1558 DIS IN 08/12/19 [place] [id number] [place] [id number]
== END 2019-08-12 14:19 | disposition home or self-care (01) | DRG 280 ==
LOC: D.ER 19:25 → D.M2 21:35
PROVIDERS: Family Medicine; Internal Medicine Interventional Cardiology; ADMIT Legal Medicine; ATTEND Legal Medicine
PROC: B2151ZZ Fluoroscopy of Left Heart using Low Osmolar Contrast (ICD-10-PCS; 2019-08-11)
PROC: 4A023N7 Measurement of Cardiac Sampling and Pressure, Left Heart, Percutaneous Approach (ICD-10-PCS; 2019-08-11)
PROC: B2111ZZ Fluoroscopy of Multiple Coronary Arteries using Low Osmolar Contrast (ICD-10-PCS; principal; 2019-08-11 12:45)
DX: I21.A1 Myocardial infarction type 2 (principal); E43 Unspecified severe protein-calorie malnutrition; C25.9 Malignant neoplasm of pancreas, unspecified; I10 Essential (primary) hypertension; E78.5 Hyperlipidemia, unspecified; J44.9 Chronic obstructive pulmonary disease, unspecified; I25.119 Atherosclerotic heart disease of native coronary artery with unspecified angina pectoris; D64.9 Anemia, unspecified; E87.6 Hypokalemia; Z68.25 Body mass index [BMI] 25.0-25.9, adult

== ENCOUNTER 2019-08-25 15:12 | Inpatient (IN) | payer MEDICARE ==
[~2019-08-25] VITALS: Ht 180.3 cm; Wt 80.7 kg
[~2019-08-25 15:12] MED LIST changes: +COREG12.5 MG PO; +COUMADIN3 MG PO; +HYDROCODON-ACE1 EA10 PO; +LISINOPRIL10 MG PO; +SEROQUEL50 MG PO
[2019-08-25 16:41] LABS: BASOPHILS 0 % (0-2); EOSINOPHILS 0.2 % (0-7); HEMATOCRIT 34.2 % (42.0-54.0); HEMOGLOBIN 11.4 g/dL (13.5-17.5); IMMATURE GRANULOCYTES 0.3 % (0-5); LYMPHOCYTES 10.3 % (15-50); MCH 27.6 pg (26.0-34.0); MCHC 33.3 g/dL (31.0-37.0); MCV 82.8 fL (80.0-100.0); MEAN PLATELET VOLUME 9.8 fL (7.4-10.4); MONOCYTES 6.2 % (2-11); RBC 4.13 10x6/uL (4.20-6.10); RDW 19.2 % (11.5-14.5)
[2019-08-25 16:50] LABS: PLATELET COUNT 335 10x3/uL (130-400)
[2019-08-25 17:12] LABS: ALBUMIN 3.2 g/dL (3.4-5.0); ALT (SGPT) 361 U/L (10-68); BILIRUBIN - TOTAL 11.08 mg/dL (0.2-1.3); CALC OSMOLALITY 279 mosm/kg (275-300); CALCIUM 8.9 mg/dL (8.5-10.1); CARBON DIOXIDE 29.1 mmol/L (21.0-32.0); CHLORIDE - SERUM 97 mmol/L (98-107); CREATININE - SERUM 0.6 mg/dL (0.6-1.3); GLUCOSE 179 mg/dL (74-106); PROTEIN - SERUM 6.7 g/dL (6.4-8.2); SODIUM 139 mmol/L (136-145); TROPONIN-I 0.036 ng/mL (0.000-0.060); UREA NITROGEN 8 mg/dL (7-18); eGFR NON AFRICAN AMERICAN > 90 mL/min (90-120)
[2019-08-25 17:13] LABS: ALKALINE PHOSPHATASE 1132 U/L (46-116)
[2019-08-25 17:20] LABS: D-DIMER-QUANTITATIVE 0.61 ug/mLFEU (0.20-0.54); POTASSIUM - SERUM 2.7 mmol/L (3.5-5.1)
[2019-08-25 17:22] LABS: APTT 22.2 SECONDS (22.8-39.4)
[2019-08-25 17:23] LABS: INR 1.02 (0.85-1.17); PROTIME 12.9 SECONDS (11.6-15.0)
--- NOTE | 2019-08-25 19:00 | NUR ---
PT RESTING ON BED. PT C/O PAIN AT THIS TIME.
[2019-08-25 19:20] VITALS: BP 149/76
--- NOTE | 2019-08-25 19:42 | NUR ---
RN ADMINISTERED IV MORPHINE ORDERED. PT RESTING ON BED.
--- NOTE | 2019-08-25 20:00 | NUR ---
PT PROVIDED APPLE JUICE PER REQUEST AND PROVIDED WARM BLANKET.
--- NOTE | 2019-08-25 20:49 | NUR ---
PT SLEEPING ON BED. NO S/S OF ACUTE DISTRESS NOTED.
[2019-08-26 00:39] VITALS: BP 138/64
[2019-08-26 04:00] VITALS: BP 142/70
[2019-08-26 04:43] VITALS: BP 117/70
[2019-08-26 06:50] LABS: BASOPHILS 0 % (0-2); EOSINOPHILS 0.1 % (0-7); HEMATOCRIT 32.7 % (42.0-54.0); HEMOGLOBIN 10.8 g/dL (13.5-17.5); IMMATURE GRANULOCYTES 0.2 % (0-5); LYMPHOCYTES 9.9 % (15-50); MCH 27.5 pg (26.0-34.0); MCV 83.2 fL (80.0-100.0); MEAN PLATELET VOLUME 10.1 fL (7.4-10.4); MONOCYTES 4.7 % (2-11); NEUTROPHILS 85.1 % (40-80); PLATELET COUNT 290 10x3/uL (130-400); RBC 3.93 10x6/uL (4.20-6.10); RDW 19.1 % (11.5-14.5); WBC 13.3 10x3/uL (4.8-10.8)
[2019-08-26 07:07] LABS: ALBUMIN 2.6 g/dL (3.4-5.0); ALKALINE PHOSPHATASE 919 U/L (46-116); ALT (SGPT) 281 U/L (10-68); BILIRUBIN - TOTAL 11.36 mg/dL (0.2-1.3); CALCIUM 8.4 mg/dL (8.5-10.1); CARBON DIOXIDE 31.5 mmol/L (21.0-32.0); CHLORIDE - SERUM 99 mmol/L (98-107); CREATININE - SERUM 0.6 mg/dL (0.6-1.3); GLUCOSE 159 mg/dL (74-106); MAGNESIUM - SERUM 1.8 mg/dL (1.8-2.4); PHOSPHOROUS 3.1 mg/dL (2.5-4.9); PROTEIN - SERUM 5.6 g/dL (6.4-8.2); SODIUM 138 mmol/L (136-145); eGFR NON AFRICAN AMERICAN > 90 mL/min (90-120)
[2019-08-26 07:19] LABS: CALC OSMOLALITY 275 mosm/kg (275-300); UREA NITROGEN 4 mg/dL (7-18)
[2019-08-26 07:22] LABS: POTASSIUM - SERUM 2.7 mmol/L (3.5-5.1)
--- NOTE | 2019-08-26 07:43 | NUR ---
PATIENT RECIEVED FROM PREVIOUS NURSE RESTING IN BED WITH NO NEEDS VOICED, CL IN REACH 02 97% ON 2L/NC. NS @75 INFUSING TO LEFT PORT. SL TO LEFT FA.
[2019-08-26 07:50] VITALS: BP 127/80
--- NOTE | 2019-08-26 07:53 | NUR ---
CALLED [facility] WITH [facility], WAITING FOR RETURN CALL WITH ORDERS
[2019-08-26 12:32] VITALS: Ht 180.3 cm; Wt 80.7 kg
[2019-08-26 13:27] VITALS: BP 118/62
[2019-08-26 16:52] VITALS: BP 114/66
[2019-08-27] VITALS (13 sets, daily range): BP systolic 62–129; BP diastolic 38–79
--- NOTE | 2019-08-27 02:12 | NUR ---
0115 TOOK PATIENTS VITALS BP WAS 68/40, RR 20, HR 65, O2 98% ON 2L OXYGEN. PATIENT WAS SEDATED, SLURRING WORDS, BUT COULD ANSWER ALL QUESTIONS CORRECTLY. [address] GONZALEZ, HE ORDERD A 500ML BOLUS, MORPHINE PROGRESS WORKER PUMP PUT ON HOLD UNTIL BP COMES UP, BUT ALL OTHER PO MEDS CONTINUED.
--- NOTE | 2019-08-27 02:36 | NUR ---
BP 62/38 WITH A MAP OF 46. CONSULTED DR. GONZALEZ HE SAID TO KEEP AND EYE ON HIM AND IF HIS BLOOD PRESSURE DOES NOT IMPROVE TO SEND HIM TO ICU.
--- NOTE | 2019-08-27 03:20 | NUR ---
SPOKE TO HOUSE SUPERVISER, SAYS TO CONTINUE MONITERING PATIENTS CONDITION AND CALL BACK WITH ANY CHANGES.
[2019-08-27 06:28] LABS: BASOPHILS 0.1 % (0-2); EOSINOPHILS 0.4 % (0-7); HEMATOCRIT 27.5 % (42.0-54.0); IMMATURE GRANULOCYTES 0.5 % (0-5); LYMPHOCYTES 11.6 % (15-50); MCHC 32.7 g/dL (31.0-37.0); MCV 82.6 fL (80.0-100.0); MEAN PLATELET VOLUME 10.1 fL (7.4-10.4); MONOCYTES 8.5 % (2-11); NEUTROPHILS 78.9 % (40-80); RBC 3.33 10x6/uL (4.20-6.10); RDW 19.2 % (11.5-14.5)
[2019-08-27 06:55] LABS: CALCIUM 8.1 mg/dL (8.5-10.1); CARBON DIOXIDE 26.7 mmol/L (21.0-32.0); CHLORIDE - SERUM 100 mmol/L (98-107); CREATININE - SERUM 0.6 mg/dL (0.6-1.3); GLUCOSE 147 mg/dL (74-106); SODIUM 136 mmol/L (136-145); eGFR NON AFRICAN AMERICAN > 90 mL/min (90-120)
[2019-08-27 07:01] LABS: PLATELET COUNT 220 10x3/uL (130-400); WBC 9.7 10x3/uL (4.8-10.8)
[2019-08-27 07:14] LABS: CALC OSMOLALITY 272 mosm/kg (275-300); UREA NITROGEN 7 mg/dL (7-18)
[2019-08-27 07:15] LABS: POTASSIUM - SERUM 2.4 mmol/L (3.5-5.1)
--- NOTE | 2019-08-27 11:06 | NUR ---
PATIENT BP HAS STAYED IN THE 110/60 RANGE FOR AN HOUR. HYDROCHLORIC MANUFACTURING SUPERVISOR TURNED BACK ON. CL IN REACH. WCTM
--- NOTE | 2019-08-27 11:15 | NUR ---
PATIENT HAS HAD A BOWEL MOVEMENT. CLEANED UP VIA BED BATH. NEW LINENS PROVIDED. CL IN REACH. WCTM
--- NOTE | 2019-08-27 12:56 | MORECARE ---
CASE MANAGEMENT DISCHARGE SUMMARY PATIENT: DARA TOMPKINS UNIT: [id number] ADM DATE: 08/25/19 AGE: 49 : [birth year] SEX: M ROOM/BED: D.2206 AUTHOR: ANOOP TORIBIO PHYSICIAN: REFERRING PHYSICIAN: MARYAM GONZALEZ MD DATE OF SERVICE: 08/27/19 Discharge Plan Patient Name: DARA TOMPKINS [facility] [facility] 1970 Planned Disposition: Detention Facility Anticipated Discharge Date: Discharge Date: Expected LOS: Initial Reviewer: [email or web address] Initial Review Date: 08/25/2019 Generated: 08/27/19 1:56 pm DCPIA - Discharge Planning Initial Assessment Updated by [email or web address]: Angelika Gale on 08/27/19 12:53 pm * Is the patient Alert and Oriented? Yes * How many steps to enter\exit or inside your home? * PCP FLOYD * Pharmacy [facility] * Preadmission Environment Home with Family * ADLs Independent * Equipment Cane Oxygen * Other Equipment IN STORAGE @ [facility] * List name and contact numbers for known caregivers / representatives who currently or will assist patient after discharge: AILYN (SON) [phone] * Verbal permission to speak to the caregivers and representatives has been obtained from the patient. N/A * Community resources currently utilized Other * Additional services required to return to the preadmission environment? Yes * Has this patient been hospitalized within the prior 30 days at any hospital? Yes Patient Name: DARA TOMPKINS Page 15448 at 1256 All edits/amendments must be made on the electronic document DICTATION DATE: 08/27/19 1256 INFORMATICS SPEC: KEYANNA 08/27/19 1256 RPT#: [id number] DC DATE: STATUS: ADM IN [facility] [address] [place] [address] END OF REPORT
--- NOTE | 2019-08-27 13:23 | MORECARE ---
CASE MANAGEMENT DISCHARGE SUMMARY PATIENT: DARA TOMPKINS UNIT: [id number] ADM DATE: 08/25/19 AGE: 49 : 70 SEX: M ROOM/BED: D.2206 AUTHOR: CATARINODOC PHYSICIAN: REFERRING PHYSICIAN: MARYAM GONZALEZ MD DATE OF SERVICE: 08/27/19 Discharge Plan Patient Name: DARA TOMPKINS Facility: [facility]:[place] : 1970 Planned Disposition: Nursing Home Facility Anticipated Discharge Date: Discharge Date: Expected LOS: Initial Reviewer: [email or web address] Initial Review Date: 08/25/2019 Generated: 08/27/19 2:23 pm Comments DCP- Discharge Planning Updated by [email or web address]: Angelika Gale on 08/27/19 12:[address] Patient Name: DARA TOMPKINS Admission Status: ER Accout number: [id number] Admission Date: 08-25-2019 : 1970 Admission Diagnosis: Attending: MARYAM GONZALEZ Current LOS: 2 Anticipated DC Date: Planned Disposition: Nursing Home Facility Primary Insurance: MEDICARE A & B Discharge Planning Comments: CM met with patient to complete initial dc planning assessment. CM educated patient on the CM role and verbal consent given by patient to complete assessment. Patient lives either with his son or in his car. At discharge patient would like to go to [facility] for skilled and feels this is a safe discharge. CM discussed availability of home health, rehab services, and medical equipment. He stated that most of his DME is in a storage building at [facility] ( stella, [employer], [place]). He has portable O2 from [employer] that plugs into his care cigarette pecan picker. Rupesh for [facility]. He stated that his care is in the parking lot at the hospital. He has a cane here in [place]. Patient denied known discharge needs at this time. CM will continue to follow and will assist as needed with dc plans/needs. Mechanical Manufacturing Engineer: Angelika Gale DCPIA - Discharge Planning Initial Assessment Updated by [email or web address]: Angelika Gale on 08/27/19 1:15 pm * Is the patient Alert and Oriented? Yes * How many steps to enter\exit or inside your home? * PCP FLOYD * Pharmacy [facility] * Preadmission Environment Home with Family * ADLs Independent * Equipment Cane Oxygen * Other Equipment IN STORAGE @ [place] [facility] * List name and contact numbers for known caregivers / representatives who currently or will assist patient after discharge: AILYN (SON) [phone] * Verbal permission to speak to the caregivers and representatives has been obtained from the patient. N/A * Community resources currently utilized Other * Additional services required to return to the preadmission environment? Yes * Has this patient been hospitalized within the prior 30 days at any hospital? Yes Coverage Notice Reviewer: [email or web address] Fran Gale Notice Issued Date-Time: 08/27/2019 8:30 Notice Type: Patient Choice Letter Notice Delivered To: Patient Relationship to Patient: Produce Sorter Name: Delivery Method: HAND - Hand Delivered Naomi Days: Prior Verbal Notification: Recipient Understood Notice: Yes Recipient Signature: Yes Med Rec Note Co-signed by Attending: Coverage Notice Comment: rupesh for [facility] DP export: 08/27/19 11:56 Patient Name: DARA TOMPKINS Page 34352 at 1323 All edits/amendments must be made on the electronic document DICTATION DATE: 08/27/19 1323 PECAN PICKER: KEYANNA 08/27/19 1323 RPT#: [id number] DC DATE: STATUS: ADM IN [facility] [address] [place] [address] END OF REPORT
[2019-08-28] VITALS: BP 112/65
[2019-08-28 06:25] LABS: BASOPHILS 0 % (0-2); EOSINOPHILS 1.6 % (0-7); IMMATURE GRANULOCYTES 0.5 % (0-5); LYMPHOCYTES 13.8 % (15-50); MCH 27.4 pg (26.0-34.0); MCHC 33.4 g/dL (31.0-37.0); MCV 82.1 fL (80.0-100.0); MEAN PLATELET VOLUME 10.6 fL (7.4-10.4); MONOCYTES 11.1 % (2-11); RDW 19.4 % (11.5-14.5)
[2019-08-28 06:26] LABS: HEMATOCRIT 41.6 % (42.0-54.0); HEMOGLOBIN 13.9 g/dL (13.5-17.5); PLATELET COUNT 148 10x3/uL (130-400); RBC 5.07 10x6/uL (4.20-6.10); WBC 3.8 10x3/uL (4.8-10.8)
[2019-08-28 06:32] LABS: ALBUMIN 2.2 g/dL (3.4-5.0); ALKALINE PHOSPHATASE 775 U/L (46-116); BILIRUBIN - DIRECT 9.45 mg/dL (0.00-0.30); BILIRUBIN - INDIRECT 1.04 mg/dL (0.00-1.00); BILIRUBIN - TOTAL 10.49 mg/dL (0.2-1.3); CALCIUM 8.4 mg/dL (8.5-10.1); CARBON DIOXIDE 27.6 mmol/L (21.0-32.0); CHLORIDE - SERUM 101 mmol/L (98-107); CREATININE - SERUM 0.5 mg/dL (0.6-1.3); GLUCOSE 135 mg/dL (74-106); MAGNESIUM - SERUM 1.6 mg/dL (1.8-2.4); PROTEIN - SERUM 5.9 g/dL (6.4-8.2); SODIUM 137 mmol/L (136-145); eGFR NON AFRICAN AMERICAN > 90 mL/min (90-120)
[2019-08-28 06:33] LABS: ALT (SGPT) 132 U/L (10-68); CALC OSMOLALITY 272 mosm/kg (275-300); UREA NITROGEN 3 mg/dL (7-18)
[2019-08-28 06:38] LABS: INR 1.7 (0.85-1.17); PROTIME 19.4 SECONDS (11.6-15.0)
[2019-08-28 08:46] VITALS: BP 122/62
--- NOTE | 2019-08-28 11:58 | MORECARE ---
CASE MANAGEMENT DISCHARGE SUMMARY PATIENT: DARA TOMPKINS UNIT: [id number] ADM DATE: 08/25/19 AGE: 49 : 70 SEX: M ROOM/BED: D.2206 AUTHOR: CATARINODOC PHYSICIAN: REFERRING PHYSICIAN: MARYAM GONZALEZ MD DATE OF SERVICE: 08/28/19 Discharge Plan Patient Name: DARA TOMPKINS Facility: [facility]:[place] : 1970 Planned Disposition: [facility] Facility Anticipated Discharge Date: Discharge Date: Expected LOS: Initial Reviewer: [email or web address] Initial Review Date: 08/25/2019 Generated: 08/28/19 12:58 pm Comments DCP- Discharge Planning Updated by [id number]: Angelika Gale on 08/27/19 12:[address] Patient Name: DARA TOMPKINS Admission Status: ER Accout number: [id number] Admission Date: 08-25-2019 : 1970 Admission Diagnosis: Attending: MARYAM GONZALEZ Current LOS: 2 Anticipated DC Date: Planned Disposition: [facility] Facility Primary Insurance: MEDICARE A & B Discharge Planning Comments: CM met with patient to complete initial dc planning assessment. CM educated patient on the CM role and verbal consent given by patient to complete assessment. Patient lives either with his son or in his car. At discharge patient would like to go to [facility] for skilled and feels this is a safe discharge. CM discussed availability of home health, rehab services, and medical equipment. He stated that most of his DME is in a storage building at [facility] ( stella, [employer], [place]). He has portable O2 from [employer] that plugs into his care cigarette harbor boat pilot. Rupesh for [facility]. He stated that his care is in the parking lot at the hospital. He has a cane here in [place]. Patient denied known discharge needs at this time. CM will continue to follow and will assist as needed with dc plans/needs. Butter Maker: Angelika Gale DCPIA - Discharge Planning Initial Assessment Updated by [email or web address]: Angelika Gale on 08/27/19 1:15 pm * Is the patient Alert and Oriented? Yes * How many steps to enter\exit or inside your home? * PCP FLOYD * Pharmacy [facility] * Preadmission Environment Home with Family * ADLs Independent * Equipment Cane Oxygen * Other Equipment IN STORAGE @ [facility] * List name and contact numbers for known caregivers / representatives who currently or will assist patient after discharge: AILYN (SON) [phone] * Verbal permission to speak to the caregivers and representatives has been obtained from the patient. N/A * Community resources currently utilized Other * Additional services required to return to the preadmission environment? Yes * Has this patient been hospitalized within the prior 30 days at any hospital? Yes External Providers External Provider: [facility] Next Contact Date: Service Request Date: Service Type: Resolution: Reviewer: Comments: Coverage Notice Reviewer: [email or web address] Fran Gale Notice Issued Date-Time: 08/27/2019 8:30 Notice Type: Patient Choice Letter Notice Delivered To: Patient Relationship to Patient: Sheep And Wheat Farmer Name: Delivery Method: HAND - Hand Delivered Naomi Days: Prior Verbal Notification: Recipient Understood Notice: Yes Recipient Signature: Yes Med Rec Note Co-signed by Attending: Coverage Notice Comment: rupesh for [facility] Last DP export: 08/27/19 12:24 Patient Name: DARA TOMPKINS Page 67193 at 1158 All edits/amendments must be made on the electronic document DICTATION DATE: 08/28/19 115 SPORTS COMPLEX ATTENDANT: KEYANNA 08/28/19 1158 RPT#: [id number] DC DATE: STATUS: ADM IN [facility] [address] [place] [address] END OF REPORT
[2019-08-28 12:38] VITALS: BP 118/80
[2019-08-28 14:49] VITALS: BP 113/68
--- NOTE | 2019-08-28 17:14 | MORECARE ---
CASE MANAGEMENT DISCHARGE SUMMARY PATIENT: DARA TOMPKINS UNIT: [id number] ADM DATE: 08/25/19 AGE: 49 : 70 SEX: M ROOM/BED: D.2206 AUTHOR: CATARINO,DOC PHYSICIAN: REFERRING PHYSICIAN: MARYAM GONZALEZ MD DATE OF SERVICE: 08/28/19 Discharge Plan Patient Name: DARA TOMPKINS Facility: [facility]:[place] : 1970 Planned Disposition: Care Home Facility Anticipated Discharge Date: Discharge Date: Expected LOS: Initial Reviewer: [email or web address] Initial Review Date: 08/25/2019 Generated: 08/28/19 6:13 pm Comments DCP- Discharge Planning Updated by [email or web address]: Angelika Gale on 08/28/19 4:[address] DARA WITH [facility] HAS SEEN THE PATIENT AND HAS ACCEPTED HIM WHEN HE IS READY TO BE DISCHARGED DCP- Discharge Planning Updated by [email or web address]: Angelika Gale on 08/27/19 12:[address] Patient Name: DARA TOMPKINS Admission Status: ER Accout number: [id number] Admission Date: 08-25-2019 : 1970 Admission Diagnosis: Attending: MARYAM GONZALEZ Current LOS: 2 Anticipated DC Date: Planned Disposition: Care Home Facility Primary Insurance: MEDICARE A & B Discharge Planning Comments: CM met with patient to complete initial dc planning assessment. CM educated patient on the CM role and verbal consent given by patient to complete assessment. Patient lives either with his son or in his car. At discharge patient would like to go to [facility] for skilled and feels this is a safe discharge. CM discussed availability of home health, rehab services, and medical equipment. He stated that most of his DME is in a storage building at [facility] ( BENITO liang, [place]). He has portable O2 from [employer] that plugs into his care cigarette practical nursing faculty. Rupesh for [facility]. He stated that his care is in the parking lot at the hospital. He has a cane here in [place]. Patient denied known discharge needs at this time. CM will continue to follow and will assist as needed with dc plans/needs. Aircraft Sheet Metal Mechanic: Angelika Shahla DCPIA - Discharge Planning Initial Assessment Updated by [email or web address]: Angelika Gale on 08/27/19 1:15 pm * Is the patient Alert and Oriented? Yes * How many steps to enter\exit or inside your home? * PCP FLOYD * Pharmacy [facility] * Preadmission Environment Home with Family * ADLs Independent * Equipment Cane Oxygen * Other Equipment IN STORAGE @ [place] [facility] [employer] * List name and contact numbers for known caregivers / representatives who currently or will assist patient after discharge: AILYN (SON) [phone] * Verbal permission to speak to the caregivers and representatives has been obtained from the patient. N/A * Community resources currently utilized Other * Additional services required to return to the preadmission environment? Yes * Has this patient been hospitalized within the prior 30 days at any hospital? Yes Coverage Notice Reviewer: [id number] - Angelika Gale Notice Issued Date-Time: 08/27/2019 8:30 Notice Type: Patient Choice Letter Notice Delivered To: Patient Relationship to Patient: Certified Registered Locksmith Name: Delivery Method: HAND - Hand Delivered Naomi Days: Prior Verbal Notification: Recipient Understood Notice: Yes Recipient Signature: Yes Med Rec Note Co-signed by Attending: Coverage Notice Comment: rupesh for [facility] DP export: 08/28/19 10:58 Patient Name: DARA TOMPKINS Page 48156 at 1714 All edits/amendments must be made on the electronic document DICTATION DATE: 08/28/191712 SALES ENGINEER ENGINEERED PRODUCTS: KEYANNA 08/28/191712 RPT#: [id number] DC DATE: STATUS: ADM IN [facility] [address] [place] [address] END OF REPORT
--- NOTE | 2019-08-28 18:49 | NUR ---
VOIDED 500CC OF ANDREA COLORED URINE IN PACU.
[2019-08-28 18:59] VITALS: BP 122/74
[2019-08-28 20:00] VITALS: BP 118/79
[2019-08-29] VITALS: BP 91/56
--- NOTE | 2019-08-29 03:45 | NUR ---
ALERT AND ORENTED ABLE TO VOICE NEEDS AND WANTS TO STAFF. LEFT CHEST PORT WITH NS AT 125, MORPHINE FLOOR TRADER, CALL LIGHT IN REACH NPO AT MID NIGHT. O2 AT 2L PRN. NO S/S OF DISTRESS.
[2019-08-29 04:00] VITALS: BP 111/65
[2019-08-29 07:27] LABS: INR 1.83 (0.85-1.17); PROTIME 20.5 SECONDS (11.6-15.0)
[2019-08-29 07:37] LABS: ALBUMIN 1.9 g/dL (3.4-5.0); ALKALINE PHOSPHATASE 758 U/L (46-116); BILIRUBIN - DIRECT 4.16 mg/dL (0.00-0.30); BILIRUBIN - INDIRECT 0.78 mg/dL (0.00-1.00); BILIRUBIN - TOTAL 4.94 mg/dL (0.2-1.3); CALCIUM 8.1 mg/dL (8.5-10.1); CARBON DIOXIDE 25.4 mmol/L (21.0-32.0); CHLORIDE - SERUM 105 mmol/L (98-107); CREATININE - SERUM 0.5 mg/dL (0.6-1.3); GLUCOSE 131 mg/dL (74-106); POTASSIUM - SERUM 3.1 mmol/L (3.5-5.1); PROTEIN - SERUM 5.8 g/dL (6.4-8.2); SODIUM 141 mmol/L (136-145); eGFR NON AFRICAN AMERICAN > 90 mL/min (90-120)
[2019-08-29 07:38] LABS: UREA NITROGEN 4 mg/dL (7-18)
[2019-08-29 07:39] LABS: ALT (SGPT) 95 U/L (10-68); CALC OSMOLALITY 279 mosm/kg (275-300)
[2019-08-29 08:01] LABS: HEMATOCRIT 27.6 % (42.0-54.0); HEMOGLOBIN 9.1 g/dL (13.5-17.5); LYMPHOCYTES 25.9 % (15-50); MCH 27.7 pg (26.0-34.0); MCV 84.1 fL (80.0-100.0); MEAN PLATELET VOLUME 10.7 fL (7.4-10.4); NEUTROPHILS 64.6 % (40-80); PLATELET COUNT 219 10x3/uL (130-400); RBC 3.28 10x6/uL (4.20-6.10); RDW 21.4 % (11.5-14.5); WBC 4.5 10x3/uL (4.8-10.8)
--- NOTE | 2019-08-29 08:20 | NUR ---
PATIENT RECIVED RESTING WITH NO NEEDS VOICED. RESPIRATIONS REGULAR AND NONLABORED. PAIN TOLERABLE AT THIS TIME. CL IN REACH
[2019-08-29 08:30] VITALS: BP 134/77
--- NOTE | 2019-08-29 17:17 | NUR ---
PATIENT RESTING WITH NO NEEDS VOICED. PAIN TOLERABLE WITH MORPHINE PO. CL IN REACH, DIET ADVANCED TO REGULAR PER DR CHA
[2019-08-29 17:22] VITALS: BP 101/64
--- NOTE | 2019-08-29 17:40 | NUR ---
NOTIFIED BY ICER AIR CONDITIONING THAT PATIENT HAD RUN OF 25 V TACH. ASSESSED PATIENT WITH PALPATED HR 72 AND REGULAR. PATIETN DENIES ANY PALPATITIONS OR ISSUES. PATIENT STATED THAT HE HAD GOTTEN UP AND LEANED OVER TO GET SOMETHING OUT OF HIS BEDSIDE TABLE. WILL CONT TO MONITOR.
[2019-08-29 20:00] VITALS: BP 111/65
[2019-08-30] VITALS: BP 101/58
--- NOTE | 2019-08-30 01:43 | NUR ---
PT RESTING IN BED. EYES CLOSED. NO SIGNS OF DISTRESS. BREATHING EVEN AND UNLABORED. IV SITE LT CHEST PORT DRESSING CLEAN DRY AND INTACT. NO SIGNS OF INFECTION. SKIN COLOR JANDICE. BOWEL SOUNDS ACTIVE. LUNG SOUNDS DIMINISHED IN LOWER LOBES. TELE MONITOR ON 72 SINUS. WILL CONTINUE PLAN OF CARE CALL LIGHT IN REACH. BED LOWERED AND LOCKED. BED RAILS UPX2.
--- NOTE | 2019-08-30 03:55 | NUR ---
I have reviewed this patient and I concur with the Shift Assessment completed by the Licensed Practical Nurse today this shift.
[2019-08-30 04:00] VITALS: BP 103/49
[2019-08-30 06:55] LABS: BASOPHILS 0.2 % (0-2); EOSINOPHILS 2.6 % (0-7); HEMATOCRIT 28.9 % (42.0-54.0); HEMOGLOBIN 9.5 g/dL (13.5-17.5); IMMATURE GRANULOCYTES 0.4 % (0-5); LYMPHOCYTES 32.8 % (15-50); MCH 27.4 pg (26.0-34.0); MCHC 32.9 g/dL (31.0-37.0); MCV 83.3 fL (80.0-100.0); MEAN PLATELET VOLUME 10.3 fL (7.4-10.4); MONOCYTES 13.8 % (2-11); NEUTROPHILS 50.2 % (40-80); RBC 3.47 10x6/uL (4.20-6.10); WBC 4.6 10x3/uL (4.8-10.8)
[2019-08-30 06:56] LABS: PLATELET COUNT 297 10x3/uL (130-400)
[2019-08-30 07:00] LABS: ALKALINE PHOSPHATASE 699 U/L (46-116); ALT (SGPT) 77 U/L (10-68); BILIRUBIN - DIRECT 2.84 mg/dL (0.00-0.30); BILIRUBIN - INDIRECT 0.43 mg/dL (0.00-1.00); BILIRUBIN - TOTAL 3.27 mg/dL (0.2-1.3); CALC OSMOLALITY 275 mosm/kg (275-300); CALCIUM 8.2 mg/dL (8.5-10.1); CARBON DIOXIDE 26.8 mmol/L (21.0-32.0); CHLORIDE - SERUM 103 mmol/L (98-107); CREATININE - SERUM 0.6 mg/dL (0.6-1.3); GLUCOSE 156 mg/dL (74-106); PROTEIN - SERUM 6.2 g/dL (6.4-8.2); SODIUM 138 mmol/L (136-145); UREA NITROGEN 3 mg/dL (7-18); eGFR NON AFRICAN AMERICAN > 90 mL/min (90-120)
--- NOTE | 2019-08-30 08:00 | NUR ---
UPON ENTERING ROOM, PT WAS IN DISTRESS AND TEARFUL. STATED HE JUST FOUND OUT ONE OF HIS CHILDREN HAD PASSED. STATED HE HAD AN APPOINTMENT WITH PCP ON SUNDAY AND JUST NEEDED REFILLS ON HIS MEDICATION TO GO HOME WITH. UPON EXITING ROOM, GIDEON BARONE APN WAS NOTIFIED. PT ALSO STATES HIS FAMILY ATTEMPTED SEVERAL TIMES TO CALL UP HERE TO REACH HIM AND WAS NEVER TRANSFERRED TO HIS ROOM. PT WAS INFORMED ABOUT THE PROCEDURES FOLLOWED WHEN A PT IS UNDER CONFIDENTIAL STATUS. PT IS STILL DISTRUGHT ABOUT MATTER BUT HAS NO FURTHER QUESTIONS AT THIS TIME. PORT ACCESS D/C WITH NEEDLE TIP INTACT. IV ACCESS D/C WITH CATHETER TIP INTACT. MONITOR REMOVED AND RETURNED TO RECOOPERER. WILL GET D/C PAPERWORK TOGETHER GINO.
[2019-08-30 08:19] VITALS: BP 178/74
--- NOTE | 2019-08-30 08:40 | NUR ---
PT LEFT WITH ALL BELONGINGS. REFUSED WHEELCHAIR BUT WAS ESCORTED DOWN TO FRONT ENTRANCE.
--- NOTE | 2019-08-30 08:40 | NUR ---
ATTEMPTED D/C INSTRUCTIONS REVIEW AND PT STATED HE WOULD LOOK AT IT WHEN HE GOT HOME.
--- NOTE | 2019-08-30 15:25 | MORECARE ---
CASE MANAGEMENT DISCHARGE SUMMARY PATIENT: DARA TOMPKINS UNIT: [id number] ADM DATE: 08/25/19 AGE: 49 : 70 SEX: M ROOM/BED: D.2206 AUTHOR: CATARINODOC PHYSICIAN: REFERRING PHYSICIAN: MARYAM GONZALEZ MD DATE OF SERVICE: 08/30/19 Discharge Plan Patient Name: DARA TOMPKINS Facility: [facility]:[place] : 1970 Planned Disposition: Senior Living Facility Anticipated Discharge Date: Discharge Date: 08/30/2019 Expected LOS: Initial Reviewer: [email or web address] Initial Review Date: 08/25/2019 Generated: 08/30/19 4:24 pm Comments DCP- Discharge Planning Updated by [email or web address]: Angelika Gale on 08/28/19 4:[address] DARA WITH [facility] HAS SEEN THE PATIENT AND HAS ACCEPTED HIM WHEN HE IS READY TO BE DISCHARGED DCP- Discharge Planning Updated by [email or web address]: Angelika Gale on 08/27/19 12:[address] Patient Name: DARA TOMPKINS Admission Status: ER Accout number: [id number] Admission Date: 08-25-2019 : 1970 Admission Diagnosis: Attending: MARYAM GONZALEZ Current LOS: 2 Anticipated DC Date: Planned Disposition: Senior Living Facility Primary Insurance: MEDICARE A & B Discharge Planning Comments: CM met with patient to complete initial dc planning assessment. CM educated patient on the CM role and verbal consent given by patient to complete assessment. Patient lives either with his son or in his car. At discharge patient would like to go to [facility] for skilled and feels this is a safe discharge. CM discussed availability of home health, rehab services, and medical equipment. He stated that most of his DME is in a storage building at [facility] ( [place]EN[place]O liang, [place]). He has portable O2 from [employer] that plugs into his care cigarette bench assembler. Rupesh for [facility]. He stated that his care is in the parking lot at the hospital. He has a cane here in [place]. Patient denied known discharge needs at this time. CM will continue to follow and will assist as needed with dc plans/needs. Editor Book: Angelika Gale DCPIA - Discharge Planning Initial Assessment Updated by [email or web address]: Angelika Gale on 08/27/19 1:15 pm * Is the patient Alert and Oriented? Yes * How many steps to enter\exit or inside your home? * PCP FLOYD * Pharmacy [facility] * Preadmission Environment Home with Family * ADLs Independent * Equipment Cane Oxygen * Other Equipment IN STORAGE @ [facility] [employer] * List name and contact numbers for known caregivers / representatives who currently or will assist patient after discharge: AILYN (SON) [phone] * Verbal permission to speak to the caregivers and representatives has been obtained from the patient. N/A * Community resources currently utilized Other * Additional services required to return to the preadmission environment? Yes * Has this patient been hospitalized within the prior 30 days at any hospital? Yes Coverage Notice Reviewer: [id number] - Angelika Gale Notice Issued Date-Time: 08/27/2019 8:30 Notice Type: Patient Choice Letter Notice Delivered To: Patient Relationship to Patient: Director Software Quality Assurance Name: Delivery Method: HAND - Hand Delivered Naomi Days: Prior Verbal Notification: Recipient Understood Notice: Yes Recipient Signature: Yes Med Rec Note Co-signed by Attending: Coverage Notice Comment: rupesh for [facility] DP export: 08/28/19 4:14 Patient Name: DARA TOMPKINS Page [phone] at 1525 All edits/amendments must be made on the electronic document DICTATION DATE: 08/30/191523 SOFTWARE VALIDATION TECHNICIAN: KEYANNA 08/30/19 152 RPT#: [id number] DC DATE:08/30/19 STATUS: DIS IN [facility] [address] [place] [address] END OF REPORT
== END 2019-08-30 10:32 | disposition home or self-care (01) | DRG 444 ==
LOC: D.ER 15:12 → D.MS 19:30
PROVIDERS: Family Medicine; Internal Medicine Gastroenterology; ADMIT Legal Medicine; ATTEND Legal Medicine
PROC: 0F758DZ Dilation of Right Hepatic Duct with Intraluminal Device, Via Natural or Artificial Opening Endoscopic (ICD-10-PCS; 2019-08-28)
PROC: 0FBC8ZX Excision of Ampulla of Vater, Via Natural or Artificial Opening Endoscopic, Diagnostic (ICD-10-PCS; 2019-08-28)
PROC: 0DB98ZX Excision of Duodenum, Via Natural or Artificial Opening Endoscopic, Diagnostic (ICD-10-PCS; 2019-08-28)
PROC: 0FPB8DZ Removal of Intraluminal Device from Hepatobiliary Duct, Via Natural or Artificial Opening Endoscopic (ICD-10-PCS; principal; 2019-08-28 17:41)
DX: K83.1 Obstruction of bile duct (principal); I21.4 Non-ST elevation (NSTEMI) myocardial infarction; C78.89 Secondary malignant neoplasm of other digestive organs; C25.9 Malignant neoplasm of pancreas, unspecified; E87.6 Hypokalemia; D72.829 Elevated white blood cell count, unspecified; I10 Essential (primary) hypertension; J44.9 Chronic obstructive pulmonary disease, unspecified; E11.9 Type 2 diabetes mellitus without complications; K21.9 Gastro-esophageal reflux disease without esophagitis; Z79.01 Long term (current) use of anticoagulants

== ENCOUNTER 2019-08-31 02:34 | Inpatient (IN) | payer MEDICARE ==
[~2019-08-31] VITALS: Ht 180.3 cm; Wt 107.3 kg
[2019-08-31 03:14] LABS: BASOPHILS 0.2 % (0-2); EOSINOPHILS 1.7 % (0-7); IMMATURE GRANULOCYTES 0.8 % (0-5); LYMPHOCYTES 29.7 % (15-50); MCH 28.2 pg (26.0-34.0); MCHC 33.4 g/dL (31.0-37.0); MCV 84.2 fL (80.0-100.0); MEAN PLATELET VOLUME 9.9 fL (7.4-10.4); MONOCYTES 16.3 % (2-11); NEUTROPHILS 51.3 % (40-80); RDW 19.6 % (11.5-14.5)
[2019-08-31 03:15] LABS: HEMATOCRIT 35.3 % (42.0-54.0); HEMOGLOBIN 11.8 g/dL (13.5-17.5); PLATELET COUNT 396 10x3/uL (130-400); RBC 4.19 10x6/uL (4.20-6.10); WBC 9.8 10x3/uL (4.8-10.8)
[2019-08-31 03:20] LABS: CALC OSMOLALITY 273 mosm/kg (275-300); CALCIUM 9.9 mg/dL (8.5-10.1); CARBON DIOXIDE 26.6 mmol/L (21.0-32.0); CHLORIDE - SERUM 99 mmol/L (98-107); GLUCOSE 149 mg/dL (74-106); SODIUM 137 mmol/L (136-145); UREA NITROGEN 3 mg/dL (7-18)
[2019-08-31 03:21] LABS: APTT 31.4 SECONDS (22.8-39.4); CREATININE - SERUM 0.8 mg/dL (0.6-1.3); INR 1.41 (0.85-1.17); POTASSIUM - SERUM 3.6 mmol/L (3.5-5.1); PROTIME 16.7 SECONDS (11.6-15.0); eGFR NON AFRICAN AMERICAN > 90 mL/min (90-120)
--- NOTE | 2019-08-31 03:22 | NUR ---
PT CONTINUES TO BE AGITATED, VERBAL ORDER FOR HALDOL 5MG GIVEN BY JAYLA GOMEZ.
[2019-08-31 03:36] LABS: UDS - AMPHET NEGATIVE QUAL (NEGATIVE); UDS - BARB NEGATIVE QUAL (NEGATIVE); UDS - BENZO NEGATIVE QUAL (NEGATIVE); UDS - COCAINE NEGATIVE QUAL (NEGATIVE); UDS - OPIATE POSITIVE QUAL (NEGATIVE); UDS - PCP NEGATIVE QUAL (NEGATIVE); UDS - THC NEGATIVE QUAL (NEGATIVE)
[2019-08-31 03:38] LABS: ALBUMIN 2.9 g/dL (3.4-5.0); ALKALINE PHOSPHATASE 850 U/L (46-116); ALT (SGPT) 86 U/L (10-68); BILIRUBIN - TOTAL 3.84 mg/dL (0.2-1.3); CREATINE KINASE 151 UL (21-232); LIPASE 148 U/L (73-393); MAGNESIUM - SERUM 1.5 mg/dL (1.8-2.4); PRO BNP 265 pg/mL (0-125); PROTEIN - SERUM 8.2 g/dL (6.4-8.2); THYROID STIMULATING HORMONE 1.25 uIU/mL (0.36-3.74); TROPONIN-I < 0.017 ng/mL (0.000-0.060)
[2019-08-31 03:38] LABS: APPEARANCE CLEAR (CLEAR); BILIRUBIN NEGATIVE (NEGATIVE); COLOR YELLOW (YELLOW); GLUCOSE NEGATIVE (NEGATIVE); KETONE NEGATIVE (NEGATIVE); NITRITE NEGATIVE (NEGATIVE); PROTEIN NEGATIVE (NEGATIVE); SPECIFIC GRAVITY 1.005 (1.005-1.020); UROBILINOGEN NORMAL (NORMAL)
[2019-08-31 03:42] VITALS: BP 131/88
--- NOTE | 2019-08-31 03:51 | NUR ---
PT SLEEPING ON BED. VS WNL.
[2019-08-31 04:00] VITALS: BP 153/82
--- NOTE | 2019-08-31 04:24 | NUR ---
PT LEFT ED VIA STRETCHER FOR CT. PT AWAKE AND ALERT AT THIS TIME.
--- NOTE | 2019-08-31 04:36 | NUR ---
PT RETURNED FROM CT VIA STRETCHER.
--- NOTE | 2019-08-31 04:40 | NUR ---
PT HAD NORCO 10/325 IN POSSESSION AT TIME OF ARRIVAL. NARCOTIC WAS COUNTED, WITNESSED, AND PLACED IN ED PYXIS FOR PHARMACY GRADER MARKER.
--- NOTE | 2019-08-31 05:14 | NUR ---
RECEIVED TO ROOM. AWAKE,ALERT WITH SOME CONFUSION NOTED. RESP EVEN AND ULABORED. O2 @ 2L PER NC ON. NO DISTRESS NOTED. IV TO RFA INTACT WITHOUT REDNESS OR EDEMA NOTED. CL IN REACH
[2019-08-31 05:48] VITALS: BP 166/77; Ht 180.3 cm; Wt 107.3 kg
[2019-08-31 08:45] VITALS: BP 110/50
--- NOTE | 2019-08-31 08:48 | NUR ---
PATIENT RECIEVED FROM PREVIOUS SHIFT RESTING WITH EYES CLOSED, AROUSED EASILY. PLEASENT AND COOPERATIVE. CL IN REACH
--- NOTE | 2019-08-31 11:55 | MORECARE ---
CASE MANAGEMENT DISCHARGE SUMMARY PATIENT: DARA TOMPKINS UNIT: [id number] ADM DATE: 08/31/19 AGE: 49 : 70 SEX: M ROOM/BED: D.2204 AUTHOR: ANOOP TORIBIO PHYSICIAN: REFERRING PHYSICIAN: MARYAM GONZALEZ MD DATE OF SERVICE: 08/31/19 Discharge Plan Patient Name: DARA TOMPKINS [facility] : 1970 Planned Disposition: Anticipated Discharge Date: Discharge Date: Expected LOS: Initial Reviewer: [email or web address] Initial Review Date: 08/31/2019 Generated: 08/31/19 12:55 pm Patient Name: DARA TOMPKINS Page [phone] at 1155 All edits/amendments must be made on the electronic document DICTATION DATE: 08/31/19 1155 SEAMARK ADVANCED OPERATOR MAINTAINER: KEYANNA 08/31/19 1155 RPT#: [id number] DC DATE: STATUS: ADM IN [facility] [address] [place] [address] END OF REPORT
--- NOTE | 2019-08-31 12:02 | MORECARE ---
CASE MANAGEMENT DISCHARGE SUMMARY PATIENT: DARA TOMPKINS UNIT: [id number] ADM DATE: 08/31/19 AGE: 49 : 70 SEX: M ROOM/BED: D.2204 AUTHOR: ANOOP TORIBIO PHYSICIAN: REFERRING PHYSICIAN: MARYAM GONZALEZ MD DATE OF SERVICE: 08/31/19 Discharge Plan Patient Name: DARA TOMPKINS Facility: [facility]:[place] : 1970 Planned Disposition: Anticipated Discharge Date: Discharge Date: Expected LOS: Initial Reviewer: [email or web address] Initial Review Date: 08/31/2019 Generated: 08/31/19 1:01 pm Comments DCP- Discharge Planning Updated by [email or web address]: Monica Caldwell on 08/31/19 10:[address] Patient Name: DARA TOMPKINS Admission Status: ER Accout number: [id number] Admission Date: 08-31-2019 : 1970 Admission Diagnosis: Attending: MARYAM GONZALEZ Current LOS: 1 Anticipated DC Date: Planned Disposition: Primary Insurance: MEDICARE A & B Discharge Planning Comments: CM met with patient at bedside after explaining CM role and obtaining verbal consent. PATIENT STATES HIS FRIEND IS PICKING HIM UP TODAY AND HE IS GOING TO [place] TODAY, THEN HE WILL GO TO [facility] TO MEET WITH SOMEONE TOMORROW. STATES NO NEEDS AT THIS TIME. Manufacturing Coordinator: Monica Caldwell Last DP export: 08/31/19 10:55 Patient Name: DARA TOMPKINS Page [phone] at 1202 All edits/amendments must be made on the electronic document DICTATION DATE: 08/31/19 1201 HOT WIRE GLASS TUBE CUTTER: KEYANNA 08/31/19 1201 RPT#: [id number] DC DATE: STATUS: ADM IN [facility] [address] [place] [address] END OF REPORT
--- NOTE | 2019-08-31 12:34 | NUR ---
PATIENT ORIENTED X4, NO ALTERED LOC, AND REQUEST TO BE DISCHARGED TODAY. IV REMOVED WITH NO REDNESS OR EDEMA AT SITE. O2 SAT 99% ON RA, DISCHARGE INSTRUCTIONS GIVEN WITH PATIENT VOICING UNDERSTANDING. PATIENT REQUESTED TO AMBULATE TO PRIVATE CAR FOR FRIEND TO MATH AND SCIENCE INSTRUCTOR. AMBULATED WITH PATIENT TO ER TO MATH AND SCIENCE INSTRUCTOR PERSONAL BOTTLE OF NARCOTIC FROM ER LOCK UP
--- NOTE | 2019-08-31 14:30 | MORECARE ---
CASE MANAGEMENT DISCHARGE SUMMARY PATIENT: DARA TOMPKINS UNIT: [id number] ADM DATE: 08/31/19 AGE: 49 : 70 SEX: M ROOM/BED: D.2204 AUTHOR: ANOOP TORIBIO PHYSICIAN: REFERRING PHYSICIAN: MARYAM GONZALEZ MD DATE OF SERVICE: 08/31/19 Discharge Plan Patient Name: DARA OTMPKINS Facility: [facility]:[place] : 1970 Planned Disposition: Home or Self Care Anticipated Discharge Date: Discharge Date: 08/31/2019 Expected LOS: Initial Reviewer: [email or web address] Initial Review Date: 08/31/2019 Generated: 08/31/19 3:29 pm Comments DCP- Discharge Planning Updated by [email or web address]: Monica Caldwell on 08/31/19 10:[address] Patient Name: DARA TOMPKINS Admission Status: ER Accout number: [id number] Admission Date: 08-31-2019 : 1970 Admission Diagnosis: Attending: MARYAM GONZALEZ Current LOS: 1 Anticipated DC Date: Planned Disposition: Primary Insurance: MEDICARE A & B Discharge Planning Comments: CM met with patient at bedside after explaining CM role and obtaining verbal consent. PATIENT STATES HIS FRIEND IS PICKING HIM UP TODAY AND HE IS GOING TO [place] TODAY, THEN HE WILL GO TO [facility] TO MEET WITH SOMEONE TOMORROW. STATES NO NEEDS AT THIS TIME. Membership Manager: Monica Caldwell Last DP export: 08/31/19 11:02 Patient Name: DARA TOMPKINS Page [phone] at 1430 All edits/amendments must be made on the electronic document DICTATION DATE: 08/31/191428 PHOTO PRODUCER: KEYANNA 08/31/19 142 RPT#: [id number] DC DATE:08/31/19 STATUS: DIS IN [facility] [address] [place] [address] END OF REPORT
--- NOTE | 2019-08-31 14:37 | MORECARE ---
CASE MANAGEMENT DISCHARGE SUMMARY PATIENT: DARA TOMPKINS UNIT: [id number] ADM DATE: 08/31/19 AGE: 49 : 70 SEX: M ROOM/BED: D.2204 AUTHOR: ANOOP TORIBIO PHYSICIAN: REFERRING PHYSICIAN: MARYAM GONZALEZ MD DATE OF SERVICE: 08/31/19 Discharge Plan Patient Name: DARA TOMPKINS Facility: [facility]:[place] : 1970 Planned Disposition: Home or Self Care Anticipated Discharge Date: Discharge Date: 08/31/2019 Expected LOS: Initial Reviewer: [email or web address] Initial Review Date: 08/31/2019 Generated: 08/31/19 3:37 pm Comments DCP- Discharge Planning Updated by [email or web address]: Monica Caldwell on 08/31/19 10:[address] Patient Name: DARA TOMPKINS Admission Status: ER Accout number: [id number] Admission Date: 08-31-2019 : 1970 Admission Diagnosis: Attending: MARYAM GONZALEZ Current LOS: 1 Anticipated DC Date: Planned Disposition: Primary Insurance: MEDICARE A & B Discharge Planning Comments: CM met with patient at bedside after explaining CM role and obtaining verbal consent. PATIENT STATES HIS FRIEND IS PICKING HIM UP TODAY AND HE IS GOING TO [place] TODAY, THEN HE WILL GO TO [facility] TO MEET WITH SOMEONE TOMORROW. STATES NO NEEDS AT THIS TIME. Associate Curator: Monica Caldwell Last DP export: 08/31/19 1:30 Patient Name: DARA TOMPKINS Page [phone] at 1437 All edits/amendments must be made on the electronic document DICTATION DATE: 08/31/19 1437 PHOTOVOLTAIC INSTALLER: KEYANNA 08/31/19 1437 RPT#: [id number] DC DATE:08/31/19 STATUS: DIS IN [facility] [address] [place] [address] END OF REPORT
--- NOTE | 2019-09-02 11:05 | NUR ---
Patient with a DX of AMS has asked to sign out AMADavid APN was notified and questioned about his mental status if he is ok to sign himself out, No new orders received. Patient has called 911 for the police to take him home. Shelly Liang RN notified of the above and his hx. I am unsure if he is OK to make decisions for himself. I will call [facility] AND FILE A REPORT
== END 2019-08-31 12:39 | disposition home or self-care (01) | DRG 948 ==
LOC: D.ER 02:34 → D.MS 03:57
PROVIDERS: Family Medicine; ADMIT Legal Medicine; ATTEND Legal Medicine
DX: R41.82 Altered mental status, unspecified (principal); C25.9 Malignant neoplasm of pancreas, unspecified

== ENCOUNTER 2019-09-01 23:31 | Observation (INO) | payer MEDICARE ==
[~2019-09-01] VITALS: Ht 180.3 cm; Wt 109.1 kg
[2019-09-01 23:56] VITALS: BP 141/97
--- NOTE | 2019-09-02 00:17 | NUR ---
PT LEFT ED VIA STRETCHER FOR CT.
[2019-09-02 00:30] LABS: BASOPHILS 0.4 % (0-2); EOSINOPHILS 1.6 % (0-7); HEMATOCRIT 30.6 % (42.0-54.0); HEMOGLOBIN 10.1 g/dL (13.5-17.5); IMMATURE GRANULOCYTES 0.8 % (0-5); LYMPHOCYTES 31.4 % (15-50); MCH 27.9 pg (26.0-34.0); MCV 84.5 fL (80.0-100.0); MONOCYTES 18.2 % (2-11); NEUTROPHILS 47.6 % (40-80); PLATELET COUNT 414 10x3/uL (130-400); RBC 3.62 10x6/uL (4.20-6.10); WBC 7.7 10x3/uL (4.8-10.8)
[2019-09-02 00:45] LABS: ALBUMIN 2.7 g/dL (3.4-5.0); ALKALINE PHOSPHATASE 569 U/L (46-116); BILIRUBIN - TOTAL 2.74 mg/dL (0.2-1.3); CALCIUM 9.4 mg/dL (8.5-10.1); CARBON DIOXIDE 29.9 mmol/L (21.0-32.0); CHLORIDE - SERUM 99 mmol/L (98-107); CKMB 1.3 U/L (0.0-3.6); CREATINE KINASE 159 UL (21-232); CREATININE - SERUM 0.7 mg/dL (0.6-1.3); GLUCOSE 180 mg/dL (74-106); PROTEIN - SERUM 7.1 g/dL (6.4-8.2); SODIUM 136 mmol/L (136-145); TROPONIN-I 0.023 ng/mL (0.000-0.060); eGFR NON AFRICAN AMERICAN > 90 mL/min (90-120)
--- NOTE | 2019-09-02 00:55 | NUR ---
PT RETURNED FROM CT VIA STRETCHER.
[2019-09-02 01:00] VITALS: BP 122/98
[2019-09-02 01:00] LABS: CALC OSMOLALITY 275 mosm/kg (275-300); UREA NITROGEN 9 mg/dL (7-18)
[2019-09-02 01:02] LABS: ALT (SGPT) 58 U/L (10-68); POTASSIUM - SERUM 2.8 mmol/L (3.5-5.1)
--- NOTE | 2019-09-02 02:18 | NUR ---
KNEE IMMOBILIZER PLACED ON R KNEE. PT TOLERATED WELL. CAP REFILL <3 SECONDS, COLOR WNL
--- NOTE | 2019-09-02 02:54 | NUR ---
REC'D TO ROOM 2214 FROM ER DEPT PER STRETCHER A 49 Y/O W/M PER SERVICES DR. GONZALEZ WITH HYPOKALEMIA AND PANCREATIC CANCER. NKDA IV PATENT RT ARM WITH NS AT GRAVITY ALONG WITH K+RIDER. ASSESSMENT PER ADMIT PACKET.
[2019-09-02 03:22] VITALS: BP 144/94; BMI 33.5
--- NOTE | 2019-09-02 03:45 | NUR ---
PT ATTEMPTING TO LEAVE STATES HE KNOWS HIS RIGHTS AND WE CAN'T MAKE HIS STAY. PT VERY CONFUSED. TRYING SEVEREL TIMES TO CLIMB OVER SIDE RAILS. YELLING OUT AND CUZZING AT THE STAFF. ATTEMPT TO CALL DILIP BOONE LEFT MESSAGE ON HIS ANSWERING MACHINE.
--- NOTE | 2019-09-02 03:50 | NUR ---
ATTEMPT AGAIN TO CALL DILIP BOONE AND CALLED 'S ANSWERING SERVICE. NO RETURN CALL.
--- NOTE | 2019-09-02 04:00 | NUR ---
NOTIFIED THI RN SWITCH REPAIRER. SHE CALLED ER DEPT TO VERIFY DILIP'S NUMBER. ANOTHER CALL WAS PLACED TO DILIP. NO ANSWER. THI HERE ON FLOOR SECURITY WAS ALSO CALLED PATIENT BECOMING PHYSICAL WITH STAFF AND YELLING HE IS GOING TO LEAVE.
--- NOTE | 2019-09-02 04:01 | NUR ---
PATIENT COMBATIVE. SECURITY IN ROOM. PATIENT THREATENING ALL STAFF MEMBERS. CALLED HS AND WAS INSTRUCTED TO CALL DOCTOR. PAGED GIDEON FROM DR. GONZALEZ'S OFFICE. WAITING FOR RETURN CALL.
--- NOTE | 2019-09-02 04:30 | NUR ---
NOTIFIED DR. GONZALEZ AT HOME EXPLAINED UNABLE TO CONTACT DILIP AND PT'S BEHAVIOR ORDERS REC'D.
--- NOTE | 2019-09-02 04:45 | NUR ---
MALE STAFF X3 HERE TO HELP GIVE MED. HALDOL 2MG IM GIVEN AND ATIVAN 1 MG IVP GIVEN FOR ANXIETY/AGGITATION.
--- NOTE | 2019-09-02 05:00 | NUR ---
PATIENT STARTING TO CALM DOWN
--- NOTE | 2019-09-02 06:15 | NUR ---
EYES CLOSED RESPIRATIONS WITH EASE AND UNLABORED.
[2019-09-02 07:59] VITALS: Ht 180.3 cm; Wt 109.1 kg
[2019-09-02 08:24] VITALS: BP 143/93
--- NOTE | 2019-09-02 08:30 | NUR ---
PATIENT GETTING DRESSED AND STATES "IM GOING HOME." TALKED WITH PATIENT AND PATIENT AGREES AT THIS TIME TO TAKE MEDICATIONS AND REST. HAYDEN MENESES NOTIFIED. HAYDEN STATES "HE CAN LEAVE AMA." WENT IN ROOM TO GIVE PATIENT MEDICATIONS. PATIENT SLEEPING. WILL ATTEMPT AGAIN. .
--- NOTE | 2019-09-02 10:07 | NUR ---
PT IS WALKING IN NUR AND SAYS HE IS GOING HOME.IV DCD AND PT SIGNED AMA FORM
--- NOTE | 2019-09-02 10:15 | NUR ---
PATIENT LEFT AMA. HAYDEN MENESES NOTIFIED.
--- NOTE | 2019-09-02 10:23 | NUR ---
CSSTARS FORM COMPLETED PER DIRECTOR STERILE PROCESSING.
--- NOTE | 2019-09-02 11:21 | NUR ---
[facility] CALLED AND REPORT MADE CASE # [id number]
== END 2019-09-02 10:24 | disposition left against medical advice (07) ==
LOC: D.ER 23:31 → OBSVTIME 09-02 02:02 → D.MS 09-02 02:02
PROVIDERS: Family Medicine; ADMIT Legal Medicine; ATTEND Legal Medicine
DX: E87.6 Hypokalemia (principal); M25.661 Stiffness of right knee, not elsewhere classified; W18.30XA Fall on same level, unspecified, initial encounter; C25.9 Malignant neoplasm of pancreas, unspecified

== ENCOUNTER 2019-09-07 01:18 | Emergency (ER) | payer MEDICARE ==
[~2019-09-07] VITALS: Ht 180.3 cm; Wt 74.8 kg
[2019-09-07 01:22] VITALS: Ht 180.3 cm; Wt 74.8 kg
[2019-09-07 01:54] LABS: BASOPHILS 0.5 % (0-2); EOSINOPHILS 4.1 % (0-7); HEMATOCRIT 32.1 % (42.0-54.0); HEMOGLOBIN 10.5 g/dL (13.5-17.5); IMMATURE GRANULOCYTES 0.2 % (0-5); LYMPHOCYTES 26.9 % (15-50); MCH 28.4 pg (26.0-34.0); MCHC 32.7 g/dL (31.0-37.0); MCV 86.8 fL (80.0-100.0); MEAN PLATELET VOLUME 9.2 fL (7.4-10.4); MONOCYTES 6.6 % (2-11); NEUTROPHILS 61.7 % (40-80); PLATELET COUNT 388 10x3/uL (130-400); RDW 19.4 % (11.5-14.5); WBC 8.6 10x3/uL (4.8-10.8)
[2019-09-07 02:16] LABS: APTT 29.6 SECONDS (22.8-39.4); INR 1.04 (0.85-1.17); PROTIME 13.1 SECONDS (11.6-15.0)
[2019-09-07 02:31] LABS: ALBUMIN 2.6 g/dL (3.4-5.0); ALKALINE PHOSPHATASE 487 U/L (46-116); ALT (SGPT) 41 U/L (10-68); BILIRUBIN - TOTAL 1.58 mg/dL (0.2-1.3); CALC OSMOLALITY 283 mosm/kg (275-300); CALCIUM 8.9 mg/dL (8.5-10.1); CHLORIDE - SERUM 103 mmol/L (98-107); CKMB 2.3 U/L (0.0-3.6); CREATINE KINASE 113 UL (21-232); CREATININE - SERUM 0.6 mg/dL (0.6-1.3); GLUCOSE 201 mg/dL (74-106); MAGNESIUM - SERUM 1.7 mg/dL (1.8-2.4); PROTEIN - SERUM 6.6 g/dL (6.4-8.2); SODIUM 141 mmol/L (136-145); TROPONIN-I 0.032 ng/mL (0.000-0.060); UREA NITROGEN 5 mg/dL (7-18); eGFR NON AFRICAN AMERICAN > 90 mL/min (90-120)
[2019-09-07 02:33] LABS: POTASSIUM - SERUM 2.8 mmol/L (3.5-5.1)
[2019-09-07] MEDS ORDERED: K-DUR20 MEQ PO (02:39)
[2019-09-07 03:25] VITALS: BP 159/102
== END 2019-09-07 03:25 | disposition home or self-care (01) ==
LOC: D.ER 01:18
PROVIDERS: Emergency Medicine
DX: Z85.07 Personal history of malignant neoplasm of pancreas (principal); R10.9 Unspecified abdominal pain; I10 Essential (primary) hypertension; I25.10 Atherosclerotic heart disease of native coronary artery without angina pectoris

== ENCOUNTER 2019-09-10 21:23 | Inpatient (IN) | payer MEDICARE ==
[~2019-09-10] VITALS: Ht 180.3 cm; Wt 80.3 kg
[~2019-09-10 21:23] MED LIST changes: +K-DUR20 MEQ PO
[2019-09-10 22:06] LABS: HEMATOCRIT 32.5 % (42.0-54.0); HEMOGLOBIN 10.6 g/dL (13.5-17.5); LYMPHOCYTES 25.2 % (15-50); MCH 28.3 pg (26.0-34.0); MCHC 32.6 g/dL (31.0-37.0); MCV 86.7 fL (80.0-100.0); MEAN PLATELET VOLUME 8.7 fL (7.4-10.4); NEUTROPHILS 67.9 % (40-80); PLATELET COUNT 313 10x3/uL (130-400); RBC 3.75 10x6/uL (4.20-6.10); RDW 19.1 % (11.5-14.5); WBC 8.4 10x3/uL (4.8-10.8)
[2019-09-10 22:10] LABS: APTT 25.1 SECONDS (22.8-39.4); CALC OSMOLALITY 283 mosm/kg (275-300); CALCIUM 9.2 mg/dL (8.5-10.1); CARBON DIOXIDE 31.6 mmol/L (21.0-32.0); CHLORIDE - SERUM 102 mmol/L (98-107); CREATININE - SERUM 0.7 mg/dL (0.6-1.3); GLUCOSE 272 mg/dL (74-106); INR 1.04 (0.85-1.17); PROTIME 13.1 SECONDS (11.6-15.0); SODIUM 138 mmol/L (136-145); UREA NITROGEN 8 mg/dL (7-18); eGFR NON AFRICAN AMERICAN > 90 mL/min (90-120)
[2019-09-10 22:12] VITALS: BP 158/92
[2019-09-10 22:26] LABS: ALBUMIN 2.7 g/dL (3.4-5.0); ALKALINE PHOSPHATASE 627 U/L (46-116); ALT (SGPT) 53 U/L (10-68); AMYLASE - SERUM 45 U/L (25-115); BILIRUBIN - TOTAL 1.37 mg/dL (0.2-1.3); CREATINE KINASE 125 UL (21-232); LIPASE 1289 U/L (73-393); MAGNESIUM - SERUM 1.7 mg/dL (1.8-2.4); PROTEIN - SERUM 7.1 g/dL (6.4-8.2); TROPONIN-I 0.026 ng/mL (0.000-0.060)
--- NOTE | 2019-09-10 23:15 | NUR ---
PT GIVEN BLANKETS, DENIES ANY FURTHER NEEDS AT THIS TIME. CALL LIGHT WITHIN REACH, WILL CONTINUE TO MONITOR.
[2019-09-10 23:48] LABS: APPEARANCE CLEAR (CLEAR); BILIRUBIN NEGATIVE (NEGATIVE); COLOR YELLOW (YELLOW); GLUCOSE 100 mg/dL (NEGATIVE); KETONE NEGATIVE (NEGATIVE); NITRITE NEGATIVE (NEGATIVE); PROTEIN NEGATIVE (NEGATIVE); UROBILINOGEN NORMAL (NORMAL)
[2019-09-10 23:56] LABS: UDS - AMPHET NEGATIVE QUAL (NEGATIVE); UDS - BARB NEGATIVE QUAL (NEGATIVE); UDS - BENZO NEGATIVE QUAL (NEGATIVE); UDS - COCAINE NEGATIVE QUAL (NEGATIVE); UDS - OPIATE POSITIVE QUAL (NEGATIVE); UDS - PCP NEGATIVE QUAL (NEGATIVE); UDS - THC NEGATIVE QUAL (NEGATIVE)
--- NOTE | 2019-09-11 02:35 | NUR ---
RECIEVE REPORT FROM [facility], PT ARRIVE BY BED. VSS, ALERT, BUT LETHARGIC. AROUSE TO TOUCH. IV NS BOLUS INFUSING ON ARRIVAL. PT C/O ABDOMINAL PAIN 04/16. BUT STATED HE CAN HOLD OFF ON PAIN MEDS AT THIS TIME. PT IS A POOR HISTORIAN. PT PLACED ON TELEMETRY. PT DENIES ANY FURTHER NEEDS AT THIS TIME. [facility] CPOC.
[2019-09-11 03:20] VITALS: BP 132/62; BMI 24.7
[2019-09-11 06:21] LABS: HEMATOCRIT 30.8 % (42.0-54.0); HEMOGLOBIN 10.2 g/dL (13.5-17.5); LYMPHOCYTES 20.5 % (15-50); MCH 28.7 pg (26.0-34.0); MCHC 33.1 g/dL (31.0-37.0); MCV 86.5 fL (80.0-100.0); MEAN PLATELET VOLUME 9.1 fL (7.4-10.4); NEUTROPHILS 70.8 % (40-80); PLATELET COUNT 302 10x3/uL (130-400); RBC 3.56 10x6/uL (4.20-6.10); RDW 19.1 % (11.5-14.5); WBC 9.3 10x3/uL (4.8-10.8)
[2019-09-11 06:22] LABS: ALBUMIN 2.4 g/dL (3.4-5.0); ALKALINE PHOSPHATASE 579 U/L (46-116); ALT (SGPT) 52 U/L (10-68); BILIRUBIN - TOTAL 1.21 mg/dL (0.2-1.3); CALCIUM 8.7 mg/dL (8.5-10.1); CARBON DIOXIDE 29.8 mmol/L (21.0-32.0); CHLORIDE - SERUM 105 mmol/L (98-107); CKMB 1.4 U/L (0.0-3.6); CREATINE KINASE 81 UL (21-232); LIPASE 996 U/L (73-393); POTASSIUM - SERUM 3.1 mmol/L (3.5-5.1); PROTEIN - SERUM 6.3 g/dL (6.4-8.2); SODIUM 141 mmol/L (136-145); TROPONIN-I 0.036 ng/mL (0.000-0.060)
[2019-09-11 06:23] LABS: CALC OSMOLALITY 279 mosm/kg (275-300); CREATININE - SERUM 0.4 mg/dL (0.6-1.3); GLUCOSE 130 mg/dL (74-106); UREA NITROGEN 4 mg/dL (7-18); eGFR NON AFRICAN AMERICAN > 90 mL/min (90-120)
[2019-09-11 08:03] VITALS: BP 128/62
--- NOTE | 2019-09-11 11:53 | NUR ---
ASSESSMENT COMPLETED. ALERT AND ORIENTED, TELEMERTY SHOWS SR 106. ON 02 AT 2. RIGHT AC SL. ON DILAUDID Q 2 HRS PRN. WILL MONITOR
[2019-09-11 12:19] VITALS: BP 126/71
--- NOTE | 2019-09-11 12:47 | NUR ---
DURING THE SCREENING PROCESS WE DISCOVERED THAT THE PATIENT HAS HAD A PRIOR BLADDER STIMULATOR THAT WAS REMOVED. DR SZYMANSKI, OUR RADIOLOGIST TODAY, LOOKED AT THE PATIENTS CT FROM LAST NIGHT AND SEEN A LEAD THAT WAS LEFT THAT IS STILL CONNECTED TO THE BLADDER. HE INFORMED US NOT TO DO THE MRI. CHARITY, THE PATIENTS NURSE, DR BARRIENTOS'S OFFICE (VINEET), AND THE PATIENT WERE ALL INFORMED OF THIS. EXAM WAS THEN CANCELLED.
[2019-09-11 15:13] VITALS: Ht 180.3 cm; Wt 80.3 kg
[2019-09-11 16:10] VITALS: BP 152/102
--- NOTE | 2019-09-11 18:12 | NUR ---
LYING QUIETLY WITHEYES CLOSED. WANTS PAIN WHEN ITS TIME. TELEMERTY SHOWS SR. WILL MONITOR
--- NOTE | 2019-09-11 19:20 | NUR ---
RECIEVED ORDER FROM GIDEON SAP SOLUTION MANAGER CONSULTANT TO START PT ON DILAUDID 0.2MG PRN Q15MIN. 1MG BOLUS Q2, 4MG LOCKOUT.
[2019-09-11 20:00] VITALS: BP 117/72
--- NOTE | 2019-09-11 20:00 | NUR ---
EVENING ROUNDS COMPLETED. VSS, AAOX3, PT C/O OF ABDOMINAL PAIN. STATES HE IS ALWAYS HURTING. NOTIFIED PT THAT TOOL TROUBLE SHOOTER HAS ORDERED FRUIT AND VEGETABLE INSPECTOR DILAUDID AND WILL BE RESTARTED SOON PHARMACY VERIFY MED. WARM PACK PROVIDED PER PT'S REQUEST. WILL CPOC. CL WITHIN REACH.
--- NOTE | 2019-09-11 20:10 | NUR ---
DILAUDID KAPOK AND COTTON MACHINE OPERATOR STARTED. PT EDUCTATED ON HOW TO PUSH BOTTOM NEEDED Q15MIN. PT VERBALIZED UNDERSTANDING. WILL CTM.
--- NOTE | 2019-09-11 23:00 | NUR ---
PT C/O MANAGER COPY PUMP NOT "WORKING." NOTIFIED PT THAT HE HAS TO WAIT FOR MANAGER COPY BOTTON TO TURN GREEN BEFORE PUSHING THE BOTTON, AND THAT IT TAKES ABOUT 15MIN. PT STILL NOT CONVINCED THAT THE MANAGER COPY WORKS. HE STATED HE WILL LEAVE THE HOSPITAL IF NOTHING IS DONE. PT REASSURED THAT MANAGER COPY WORKS AND THAT HE HAS TO WAIT TILL BOTTON TURNS GREE.
--- NOTE | 2019-09-11 23:00 | NUR ---
PT HAS BEEN C/O WORLD TRAVEL COUNSELOR NOT INFUSING. ALTHOUGH PT HAS NOT BEEN WAITING FOR THE 15MIN LOCK OUT ITME. I HAVE EDUCATED PT 4 TIMES TIMES ON THE NEED TO HOLD ON FOR THE LOCKOUT TIME TO AND WAIT FOR ELLE FERGUSON TO COME ON BEFORE PUSHING THE BOTTON. PT STILL INSIST THAT HE WILL GO HOME IF NOTHING IS DONE ABOUT WORLD TRAVEL COUNSELOR.
[2019-09-12] VITALS: BP 130/72
[2019-09-12 04:00] VITALS: BP 121/81
[2019-09-12 06:22] LABS: ALBUMIN 2.3 g/dL (3.4-5.0); ALKALINE PHOSPHATASE 588 U/L (46-116); ALT (SGPT) 47 U/L (10-68); BILIRUBIN - TOTAL 1.21 mg/dL (0.2-1.3); CALCIUM 8.7 mg/dL (8.5-10.1); CARBON DIOXIDE 28.2 mmol/L (21.0-32.0); CHLORIDE - SERUM 106 mmol/L (98-107); CREATININE - SERUM 0.5 mg/dL (0.6-1.3); MAGNESIUM - SERUM 1.6 mg/dL (1.8-2.4); PROTEIN - SERUM 6.1 g/dL (6.4-8.2); SODIUM 141 mmol/L (136-145); eGFR NON AFRICAN AMERICAN > 90 mL/min (90-120)
[2019-09-12 06:28] LABS: BASOPHILS 0.4 % (0-2); EOSINOPHILS 3.2 % (0-7); HEMATOCRIT 30.2 % (42.0-54.0); HEMOGLOBIN 9.4 g/dL (13.5-17.5); IMMATURE GRANULOCYTES 0.1 % (0-5); LYMPHOCYTES 23.9 % (15-50); MCH 27.5 pg (26.0-34.0); MCHC 31.1 g/dL (31.0-37.0); MCV 88.3 fL (80.0-100.0); MEAN PLATELET VOLUME 9.5 fL (7.4-10.4); MONOCYTES 6.5 % (2-11); NEUTROPHILS 65.9 % (40-80); PLATELET COUNT 284 10x3/uL (130-400); RBC 3.42 10x6/uL (4.20-6.10); RDW 19.3 % (11.5-14.5); WBC 7.7 10x3/uL (4.8-10.8)
[2019-09-12 06:37] LABS: AMYLASE - SERUM 27 U/L (25-115); CALC OSMOLALITY 277 mosm/kg (275-300); GLUCOSE 68 mg/dL (74-106); LIPASE 388 U/L (73-393); POTASSIUM - SERUM 3.8 mmol/L (3.5-5.1); UREA NITROGEN 9 mg/dL (7-18)
[2019-09-12 08:00] VITALS: BP 119/73
--- NOTE | 2019-09-12 08:06 | NUR ---
PT RECEIVED AWAKE AND ALERT. USING ADMINISTRATIVE ACCOUNTANT FOR PAIN. ASKING FOR SOMETHING TO EAT AND ALSO FOR TRAPEZE BAR. WILL TALK WITH THERAPY ABOUT BAR.
--- NOTE | 2019-09-12 10:28 | NUR ---
AFTER GETTING MORE INFORMATION ON PT'S IMPLANTED LEAD. DR TURNER HAS AGREED TO LET US SCAN THE PATIENT SINCE HE WAS SCANNED PREVIOUSLY AT [facility]. CALLED GIDEON BARONE AND HE GAVE US THE VERBAL ORDER TO DO THE MRI ABD W/WO FOR PANCREATIC CANCER. NEW ORDER WAS PUT IN AND PT WILL BE SCANNED TODAY. WE CALLED THE PATIENTS ROOM AND INFORMED HIM THAT WE WILL COME GET HIM SHORTLY FOR THIS TEST.
[2019-09-12 12:02] VITALS: BP 144/88
[2019-09-12 16:00] VITALS: BP 122/68
--- NOTE | 2019-09-12 20:25 | NUR ---
RECEIVED UP SITTING ON SIDE OF BED. ALERT AND ORIENTED X4. UP AD WENDY. O2@ 2 LITERS PER N/C IN PLACE. IV TO LEFT FAWITH NS AT 100CC/HR. ENROLLMENT ELIGIBILITY REPRESENTATIVE WITH DILAUDID AT -.2/15/4MG. REQUEST APPLE JUICE AND ICE. DENIES ANY OTHER NEEDS.
[2019-09-12 20:30] VITALS: BP 146/82
[2019-09-13] VITALS: BP 130/72
[2019-09-13 05:49] LABS: BASOPHILS 0.4 % (0-2); EOSINOPHILS 3.4 % (0-7); HEMATOCRIT 30.9 % (42.0-54.0); HEMOGLOBIN 9.8 g/dL (13.5-17.5); IMMATURE GRANULOCYTES 0.3 % (0-5); LYMPHOCYTES 18.1 % (15-50); MCH 27.8 pg (26.0-34.0); MCHC 31.7 g/dL (31.0-37.0); MCV 87.8 fL (80.0-100.0); MEAN PLATELET VOLUME 9.6 fL (7.4-10.4); MONOCYTES 10.8 % (2-11); PLATELET COUNT 275 10x3/uL (130-400); RBC 3.52 10x6/uL (4.20-6.10); RDW 19.1 % (11.5-14.5)
[2019-09-13 06:29] LABS: ALBUMIN 2.4 g/dL (3.4-5.0); ALKALINE PHOSPHATASE 522 U/L (46-116); ALT (SGPT) 38 U/L (10-68); AMYLASE - SERUM 20 U/L (25-115); BILIRUBIN - TOTAL 1.09 mg/dL (0.2-1.3); CALC OSMOLALITY 278 mosm/kg (275-300); CALCIUM 8.8 mg/dL (8.5-10.1); CARBON DIOXIDE 31.1 mmol/L (21.0-32.0); CHLORIDE - SERUM 104 mmol/L (98-107); CREATININE - SERUM 0.6 mg/dL (0.6-1.3); GLUCOSE 116 mg/dL (74-106); LIPASE 260 U/L (73-393); POTASSIUM - SERUM 3.8 mmol/L (3.5-5.1); PROTEIN - SERUM 6.4 g/dL (6.4-8.2); SODIUM 141 mmol/L (136-145); UREA NITROGEN 5 mg/dL (7-18); eGFR NON AFRICAN AMERICAN > 90 mL/min (90-120)
[2019-09-13 08:00] VITALS: BP 141/79
[2019-09-13 12:00] VITALS: BP 145/82
[2019-09-13 16:00] VITALS: BP 134/68
--- NOTE | 2019-09-13 19:30 | NUR ---
PT IN BED ALERT AND ORIENTED X4. RR EVEN AND UNLABORED. PT DENIES ANY PAIN OR NEEDS AT THIS TIME. BED LOW CALL LIGHT WIOTHIN REACH. WILL CONTINUE TO MONITOR.
[2019-09-13 20:30] VITALS: BP 148/89
--- NOTE | 2019-09-14 02:53 | NUR ---
PT ALERT AND ORIENTED X4. RR EVEN AND UNLABORED. CLOTH PATTERN MAKER SYRINGE REPLACED. NO S/S OF DISTRESS WILL CONTINUE TO MONITOR.
--- NOTE | 2019-09-14 04:11 | NUR ---
I have reviewed this patient and I concur with the Shift Assessment completed by the Licensed Practical Nurse today this shift.
[2019-09-14 05:39] LABS: BASOPHILS 0.3 % (0-2); EOSINOPHILS 3.6 % (0-7); HEMATOCRIT 30.7 % (42.0-54.0); HEMOGLOBIN 9.8 g/dL (13.5-17.5); IMMATURE GRANULOCYTES 0.3 % (0-5); LYMPHOCYTES 22.8 % (15-50); MCH 27.9 pg (26.0-34.0); MCHC 31.9 g/dL (31.0-37.0); MCV 87.5 fL (80.0-100.0); MEAN PLATELET VOLUME 9.4 fL (7.4-10.4); MONOCYTES 7.6 % (2-11); NEUTROPHILS 65.4 % (40-80); PLATELET COUNT 256 10x3/uL (130-400); RBC 3.51 10x6/uL (4.20-6.10); RDW 19.1 % (11.5-14.5); WBC 6.6 10x3/uL (4.8-10.8)
[2019-09-14 06:04] LABS: ALBUMIN 2.5 g/dL (3.4-5.0); ALKALINE PHOSPHATASE 650 U/L (46-116); ALT (SGPT) 42 U/L (10-68); AMYLASE - SERUM 21 U/L (25-115); BILIRUBIN - TOTAL 1.03 mg/dL (0.2-1.3); CALC OSMOLALITY 282 mosm/kg (275-300); CALCIUM 8.4 mg/dL (8.5-10.1); CARBON DIOXIDE 29.5 mmol/L (21.0-32.0); CHLORIDE - SERUM 106 mmol/L (98-107); GLUCOSE 123 mg/dL (74-106); LIPASE 322 U/L (73-393); POTASSIUM - SERUM 4.1 mmol/L (3.5-5.1); SODIUM 143 mmol/L (136-145); UREA NITROGEN 4 mg/dL (7-18)
[2019-09-14 06:05] LABS: CREATININE - SERUM 0.4 mg/dL (0.6-1.3); eGFR NON AFRICAN AMERICAN > 90 mL/min (90-120)
[2019-09-14 06:16] LABS: INR 1.01 (0.85-1.17); PROTIME 12.8 SECONDS (11.6-15.0)
--- NOTE | 2019-09-14 07:00 | NUR ---
RECEIVED REPORT. ASSUMED CARE OF PATIENT. CALL LIGHT WITHIN REACH. PATIENT ALERT/ORIENTED. PATIETN OOB TO RESTROOM AT THIS TIME DURING BEDSIDE ROUNDING. DENIES NEEDS AT THIS TIME. NO DISTRESS.
[2019-09-14 08:50] VITALS: BP 141/90
[2019-09-14] MEDS ORDERED: COUMADIN3 MG PO (10:49)
--- NOTE | 2019-09-14 11:14 | MORECARE ---
CASE MANAGEMENT DISCHARGE SUMMARY PATIENT: DARA TOMPKINS UNIT: [id number] ADM DATE: 09/11/19 AGE: 49 : 70 SEX: M ROOM/BED: D.2132 AUTHOR: ANOOP TORIBIO PHYSICIAN: REFERRING PHYSICIAN: SASKIA BARRIENTOS MD DATE OF SERVICE: 09/14/19 Discharge Plan Patient Name: DARA TOMPKINS [facility] [facility] 1970 Planned Disposition: Home Anticipated Discharge Date: Discharge Date: Expected LOS: Initial Reviewer: [email or web address] Initial Review Date: 09/14/2019 Generated: 09/14/19 12:13 pm DCPIA - Discharge Planning Initial Assessment Updated by [email or web address]: Monica Caldwell on 09/14/19 11:11 am * Is the patient Alert and Oriented? Yes * PCP FLOYD * Pharmacy [facility] * Preadmission Environment Homeless * Other Equipment 02, [facility] * Please name any agencies selected above. [facility] * Additional services required to return to the preadmission environment? No * Can the patient safely return to the preadmission environment? Yes * Has this patient been hospitalized within the prior 30 days at any hospital? Yes Coverage Notice Reviewer: [id number] - Monica Caldwell Notice Issued Date-Time: 09/14/2019 11:08 Notice Type: IM Discharge Notice Notice Delivered To: Patient Relationship to Patient: Car Blocker Name: Delivery Method: HAND - Hand Delivered Naomi Days: Prior Verbal Notification: Recipient Understood Notice: Yes Recipient Signature: Yes Med Rec Note Co-signed by Attending: Coverage Notice Comment: Patient Name: DARA TOMPKINS Page [phone] at 1114 All edits/amendments must be made on the electronic document DICTATION DATE: 09/14/19 111 CANDLE MAKER: KEYANNA 09/14/19 111 RPT#: [id number] DC DATE: STATUS: ADM IN [facility] [address] [place] [address] END OF REPORT
--- NOTE | 2019-09-14 11:20 | MORECARE ---
CASE MANAGEMENT DISCHARGE SUMMARY PATIENT: DARA TOMPKINS UNIT: [id number] ADM DATE: 09/11/19 AGE: 49 : 70 SEX: M ROOM/BED: D.2132 AUTHOR: CATARINO,DOC PHYSICIAN: REFERRING PHYSICIAN: SASKIA BARRIENTOS MD DATE OF SERVICE: 09/14/19 Discharge Plan Patient Name: DARA TOMPKINS Facility: [facility]:[place] : 1970 Planned Disposition: Home Anticipated Discharge Date: Discharge Date: Expected LOS: Initial Reviewer: [email or web address] Initial Review Date: 09/14/2019 Generated: 09/14/19 12:20 pm Comments DCP- Discharge Planning Updated by [id number]: Monica Caldwell on 09/14/19 10:[address] Patient Name: DAAR TOMPKINS Admission Status: ER Accout number: [id number] Admission Date: 09-11-2019 : 1970 Admission Diagnosis: Attending: LINDA Current LOS: 3 Anticipated DC Date: Planned Disposition: Home Primary Insurance: MEDICARE A & B Discharge Planning Comments: CM MET WITH PATIENT ABOUT DC PLANNING/NEEDS. STATES HE IS LIVING IN HIS CAR. HAS CHEMO WITH [employer] TOMORROW. IS GOING TO APPLY FOR HUD HOUSING THROUGH [facility] SUNDAY. WAS ACCEPTED AT A SNF BUT HE IS NOT GOING TO GO UNTIL HE IS DONE WITH CHEMO. IMM SIGNED. PATIENT TO DC TODAY. DOES NOT WANT LIST OF HOMELESS SHELTERS, HE ALREADY KNOWS THEM AND WOULD RATHER STAY IN HIS CAR. Strategic Account Executive: Monica Caldwell DCPIA - Discharge Planning Initial Assessment Updated by [id number]: Monica Caldwell on 09/14/19 11:11 am * Is the patient Alert and Oriented? Yes * PCP FLOYD * Pharmacy [facility] * Preadmission Environment Homeless * Other Equipment 02, [facility] * Please name any agencies selected above. [facility] * Additional services required to return to the preadmission environment? No * Can the patient safely return to the preadmission environment? Yes * Has this patient been hospitalized within the prior 30 days at any hospital? Yes Coverage Notice Reviewer: [id number] - Monica Caldwell Notice Issued Date-Time: 09/14/2019 11:08 Notice Type: IM Discharge Notice Notice Delivered To: Patient Relationship to Patient: Fur Clipper Name: Delivery Method: HAND - Hand Delivered Naomi Days: Prior Verbal Notification: Recipient Understood Notice: Yes Recipient Signature: Yes Med Rec Note Co-signed by Attending: Coverage Notice Comment: Last DP export: 09/14/19 10:14 a Patient Name: DARA TOMPKINS Page 93443 at 1120 All edits/amendments must be made on the electronic document DICTATION DATE: 09/14/191119 CLEAT BLANKER: KEYANNA 09/14/191119 RPT#: [id number] DC DATE: STATUS: ADM IN [facility] [address] [place] [address] END OF REPORT
--- NOTE | 2019-09-14 12:11 | NUR ---
CALLED ACQUISITIONS ANALYST DUE TO PATIENTS BELONGINGS ARE LOCKED UP IN THE SAFE, INCLUDING HIS CAR KEYS BECAUSE ER ADMISSIONS HAS NO ACCESS TO THE SAFE. THE PATIENT IS HOMELESS AND HIS CAR IS ALL HE HAS. ASKED PATIENT TO WAIT IN HIS ROOM UNTIL HIS PERSONAL ITEMS CAN BE RETRIEVED FROM THE SAFE. 1200 DISCHARGE INSTRUCTIONS PROVIDED TO PATIENT. PATIENT VERBALIZED UNDERSTANDING OF ALL INSTRUCTIONS PROVIDED. 1150 22 GAUGE IV REMOVED FROM LEFT FOREARM. CATHETER TIP INTACT. NO BLEEDING FROM SITE. 2X2 GAUZE APPLIED AND SECURED WITH BANDAID.
[2019-09-14 12:56] VITALS: BP 146/89
--- NOTE | 2019-09-14 13:12 | NUR ---
PATIENTS BELONGINGS BROUGHT TO THE FLOOR AND PATIENT SIGNED THAT ALL HIS BELONGINGS WERE RETURNED TO HIM AND HE LEFT IN NO DISTRESS.
--- NOTE | 2019-09-14 16:04 | MORECARE ---
CASE MANAGEMENT DISCHARGE SUMMARY PATIENT: DARA TOMPKINS UNIT: [id number] ADM DATE: 09/11/19 AGE: 49 : 70 SEX: M ROOM/BED: D.2132 AUTHOR: CATARINO,DOC PHYSICIAN: REFERRING PHYSICIAN: SASKIA BARRIENTOS MD DATE OF SERVICE: 09/14/19 Discharge Plan Patient Name: DARA TOMPKINS Facility: [facility]:[place] : 1970 Planned Disposition: Home Anticipated Discharge Date: Discharge Date: 09/14/2019 Expected LOS: Initial Reviewer: [email or web address] Initial Review Date: 09/14/2019 Generated: 09/14/19 5:04 pm Comments DCP- Discharge Planning Updated by [email or web address]: Monica Caldwell on 09/14/19 10:[address] Patient Name: DARA TOMPKINS Admission Status: ER Accout number: [id number] Admission Date: 09-11-2019 : 1970 Admission Diagnosis: Attending: LINDA Current LOS: 3 Anticipated DC Date: Planned Disposition: Home Primary Insurance: MEDICARE A & B Discharge Planning Comments: CM MET WITH PATIENT ABOUT DC PLANNING/NEEDS. STATES HE IS LIVING IN HIS CAR. HAS CHEMO WITH [employer] TOMORROW. [facility] IS GOING TO APPLY FOR HUD HOUSING THROUGH [facility] SUNDAY. WAS ACCEPTED AT A SNF BUT HE IS NOT GOING TO GO UNTIL HE IS DONE WITH CHEMO. IMM SIGNED. PATIENT TO DC TODAY. DOES NOT WANT [facility] OF [facility]OM[facility]ESS [facility], HE ALREADY KNOWS THEM AND WOULD RATHER STAY IN HIS CAR. Biology Specimen Technician: Monica Caldwell DCPIA - Discharge Planning Initial Assessment Updated by [email or web address]: Monica Caldwell on 09/14/19 11:11 am * Is the patient Alert and Oriented? Yes * PCP FLOYD * Pharmacy [facility] * Preadmission Environment Homeless * Other Equipment 02, NEB * Please name any agencies selected above. [facility] * Additional services required to return to the preadmission environment? No * Can the patient safely return to the preadmission environment? Yes * Has this patient been hospitalized within the prior 30 days at any hospital? Yes Coverage Notice Reviewer: [id number] - Monica Caldwell Notice Issued Date-Time: 09/14/2019 11:08 Notice Type: IM Discharge Notice Notice Delivered To: Patient Relationship to Patient: Steam Shovel Operator Name: Delivery Method: HAND - Hand Delivered Naomi Days: Prior Verbal Notification: Recipient Understood Notice: Yes Recipient Signature: Yes Med Rec Note Co-signed by Attending: Coverage Notice Comment: Last DP export: 09/14/19 10:20 a Patient Name: DARA TOMPKINS Page [phone] at 1604 All edits/amendments must be made on the electronic document DICTATION DATE: 09/14/19 1604 CUSTOMER RELATIONS REPRESENTATIVE: KEYANNA 09/14/19 1604 RPT#: [id number] DC DATE:09/14/19 STATUS: DIS IN [facility] [address] [place] [address] END OF REPORT
== END 2019-09-14 13:00 | disposition home or self-care (01) | DRG 439 ==
LOC: D.ER 21:23 → D.M2 09-11 00:57
PROVIDERS: Family Medicine; ADMIT Emergency Medicine; ATTEND Emergency Medicine
DX: K85.90 Acute pancreatitis without necrosis or infection, unspecified (principal); C25.9 Malignant neoplasm of pancreas, unspecified; Z79.01 Long term (current) use of anticoagulants; D64.81 Anemia due to antineoplastic chemotherapy; T45.1X5A Adverse effect of antineoplastic and immunosuppressive drugs, initial encounter; E87.6 Hypokalemia; I10 Essential (primary) hypertension; K74.60 Unspecified cirrhosis of liver; I25.10 Atherosclerotic heart disease of native coronary artery without angina pectoris; J43.9 Emphysema, unspecified

== ENCOUNTER → 2019-09-11 08:30 | Outpatient (CLI) | payer MEDICARE ==
[2019-09-11 15:13] VITALS: BMI 24.6
== END | disposition home or self-care (01) ==
LOC: D.MRI 08:00
DX: C25.0 Malignant neoplasm of head of pancreas (principal)

== ENCOUNTER 2019-09-21 14:33 | Emergency (ER) | payer MEDICARE ==
[~2019-09-21] VITALS: Ht 180.3 cm; Wt 76.8 kg
[2019-09-21 14:46] VITALS: Ht 180.3 cm; Wt 76.8 kg
[2019-09-21 15:10] LABS: BASOPHILS 0.2 % (0-2); EOSINOPHILS 4.8 % (0-7); HEMATOCRIT 30.6 % (42.0-54.0); IMMATURE GRANULOCYTES 0.1 % (0-5); LYMPHOCYTES 21.9 % (15-50); MCH 28.1 pg (26.0-34.0); MCHC 32.7 g/dL (31.0-37.0); MEAN PLATELET VOLUME 9.4 fL (7.4-10.4); MONOCYTES 6.6 % (2-11); NEUTROPHILS 66.4 % (40-80); PLATELET COUNT 303 10x3/uL (130-400); RBC 3.56 10x6/uL (4.20-6.10); RDW 18.3 % (11.5-14.5); WBC 8.4 10x3/uL (4.8-10.8)
[2019-09-21 15:19] LABS: INR 1.16 (0.85-1.17); PROTIME 14.3 SECONDS (11.6-15.0)
[2019-09-21 15:37] LABS: ALBUMIN 2.7 g/dL (3.4-5.0); ALKALINE PHOSPHATASE 454 U/L (46-116); ALT (SGPT) 30 U/L (10-68); AMYLASE - SERUM 22 U/L (25-115); BILIRUBIN - TOTAL 0.72 mg/dL (0.2-1.3); CALCIUM 8.6 mg/dL (8.5-10.1); CARBON DIOXIDE 27.5 mmol/L (21.0-32.0); CHLORIDE - SERUM 101 mmol/L (98-107); CKMB 2.5 U/L (0.0-3.6); CREATINE KINASE 95 UL (21-232); CREATININE - SERUM 0.7 mg/dL (0.6-1.3); LIPASE 512 U/L (73-393); MAGNESIUM - SERUM 1.5 mg/dL (1.8-2.4); PROTEIN - SERUM 6.4 g/dL (6.4-8.2); SODIUM 137 mmol/L (136-145); TROPONIN-I 0.028 ng/mL (0.000-0.060); UREA NITROGEN 7 mg/dL (7-18); eGFR NON AFRICAN AMERICAN > 90 mL/min (90-120)
[2019-09-21 15:38] LABS: CALC OSMOLALITY 281 mosm/kg (275-300); GLUCOSE 277 mg/dL (74-106)
[2019-09-21 15:39] LABS: POTASSIUM - SERUM 2.9 mmol/L (3.5-5.1)
[2019-09-21 18:25] LABS: CKMB 2.1 U/L (0.0-3.6); CREATINE KINASE 84 UL (21-232); TROPONIN-I 0.034 ng/mL (0.000-0.060)
[2019-09-21 22:56] VITALS: BP 143/96
== END 2019-09-21 22:56 | disposition home or self-care (01) ==
LOC: D.ER 14:33
PROVIDERS: Family Medicine
DX: G89.29 Other chronic pain (principal); E87.6 Hypokalemia; E83.42 Hypomagnesemia; K86.9 Disease of pancreas, unspecified; Z85.07 Personal history of malignant neoplasm of pancreas; Z95.5 Presence of coronary angioplasty implant and graft; J44.9 Chronic obstructive pulmonary disease, unspecified; K21.9 Gastro-esophageal reflux disease without esophagitis

== ENCOUNTER 2019-09-23 18:26 | Inpatient (IN) | payer OTHER ==
[~2019-09-23] VITALS: Ht 180.3 cm; Wt 75.5 kg
--- NOTE | 2019-09-23 19:01 | NUR ---
BS REPORT TO AMANDA PATEL
[2019-09-23 19:09] LABS: BASOPHILS 0.3 % (0-2); EOSINOPHILS 4.5 % (0-7); HEMATOCRIT 31.1 % (42.0-54.0); HEMOGLOBIN 10.1 g/dL (13.5-17.5); IMMATURE GRANULOCYTES 0.2 % (0-5); LYMPHOCYTES 28.7 % (15-50); MCH 27.9 pg (26.0-34.0); MCHC 32.5 g/dL (31.0-37.0); MCV 85.9 fL (80.0-100.0); MEAN PLATELET VOLUME 9.7 fL (7.4-10.4); MONOCYTES 7.6 % (2-11); NEUTROPHILS 58.7 % (40-80); PLATELET COUNT 332 10x3/uL (130-400); RBC 3.62 10x6/uL (4.20-6.10); RDW 18.1 % (11.5-14.5); WBC 9.8 10x3/uL (4.8-10.8)
[2019-09-23 19:26] LABS: CALC OSMOLALITY 278 mosm/kg (275-300); CALCIUM 8.4 mg/dL (8.5-10.1); CARBON DIOXIDE 27.5 mmol/L (21.0-32.0); CHLORIDE - SERUM 103 mmol/L (98-107); CREATININE - SERUM 0.7 mg/dL (0.6-1.3); GLUCOSE 231 mg/dL (74-106); POTASSIUM - SERUM 3.1 mmol/L (3.5-5.1); SODIUM 137 mmol/L (136-145); UREA NITROGEN 7 mg/dL (7-18); eGFR NON AFRICAN AMERICAN > 90 mL/min (90-120)
[2019-09-23 19:36] LABS: ALBUMIN 2.8 g/dL (3.4-5.0); ALKALINE PHOSPHATASE 633 U/L (46-116); ALT (SGPT) 55 U/L (10-68); BILIRUBIN - TOTAL 0.87 mg/dL (0.2-1.3); LIPASE 713 U/L (73-393); PROTEIN - SERUM 6.6 g/dL (6.4-8.2); TROPONIN-I 0.038 ng/mL (0.000-0.060)
--- NOTE | 2019-09-23 19:50 | NUR ---
PT GIVEN URINAL, DENIES ANY FURTHER NEEDS AT THIS TIME. CALL LIGHT WITHIN REACH, WILL CONITNUE TO MONITOR.
--- NOTE | 2019-09-23 20:53 | NUR ---
ANSWERED PT'S CALL LIGHT, ASSISTED PT WITH USING PHONE IN ROOM, DENIES ANY FURTHER NEEDS AT THIS TIME. CALL LIGHT WITHIN REACH, WILL CONTINUE TO MONITOR.
--- NOTE | 2019-09-23 21:50 | NUR ---
PT GIVEN ICE WATER, DENIES ANY FURTHER NEEDS AT THIS TIME. CALL LIGHT WITHIN REACH. WILL CONTINUE TO MONITOR.
--- NOTE | 2019-09-23 23:08 | NUR ---
ADMITTED BY MANDO FROM ER PT IN BED LOW AND LOCKED AND CALL LIGHT PROVIDED
[2019-09-24 02:45] VITALS: BP 145/92; Ht 180.3 cm; Wt 75.5 kg
[2019-09-24 09:34] VITALS: BP 147/92
--- NOTE | 2019-09-24 09:51 | MORECARE ---
CASE MANAGEMENT DISCHARGE SUMMARY PATIENT: DARA TOMPKINS UNIT: [id number] ADM DATE: 09/23/19 AGE: 49 : 70 SEX: M ROOM/BED: D.6168 AUTHOR: ANOOP TORIBIO PHYSICIAN: REFERRING PHYSICIAN: MARYAM GONZALEZ MD DATE OF SERVICE: 09/24/19 Discharge Plan Patient Name: DARA TOMPKINS [facility] [facility] 1970 Planned Disposition: Anticipated Discharge Date: Discharge Date: Expected LOS: Initial Reviewer: [id number] Initial Review Date: 09/24/2019 Generated: 09/24/19 10:51 am Comments DCP- Discharge Planning Updated by [email or web address]: Lavell Eastman on 09/24/19 8:[address] Patient Name: DARA TOMPKINS Admission Status: ER Accout number: [id number] Admission Date: 09-23-2019 : 1970 Admission Diagnosis: Attending: MARYAM GONZALEZ Current LOS: 1 Anticipated DC Date: Planned Disposition: Primary Insurance: [facility] Discharge Planning Comments: PATIENT ADMITTED TO [facility] WITH [facility], TO RECEIVE ALL CASE MANAGEMENT SERVICES FROM [facility]. NO ANTICIPATED DISCHARGE NEED OF HOSPITAL FEED MIXER HELPER. Carburizer: Lavell Eastman Patient Name: DARA TOMPKINS Page [phone] at 0951 All edits/amendments must be made on the electronic document DICTATION DATE: 09/24/19950 HOME ECONOMICS EXPERT: KEYANNA 09/24/19950 RPT#: [id number] DC DATE: STATUS: ADM IN [facility] [address] [place] [address] END OF REPORT
[2019-09-24 12:43] VITALS: BP 140/98
--- NOTE | 2019-09-24 16:51 | NUR ---
I have reviewed this patient and I concur with the Shift Assessment completed by the Licensed Practical Nurse today this shift.
[2019-09-24 17:16] VITALS: BP 144/94
--- NOTE | 2019-09-24 18:31 | NUR ---
SPOKE WITH [place] [employer]. STATED PT HAS A WARRANT FOR HIS ARREST AND PD NEEDS TO BE NOTIFIED BEFORE PT IS DISCHARGED. WILL PASS ALONG IN REPORT.
[2019-09-24 20:00] VITALS: BP 126/86
[2019-09-25] VITALS: BP 129/86
[2019-09-25 04:00] VITALS: BP 122/85
--- NOTE | 2019-09-25 07:30 | NUR ---
PT RESTING, AWAKE, ALERT AND ORIENTED. LEFT CHEST PORT INFUSING NS @ [facility] WITH MORPHINE PLATE GRINDER. PT DENIES NEEDS OR PAIN AT THIS TIME. RR EVEN AND UNLABORED. BED IN LOWEST POSITION. CALL LIGHT WITHIN REACH. WILL CONTINUE TO MONITOR.
--- NOTE | 2019-09-25 08:50 | NUR ---
PT AMBULATING IN HALLWAY WITH STEADY GAIT AFTER HE WAS ADVISED NOT TO DUE TO CONSTRUCTION DRIVER PUMP. PT REQUESTED TO GO OUTSIDE, WAS TOLD HE COULD NOT GO BECAUSE OF CONSTRUCTION DRIVER. PT THREATENED TO TAKE PORT ACCESS OUT. WILL CONTINUE TO MONITOR.
--- NOTE | 2019-09-25 19:10 | NUR ---
BEDSIDE REPORT RECEIVED FROM DAY SHIFT, PT CARE ASSUMED. INTRODUCED SELF AND WROTE NAME ON BOARD. PT SITTING UP IN BED, AAOX4. REQUESTING CUP OF ICE, PROVIDED. 325 ML CLEAR YELLOW URINE EMPTIED FROM URINAL. C/O "PAIN PILL NOT WORKING". DENIES ANY OTHER NEEDS AT THIS TIME. BED IN LOWEST POSITION, SR X2, CALL LIGHT AND URINAL WITHIN REACH. WILL CONTINUE TO MONITOR.
--- NOTE | 2019-09-25 19:27 | NUR ---
I HAVE REVIEWED THE ASSESSMENT BY THE CONTINUITY READER AND I CONCUR.
[2019-09-25 20:00] VITALS: BP 126/78
[2019-09-25 23:00] VITALS: BP 130/70
[2019-09-26 04:00] VITALS: BP 116/62
[2019-09-26 09:48] VITALS: BP 120/75
[2019-09-26] MEDS ORDERED: MS CONTIN30 MG PO (12:48)
[2019-09-26] MEDS ORDERED: MORPHINE IMMEDI15 MG PO (12:48)
--- NOTE | 2019-09-26 12:59 | MORECARE ---
CASE MANAGEMENT DISCHARGE SUMMARY PATIENT: DARA TOMPKINS UNIT: [id number] ADM DATE: 09/23/19 AGE: 49 : 70 SEX: M ROOM/BED: D.8129 AUTHOR: ANOOP TORIBIO PHYSICIAN: REFERRING PHYSICIAN: MARYAM GONZALEZ MD DATE OF SERVICE: 09/26/19 Discharge Plan Patient Name: DARA TOMPKINS Facility: [facility]:[place] : 1970 Planned Disposition: Home Anticipated Discharge Date: 09/26/19 Discharge Date: Expected LOS: 3 Initial Reviewer: [id number] Initial Review Date: 09/24/2019 Generated: 09/26/19 1:59 pm Comments DCP- Discharge Planning Updated by [email or web address]: Lavell Eastman on 09/24/19 8:[address] Patient Name: DARA TOMPKINS Admission Status: ER Accout number: [id number] Admission Date: 09-23-2019 : 1970 Admission Diagnosis: Attending: MARYAM GONZALEZ Current LOS: 1 Anticipated DC Date: Planned Disposition: Primary Insurance: [facility] Discharge Planning Comments: PATIENT ADMITTED TO [facility], TO RECEIVE ALL CASE MANAGEMENT SERVICES FROM [facility]. NO ANTICIPATED DISCHARGE NEED OF HOSPITAL MANAGER DIESEL. Engineering Test Mechanic: Lavell Eastman Last DP export: 09/24/19 8:51 Patient Name: DARA TOMPKINS Page [phone] at 1259 All edits/amendments must be made on the electronic document DICTATION DATE: 09/26/19 125 SPEEDER FRAME TENDER: KEYANNA 09/26/19 1259 RPT#: [id number] DC DATE: STATUS: ADM IN [facility] [address] [place] [address] END OF REPORT
--- NOTE | 2019-09-26 13:08 | MORECARE ---
CASE MANAGEMENT DISCHARGE SUMMARY PATIENT: DARA TOMPKINS UNIT: [id number] ADM DATE: 09/23/19 AGE: 49 : 70 SEX: M ROOM/BED: D.8785 AUTHOR: ANOOP TORIBIO PHYSICIAN: REFERRING PHYSICIAN: MARYAM GONZALEZ MD DATE OF SERVICE: 09/26/19 Discharge Plan Patient Name: DARA TOMPKINS Facility: [facility]:[place] : 1970 Planned Disposition: Home Anticipated Discharge Date: 09/26/19 Discharge Date: Expected LOS: 3 Initial Reviewer: [id number] Initial Review Date: 09/24/2019 Generated: 09/26/19 2:07 pm Comments DCP- Discharge Planning Updated by [id number]: Lavell Eastman on 09/26/19 12:[address] Patient Name: DARA TOMPKINS Encounter No: [id number] : 1970 Primary Insurance: [facility] Anticipated DC Date: 09-26-2019 Planned Disposition: Home DCP follow-up note: CM RECEIVED CALL FROM FIORELLA OF [facility], HOSPICE IS DISCHARGING PT TODAY. [facility] IS NOTIFYING [facility]S OFFICE OF HOSPICE DISCHARGE AND IS NOTIFYING HOSPITAL NOW. RN CARLA EUGENE NOTIFIED CM DIRECTOR PASCUAL AND UNIT NURSE INSTRUMENT ASSEMBLY SUPERVISOR. Lavell Eastman. CASE MANAGEMENT DCP- Discharge Planning Updated by [email or web address]: Lavell Eastman on 09/24/19 8:[address] Patient Name: DARA TOMPKINS Admission Status: ER Accout number: [id number] Admission Date: 09-23-2019 : 1970 Admission Diagnosis: Attending: MARYAM GONZALEZ Current LOS: 1 Anticipated DC Date: Planned Disposition: Primary Insurance: [facility] Discharge Planning Comments: PATIENT ADMITTED TO [facility], TO RECEIVE ALL CASE MANAGEMENT SERVICES FROM [facility]. NO ANTICIPATED DISCHARGE NEED OF HOSPITAL CHILD DAYCARE WORKER. High School Foreign Language Teacher: Lavell Eastman Last DP export: 09/26/19 11:59 Patient Name: DARA TOMPKINS Page [phone] at 1308 All edits/amendments must be made on the electronic document DICTATION DATE: 09/26/19 130 QUALITY ASSURANCE ASSISTANT: DM 09/26/19 130 RPT#: [id number] DC DATE: STATUS: ADM IN [facility] [address] [place] [address] END OF REPORT
--- NOTE | 2019-09-26 13:56 | NUR ---
MYCHAL RN PRIMARY NURSE TO CALL [facility] TO SEE ABOUT TRANSPORTATION AND OXYGEN FOR PATIENT. MYCHAL STATES THAT THEIR CASE MANAGEMENT IS ON THE WAY UP TO SEE PATIENT.
--- NOTE | 2019-09-26 14:11 | NUR ---
PATIENT TO REFUSE FLU SHOT, STATES THAT HE GOT ONE IN FROM [facility].
[2019-09-26 17:16] VITALS: BP 122/67
[2019-09-26 17:27] VITALS: BP 122/81
--- NOTE | 2019-09-26 17:49 | NUR ---
IV AND TELEMETRY DCD. DC PLANS GIVEN. ESCORTED TO CAR BY W/C.
== END 2019-09-26 17:50 | disposition home health service (06) | DRG 951 ==
LOC: D.ER 18:26 → D.M2 21:39
PROVIDERS: Family Medicine; ADMIT Legal Medicine; ATTEND Legal Medicine
DX: Z51.5 Encounter for palliative care (principal)